=== PATIENT | male | born 1965 | race Caucasian/White ===

== ENCOUNTER → 2017-08-17 17:12 | Outpatient (CLI) | payer BC, SELFPAY ==
[2017-08-17 18:53] LABS: Amphetamine Urine VISTA NEGATIVE (<1000 ng/mL); Barbiturate Urine VISTA NEGATIVE (< 200 ng/mL); Benzodiazepine Urine VISTA NEGATIVE (< 200 ng/mL); Cocaine Urine VISTA NEGATIVE (< 300 ng/mL); Ecstacy Urine VISTA NEGATIVE (< 500 ng/mL); Methadone Urine VISTA NEGATIVE (< 300 ng/mL); PCP Urine VISTA NEGATIVE (< 25 ng/mL); THC Urine VISTA NEGATIVE (< 50 ng/mL); Vista UDS pH Range 5
== END ==
PROVIDERS: Visit Provider Anesthesiology Pain Medicine
DX: F11.20 Opioid dependence, uncomplicated (principal)
CPT/HCPCS: 80307

== ENCOUNTER → 2018-02-01 09:03 | Outpatient (CLI) | payer BC, SELFPAY ==
[2018-02-01 09:54] LABS: Amphetamine Urine VISTA NEGATIVE (<1000 ng/mL); Barbiturate Urine VISTA NEGATIVE (< 200 ng/mL); Benzodiazepine Urine VISTA NEGATIVE (< 200 ng/mL); Cocaine Urine VISTA NEGATIVE (< 300 ng/mL); Ecstacy Urine VISTA NEGATIVE (< 500 ng/mL); Methadone Urine VISTA NEGATIVE (< 300 ng/mL); PCP Urine VISTA NEGATIVE (< 25 ng/mL); THC Urine VISTA NEGATIVE (< 50 ng/mL); Vista UDS pH Range 5
== END ==
PROVIDERS: Family Provider Family Medicine; PCP Family Medicine; Visit Provider Anesthesiology Pain Medicine
DX: F11.20 Opioid dependence, uncomplicated (principal)
CPT/HCPCS: 80307

== ENCOUNTER → 2018-04-25 16:52 | Outpatient (CLI) | payer BC, SELFPAY ==
[2018-04-25 17:53] LABS: Amphetamine Urine VISTA NEGATIVE (<1000 ng/mL); Barbiturate Urine VISTA NEGATIVE (< 200 ng/mL); Benzodiazepine Urine VISTA NEGATIVE (< 200 ng/mL); Cocaine Urine VISTA NEGATIVE (< 300 ng/mL); Ecstacy Urine VISTA NEGATIVE (< 500 ng/mL); Methadone Urine VISTA NEGATIVE (< 300 ng/mL); PCP Urine VISTA NEGATIVE (< 25 ng/mL); THC Urine VISTA NEGATIVE (< 50 ng/mL); Vista UDS pH Range 7
--- OUTSIDE RECORDS SUMMARY | 2018-06-11 23:42 | XMS RPT_ITS | Summary of Care ---
:1965 Author Organization [facility] Address [address] [place] [address] Care Team Providers Name Role Phone Ritesh Choudhary MD Primary Care Provider Enoc Watts MD Unavailable Reason for Visit Reason Comments Depression Torn Hamstring right leg Encounter Details Date Type Department Care Team Description 01/17/2018 Office Visit [facility] Primary Ritesh Choudhary Mixed hyperlipidemia (Primary Dx); Care Physicians MD [place] Gastroesophageal reflux disease, esophagitis presence not specified; [address] Obesity, Class I, BMI 30-34.9 [place] [id number] Allergies Active Allergy Reactions Severity Noted Date Comments Grass Pollen 01/21/2016 Mold 01/21/2016 as of this encounter Medications Prescription Sig. Disp. Refills Start Date End Date Status oxyCODONE-acetaminop Take 1 tablet Active hen (PERCOCET) by mouth 7.5-325 mg per every 8 tablet (eight) hours as needed . polyethylene glycol Take 17 g by 510 g 0 01/27/2016 Active (MIRALAX) 17 mouth daily. gram/dose powder atorvastatin Take 1 (one) 90 tablet 3 06/03/2017 Active (LIPITOR) 10 MG tablet (10 mg tabletIndications: total) by Hyperlipidemia, mouth daily. unspecified hyperlipidemia type ergocalciferol Take 1 (one) 4 capsule 11 06/03/2017 Active (ERGOCALCIFEROL) capsule 50,000 unit (50,000 Units capsuleIndications: total) by Vitamin D deficiency mouth once a week. pantoprazole Take 1 (one) 30 tablet 11 06/14/2017 06/14/2018 Active (PROTONIX) 40 MG tablet (40 mg tablet total) by mouth daily. buPROPion Take 1 (one) 30 tablet 11 07/14/2017 01/17/2018 Discontinued (WELLBUTRIN XL) 300 tablet (300 MG 24 hr tablet mg total) by mouth daily. as of this encounter Active Problems Problem Noted Date Obesity, Class I, BMI 30-34.9 07/17/2017 Overview: BMI: 33.89: Height 5 foot 6 inches weight 210 pounds. 01/17/2018: BMI: 34.8. Height: 66 inches. Weight: 215 pounds 9.6 ounces. Last Assessment & Plan: Calorie counting is the basis for all weight loss. Typically weigh or measure everything that you place in your mouth. Pay attention to those things that you think are free. Include the calories asso ciated with anything you drink as well. Most that you can buy is required by law to have information on it which breaks down the caloric values for serving size. Look at the serving size and then the weight or measure of that serving size is how you calculate the calories. Try to get over half of your daily calories in the first half of the day Need to find the time for exercise. Activity is great but exercise is activity with a heart rate into the target Zone. Consider calorie counting. But weight loss is minimal without exercise since th e body with turn down the BMI or thermostat over time. Exercise allows you to see the benefit of calorie control. Maximum Heart rate or MHR is defined by 220 - age. Then target heart rate or THR is 65-85% of MHR. Need to allow warmup slowly over 5- 10 minute to prevent going too fast to reach THR. Then exercise interval at THR and allow cool down until at least detention back to the pre exercise hear rate. Therefor if resting heart rate was 70 and your target heart rate was 120. You need to keep moving and wo rk the muscles until you heart rate is below 95 beats per minute. This reduces cramping and the risk of cardiac irritability post exercise. Most weight loss can be obtained best by cycling your calories. By counting the calories and then setting your intake at the minimum needs to maintain your lean body mass you conventional body not to t urn down its basal metabolic rate. 80% or more of your total caloric needs are burned due to your basic metabolic rate. So tell your body that you are are dieting and allowing it to turn down your bas al metabolic rate sabotages your ability to lose weight. The way to do this and still lose weight his first start a diet at your minimum needs calculated by year estimated lean body mass. Then the fir st 4 days of every week set your caloric intake to 300-400 keesha per day less. The last 3 days of the week your back to the minimum. This will stop your body from turning down the basal metabolic rate. More than 4 days below the basic minium will have your body trending down how you burn calories. 3500 keesha equals 1 pound and 150 keesha over 30 days below your needs will result in 1-1/2 pounds per month of weight loss or almost 20 pounds per year. URI (upper respiratory infection) 07/14/2017 Last Assessment & Plan: Negative Influenza A , if the cloudy drainage persists or worsens call and we will start an antibiotic. GERD (gastroesophageal reflux disease) 06/14/2017 Last Assessment & Plan: Controlled with the Pantoprazole. Depression, acute 06/14/2017 Last Assessment & Plan: Definite improvement in affect overall even though you are processing a viral infection. Suggest that after 2 weeks you are at full effect of the 150mg once a day and that would increase to the 300 XL once a day. The SR or 12 hours dose cannot be taken all at once. Hyperlipidemia 05/13/2016 Last Assessment & Plan: You are exactly where you need to be. HDL > 45 and the On HDL is almost at the goal of < 130 at 134. Lumbar disc disease 05/16/2015 Overview: L4/L5 Last Assessment & Plan: Currently symptoms controlled continue with diet and exercise as well as stress reduction. Social History Tobacco Use Types Packs/Day Years Used Date Never Smoker Smokeless Tobacco: Never Used Alcohol Use Drinks/Week oz/Week Comments No Sex Assigned at Date Recorded Not on file as of this encounter Last Filed Vital Signs Vital Sign Reading Time Taken Blood Pressure 121/76 01/17/2018 4:00 PM EDT Pulse 83 01/17/2018 4:00 PM EDT Temperature 36.7 ??C (98 ??F) 01/17/2018 4:00 PM EDT Respiratory Rate 16 01/17/2018 4:00 PM EDT Oxygen Saturation 98% 01/17/2018 4:00 PM EDT Inhaled Oxygen Concentration - - Weight 97.8 kg (215 lb 9.6 oz) 01/17/2018 4:00 PM EDT Height 167.6 cm (5' 6) 01/17/2018 4:00 PM EDT Body Mass Index 34.8 01/17/2018 4:00 PM EDT in this encounter Instructions Patient Instructions - Ritesh Choudhary MD - 03/19/2018 6:39 AM EST Formatting of this note may be different from the original. Problem List Items Addressed This Visit Digestive GERD (gastroesophageal reflux disease) Controlled with the Pantoprazole. Other Hyperlipidemia - Primary You are exactly where you need to be. HDL > 45 and the On HDL is almost at the goal of < 130 at 134. Obesity, Class I, BMI 30-34.9 Calorie counting is the basis for all weight loss. Typically weigh or measure everything that youplace in your mouth. Pay attention to those things that you think are free. Include the calories associated with anything you drink as well. Most that you can buy is required by law to have information on it which breaks down the caloric values for serving size. Look at the serving size and then the weight or measure of that serving size is how you calculate the calories. Try to get over half ofyour daily calories in the first half of the day Need to find the time for exercise. Activity is great but exercise is activity with a heart rate into the target Zone. Consider calorie counting. But weight loss is minimal without exercise since the body with turn down the BMI or thermostat over time. Exercise allows you to see the benefit of calorie control. Maximum Heart rate or MHR is defined by 220 - age. Then target heart rate or THR is 65-85% of MHR. Need to allow warmup slowly over 5- 10 minute to prevent going too fast to reach THR. Then exercise interval at THR and allow cool down until at least detention back to the pre exercise hear rate. Therefor if resting heart rate was 70 and your target heart rate was 120. You need to keep moving and work the muscles until you heart rate is below 95 beats per minute. This reduces cramping and the risk of cardiac irritability post exercise. Most weight loss can be obtained best by cycling your calories. By counting the calories and then setting your intake at the minimum needs to maintain your lean body mass you conventional body not to turn down its basal metabolic rate. 80% or more of your total caloric needs are burned due to your basic metabolic rate. So tell your body that you are are dieting and allowing it to turn down your basal metabolic rate sabotages your ability to lose weight. The way to do this and still lose weight his first start a diet at your minimum needs calculated by year estimated lean body mass. Then the first 4 days of every week set your caloric intake to 300-400 keesha per day less. The last 3 days of theweek your back to the minimum. This will stop your body from turning down the basal metabolic rate. More than 4 days below the basic minium will have your body trending down how you burn calories. 3500 keesha equals 1 pound and 150 keesha over 30 days below your needs will result in 1-1/2 pounds per month of weight loss or almost 20 pounds per year. in this encounter Progress Notes Ritesh Choudhary MD - 03/19/2018 6:34 AM ESTFormatting of this note may be different from the original. Subjective Patient ID: Cody Escalera is a 53 y.o. male. HPI Patient presents today for interval visit. Here to follow-up on depression. Patient reports that he has quit taking his Wellbutrin. He stopped the medication shortly after was prescribed. States it made her feel tired all the time. He states that his symptoms that he had before in general have been improving. Right hamstring injury. Patient was seen in the emergency room at [facility] on 01/16/2018. He had a follow-up with Dr. Watts this morning and confirmed an injury to the right hamstring. They are electing to go conservative management. Gastroesophageal reflux disease: Patient with a history of gastroesophageal reflux symptoms. He is following a diet appropriate for diagnosis. He is currently taking pantoprazole 40 mg once a day in a.m. His symptoms have been very well controlled Hyperlipidemia: Patient had been on a regular exercise program until recent injury with his hamstring. He is currently taking atorvastatin 10 mg once a day and sticking to a diet low in simple carbohydrates, controlled calories, and decrease in animal fat. The following portions of the patient's history were reviewed and updated as appropriate: allergies,current medications, past family history, past medical history, past social history, past surgical history and problem list. Review of Systems Constitutional: Positive for activity change. Negative for chills, fatigue and fever. Not able to exercise due to his injury. HENT: Negative for congestion, ear discharge, ear pain, postnasal drip, sinus pressure, sneezing, sore throat, trouble swallowing and voice change. Eyes: Negative for pain, itching and visual disturbance. Respiratory: Negative for apnea, cough, shortness of breath and wheezing. Cardiovascular: Negative for chest pain, palpitations and leg swelling. Gastrointestinal: Negative for abdominal pain, anal bleeding, blood in stool, constipation, diarrheaand rectal pain. Positive for hemorrhoids. Endocrine: Negative for cold intolerance, heat intolerance and polyuria. Genitourinary: Negative for difficulty urinating, dysuria, frequency and urgency. Musculoskeletal: Positive for back pain, gait problem, myalgias and neck pain. Negative for joint swelling and neck stiffness. See history of present illness. Skin: Negative for rash and wound. Allergic/Immunologic: Negative for immunocompromised state. Neurological: Negative for dizziness, seizures, numbness and headaches. Hematological: Negative for adenopathy. Does not bruise/bleed easily. Psychiatric/Behavioral: Positive for sleep disturbance. Negative for decreased concentration, dysphoric mood and suicidal ideas. The patient is not nervous/anxious. Sleep onset is quick less than 15 mints but awakens to urinate at least 2-3 times per night. Able to get back to sleep reasonably quickly. Goes to bed around 11 pm , and up at 6 am. Objective Vitals: 01/17/18 1600 BP: 121/76 BP Location: Left arm Patient Position: Sitting BP Cuff Size: Adult Pulse: 83 Resp: 16 Temp: 98 ??F (36.7 ??C) TempSrc: Oral SpO2: 98% Weight: 97.8 kg (215 lb 9.6 oz) Height: 5' 6 Estimated body mass index is 34.8 kg/m?? as calculated from the following: Height as of this encounter: 5' 6. Weight as of this encounter: 97.8 kg (215 lb 9.6 oz). Physical Exam Constitutional: He is oriented to person, place, and time. He appears well- developed and well-nourished. HENT: Head: Normocephalic. Right Ear: External ear normal. Left Ear: External ear normal. Mouth/Throat: Oropharynx is clear and moist. Eyes: Pupils are equal, round, and reactive to light. Conjunctivae and EOM are normal. Right eye exhibits no discharge. Left eye exhibits no discharge. No scleral icterus. Neck: Normal range of motion. No JVD present. No tracheal deviation present. No thyromegaly present. Cardiovascular: Normal rate and regular rhythm. No murmur heard. Pulmonary/Chest: No stridor. No respiratory distress. He has no wheezes. Abdominal: Soft. He exhibits no distension. There is no tenderness. Musculoskeletal: He exhibits no edema or tenderness. Swelling with defect in the right hamstring. Have wrapped it today with an James wrap. Lymphadenopathy: He has no cervical adenopathy. Neurological: He is alert and oriented to person, place, and time. No cranial nerve deficit. Skin: Skin is warm. No rash noted. Psychiatric: He has a normal mood and affect. His behavior is normal. Judgment and thought content normal. Assessment/Plan: Problem List Items Addressed This Visit Digestive GERD (gastroesophageal reflux disease) Controlled with the Pantoprazole. Other Hyperlipidemia - Primary You are exactly where you need to be. HDL > 45 and the On HDL is almost at the goal of < 130 at 134. Obesity, Class I, BMI 30-34.9 Calorie counting is the basis for all weight loss. Typically weigh or measure everything that youplace in your mouth. Pay attention to those things that you think are free. Include the calories associated with anything you drink as well. Most that you can buy is required by law to have information on it which breaks down the caloric values for serving size. Look at the serving size and then the weight or measure of that serving size is how you calculate the calories. Try to get over half ofyour daily calories in the first half of the day Need to find the time for exercise. Activity is great but exercise is activity with a heart rate into the target Zone. Consider calorie counting. But weight loss is minimal without exercise since the body with turn down the BMI or thermostat over time. Exercise allows you to see the benefit of calorie control. Maximum Heart rate or MHR is defined by 220 - age. Then target heart rate or THR is 65-85% of MHR. Need to allow warmup slowly over 5- 10 minute to prevent going too fast to reach THR. Then exercise interval at THR and allow cool down until at least detention back to the pre exercise hear rate. Therefor if resting heart rate was 70 and your target heart rate was 120. You need to keep moving and work the muscles until you heart rate is below 95 beats per minute. This reduces cramping and the risk of cardiac irritability post exercise. Most weight loss can be obtained best by cycling your calories. By counting the calories and then setting your intake at the minimum needs to maintain your lean body mass you conventional body not to turn down its basal metabolic rate. 80% or more of your total caloric needs are burned due to your basic metabolic rate. So tell your body that you are are dieting and allowing it to turn down your basal metabolic rate sabotages your ability to lose weight. The way to do this and still lose weight his first start a diet at your minimum needs calculated by year estimated lean body mass. Then the first 4 days of every week set your caloric intake to 300-400 keesha per day less. The last 3 days of theweek your back to the minimum. This will stop your body from turning down the basal metabolic rate. More than 4 days below the basic minium will have your body trending down how you burn calories. 3500 keesha equals 1 pound and 150 keesha over 30 days below your needs will result in 1-1/2 pounds per month of weight loss or almost 20 pounds per year. For any new medications prescribed today, patient was educated about indications for the medication,how to take the medication and potential side effects of the medications. Rationale: Overweight (Findings) BMI Discussed elevated Body Mass Index (BMI): Advised regular exercise. Discussed elevated Body Mass Index (BMI): Advised healthy and appropriate diet. Mary Dorantes LPN - 01/17/2018 4:51 PM EDTRooming Documentation How often do you need to have someone help you when you read instructions, pamphlets or other written material from your doctor or pharmacy? Health Literacy Patient Response: Never Are you experiencing any side effects or adverse reactions to your medications? Patient response: No Do you have any problems taking your medications? Patient Response: No Patient states they do understand their medications Are you taking any [id number] medications or supplements? Patient Response: None Since last being seen in this office, have you seen another healthcare provider? Patient Response: Yes. If yes, where did you see this provider? Pain Doctor Mary Dorantes LPN - 01/17/2018 3:57 PM EDTPt here to f/u on his depression. Pt reports he has quit taking the wellbutrin. Pt stopped the medica tion shortly after it was prescribed. Pt reports it made him feel tired all the time. Pt also in [facility] ED 01/16/18. Pt has a tear in his right hamstring. Pt did f/u with Dr. Watts this AM.in this encounter Miscellaneous Notes Assessment & Plan Note - Ritesh Choudhary MD - 03/19/2018 6:38 AM EST Associated Problem(s): Obesity, Class I, BMI 30-34.9Calorie counting is the basis for all weight loss. Typically weigh or measure everything that you place in your mouth. Pay attention to those things that you think are free. Include the calories associated with anything you drink as well. Most that you can buy is required by law to have information on it which breaks down the caloric values for serving size. Look at the serving size and then theweight or measure of that serving size is how you calculate the calories. Try to get over half of your daily calories in the first half of the day Need to find the time for exercise. Activity is great but exercise is activity with a heart rate into the target Zone. Consider calorie counting. But weight loss is minimal without exercise since the body with turn down the BMI or thermostat over time. Exercise allows you to see the benefit of calorie control. Maximum Heart rate or MHR is defined by 220 - age. Then target heart rate or THR is 65-85% of MHR. Need to allow warmup slowly over 5- 10 minute to prevent going too fast to reach THR. Then exercise interval at THR and allow cool down until at least detention back to the pre exercise hear rate. Therefor if resting heart rate was 70 and your target heart rate was 120. You need to keep moving and work the muscles until you heart rate is below 95 beats per minute. This reduces cramping and the risk of cardiac irritability post exercise. Most weight loss can be obtained best by cycling your calories. By counting the calories and then setting your intake at the minimum needs to maintain your lean body mass you conventional body not to turn down its basal metabolic rate. 80% or more of your total caloric needs are burned due to your basic metabolic rate. So tell your body that you are are dieting and allowing it to turn down your basal metabolic rate sabotages your ability to lose weight. The way to do this and still lose weight his first start a diet at your minimum needs calculated by year estimated lean body mass. Then the first 4 days of every week set your caloric intake to 300-400 keesha per day less. The last 3 days of theweek your back to the minimum. This will stop your body from turning down the basal metabolic rate. More than 4 days below the basic minium will have your body trending down how you burn calories. 3500 keesha equals 1 pound and 150 keesha over 30 days below your needs will result in 1-1/2 pounds per month of weight loss or almost 20 pounds per year. Assessment & Plan Note - Ritesh Choudhary MD - 01/17/2018 4:21 PM EDT Associated Problem(s): GERD (gastroesophageal reflux disease)Controlled with the Pantoprazole.Assessment & Plan Note - Ritesh Choudhary MD - 01/17/2018 4:18 PM EDTAssociated Problem(s): HyperlipidemiaYou are exactly where you need to be. HDL > 45 and the On HDL is almost at the goal of < 130at 134.in this encounter Plan of Treatment Health Maintenance Due Date Last Done Comments SEQUENTIAL INFLUENZA VACCINE 05/22/2018 06/14/2017 (Declined) Postponed from 01/14/2018 (#1) (Not Indicated) TETANUS EVERY 10 YR 05/16/2019 05/16/2009 COLONOSCOPY 05/16/2025 05/16/2015 as of this encounter Visit Diagnoses Diagnosis Mixed hyperlipidemia - Primary Gastroesophageal reflux disease, esophagitis presence not specified Obesity, Class I, BMI 30-34.9
--- OUTSIDE RECORDS SUMMARY | 2018-06-11 23:42 | XMS RPT_ITS ---
:1965 Author Organization OHIP Care Team Providers Name Role Phone Farnaz Doyle Attending Unavailable Farnaz Doyle Referring Unavailable Primay Care Physicia, No Primary Care Unavailable Farnaz Doyle Attending Unavailable Farnaz Doyle Referring Unavailable Philip Delvalle Primary Care Unavailable Farnaz Doyle Attending Unavailable Farnaz Doyle Referring Unavailable Philip Delvalle Primary Care Unavailable Funmi, Geoffrey Rosenthal Admitting Unavailable Funmi, Geoffrey Rosenthal Attending Unavailable Funmi, Geoffrey Rosenthal Primary Care Unavailable Funmi, Geoffrey Rosenthal Primary Care Unavailable Saad Sears Admitting Unavailable Saad Sears Attending Unavailable FUNMI, GEOFFREY COLEMAN Attending Unavailable FUNMI, GEOFFREY COLEMAN Primary Care Unavailable FUNMI, GEOFFREY COLEMAN Attending Unavailable FUNMI, GEOFFREY COLEMAN Primary Care Unavailable EDWIGE MANNING Attending Unavailable FUNMI, GEOFFREY COLEMAN Primary Care Unavailable ALBERT TREVINO Attending Unavailable FUNMI, GEOFFREY COLEMAN Primary Care Unavailable FUNMI, GEOFFREY COLEMAN Attending Unavailable FUNMI, GEOFFREY COLEMAN Primary Care Unavailable FUNMI, GEOFFREY COLEMAN Attending Unavailable FUNMI, GEOFFREY COLEMAN Primary Care Unavailable KATERINA SINCLAIR Attending Unavailable FUNMI, GEOFFREY COLEMAN Primary Care Unavailable ALBERT TREVINO Attending Unavailable FUNMI, GEOFFREY COLEMAN Primary Care Unavailable ALBERT TREVINO Attending Unavailable FUNMI, GEOFFREY COLEMAN Primary Care Unavailable FUNMI, GEOFFREY COLEMAN Attending Unavailable FUNMI, GEOFFREY COLEMAN Primary Care Unavailable PROBLEMS PROBLEMS DATE TYPE CONDITION / CODE ATTENDING STATUS SOURCE 04/25/2018 Unknown F11.20 - Opioid BasalFarnaz hubbard Active [place] dependence, Community uncomplicated / Hospital F11.20(ICD-10) Repository 2018 Admitting Calculus of ureter / NA [employer] Diagnosis N20.1(ICD-10) [place] Rep[place] 2018 Admitting Unspecified NA [employer] Diagnosis hydronephrosis / [place]) N13.30(ICD-10) Repository 02/10/2018 Admitting Strain of muscle, BELINDA, [employer] diagnosis fascia and tendon of ALBERT Worthy the posterior muscle Repository group at thigh level, right thigh, subsequent encounter / S76.311D(ICD-10) 01/17/2018 Admitting Unknown / BELINDA, [employer] diagnosis UNK(Unknown) ALBERT Worthy Repository 07/14/2017 Admitting Acute upper [employer] diagnosis respiratory JARED Three infection, Repository unspecified / J06.9(ICD-10) 07/14/2017 Admitting Other viral agents FUNMI, [employer] diagnosis as the cause of JARED Three diseases classified Repository elsewhere / B97.89(ICD-10) 07/14/2017 Admitting Other general FUNMI, [employer] diagnosis symptoms and signs / JARED Three R68.89(ICD-10) Repository 06/14/2017 Admitting Major depressive GEOFFREY CHOUDHARY Active [facility] diagnosis disorder, single JARED Three episode, unspecified Repository / F32.9(ICD-10) 06/14/2017 Admitting Gastro-esophageal GEOFFREY CHOUDHARY [facility] diagnosis reflux disease JARED Worthy without esophagitis Repository / K21.9(ICD-10) PROCEDURES PROCEDURES No Procedure Records FoundRESULTS RESULTS URINE DRUG SCREEN Collected: 04/25/2018 Status: F Source: [place]LICA (VISTA) 4:58 PM [facility] REPOSITORY Order Comment: List of Drugs Taken or Suspected? UNK TYPE CODE TESTS RESULT OUT OF RANGE REFERENCE UNITS LAB L505.0075 TO BE Normal CONFIRMED Result Comment: CONFIRMATORY TESTING FOR ALL POSITIVE URINE DRUG SCREEN RESULTS WILL ONLY BE SENT OUT UPON PHYSICIAN ORDER. VISTA Urine Drug Screen methods provide only preliminary analytical test results. A more specific alternate chemical method must be used in order to obtain a confirmed analytical result. Gas chromatography/mass spectrometery (GC/MS) is the preferred confirmatory method. Clinical consideration and professional judgement should be applied to any drug of abuse test result, particularly when preliminary positive results are used. URINE TCA TESTING MUST BE ORDERED SEPARATELY. USE TEST MNEMONIC: [facility] LAB L505.5005 VISTA UDS PH 7 Normal LAB L505.5015 <1000 ng/mL AMPHETAMINES Normal NEGATIVE LAB L505.5025 < 200 ng/mL BARBITIURATES Normal NEGATIVE LAB L505.5035 < 200 ng/mL BENZODIAZIPINE Normal NEGATIVE LAB L505.5045 < 300 ng/mL COCAINE Normal NEGATIVE LAB L505.5055 < 500 ng/mL ECSTACY Normal NEGATIVE LAB L505.5065 < 300 ng/mL METHADONE Normal NEGATIVE LAB L505.5075 < 300 ng/mL OPIATES Normal NEGATIVE LAB L505.5085 < 25 ng/mL PCP Normal NEGATIVE LAB L505.5095 < 50 ng/mL THC Normal NEGATIVE Performed By: #### L505.5000 #### [facility] [address] [place], [address] MISCELLANEOUS LAB Collected: 04/25/2018 Status: F Source: ANGÉLICA PROCEDURE 4:58 PM [facility] REPOSITORY Order Comment: Test(s) Ordered: [id number] URINE TOX RUN LOWEST TEST TYPE CODE TESTS RESULT OUT OF RANGE REFERENCE UNITS LAB L801.1541 Normal [facility] LAB TEST Result Comment: [id number] 6+OXYCODONE-BUND (ng/mL) DRUG RESULT SCREEN CUTOFF ____ Amphetamines,Urine Negative ng/mL 1000 Amphetamine test includes Amphetamine and Methamphetamine. Barbiturates Negative ng/mL 200 Benzodiazepines Negative ng/mL 200 Cannabinoid Negative ng/mL 20 Cocaine (Metab) Negative ng/mL 300 Opiates Negative ng/mL 300 Opiates test includes Codeine, Morphine, Hydromorphone, Hydrocodone. Oxycodone/Oxymorphone,Urine Positive ng/mL 300 Test includes Oxydodone and Oxymorphone. Oxycodone Positive Oxycodone GC/MS 981 ng/mL 300 Oxymorphone Positive Oxymorphone GC/MS 596 ng/mL 300 TESTING PERFORMED AT [facility]. ORIGINAL REPORT ON FILE IN LAB CONTAINS ADDITIONAL TEST SITE INFORMATION. Performed By: #### L801.1541 #### [facility] [address] [place], [place] [address]all naresh. [place], [place], [id number] URINE MACROSCOPIC Collected: 2018 Status: F Source: [employer] 7:15 PM SYSTEM ([place]) REPOSITORY TYPE CODE TESTS RESULT OUT OF RANGE REFERENCE UNITS LAB UCOL YELLOW URINE COLOR YELLOW LAB [facility] CLEAR URINE CLARITY CLEAR LAB USPG 1.010-1.025 URINE SPEC GRAVITY 1.015 LAB UPH 5.0-7.0 URINE PH 6.5 LAB AUTP NEGATIVE mg/dl URINE TOTAL PROTEIN NEGATIVE LAB UGL NEGATIVE mg/dl URINE GLUCOSE NEGATIVE LAB UKET NEGATIVE mg/dl URINE KETONE NEGATIVE LAB UBIL NEGATIVE URINE BILIRUBIN NEGATIVE LAB UHGB NEGATIVE URINE Abnormal HEMOGLOBIN MODERATE LAB UNIT NEGATIVE URINE NITRATES NEGATIVE LAB UROB 0.2-1.0 mg/dl URINE UROBILINOGEN 0.2 LAB ULEUK NEGATIVE URINE LEUKOTEST NEGATIVE Performed By: #### ALINA, VIRI #### Testing performed at [address] [address] URINE MICROSCOPIC Collected: 2018 Status: F Source: [employer] 7:15 PM [place] ([place] REPOSITORY TYPE CODE TESTS RESULT OUT OF RANGE REFERENCE UNITS LAB UWBC NEGATIVE /HPF URINE 1 TO 5 WBC'S LAB URBC NEGATIVE /HPF URINE TOO Abnormal RBC'S NUMEROUS TO COUNT LAB EPI /HPF 1 TO 5 EPITHELIAL CELLS LAB MUCUS NEGATIVE MUCUS NEGATIVE LAB BACT NEGATIVE TRACE Abnormal BACTERIA LAB FERN NONE NONE CRYSTAL LAB CASTS NONE /LPF CASTS NONE LAB UCOM URINE REFLEX COMMENT CULTURE PER ESTABLISHED CRITERIA. Performed By: #### ALINA, VIRI #### Testing performed at [address] [address] Observed: 2018 Status: F Source: [employer] URINE CULTURE 7:15 PM [place] REPOS[place] SPECIMEN DESCRIPTION URINE CLEAN CATCH UA DIPSTICK LEUKOCYTE NEGATIVE * Result Note: NITRITE NEGATIVE * CULTURE NO GROWTH 2 DAYS * Result Note: Testing performed at [place] [address] * REPORT STATUS 02/28/2018 * Result Note: FINAL * Performed By: #### AURNC #### Testing performed at [address] [address] Testing performed at [address] [address] [address] ABDOMEN/PELVIS WITHOUT Observed: 2018 Status: F Source: [employer] CONTRAST 6:10 PM [place] ([place]) REPOSITORY EXAM: CT ABDOMEN/PELVIS WITHOUT CONTRAST CLINICAL STATEMENT: Left lower quadrant and back pain today. COMPARISON: CT abdomen and pelvis May 10, 2017. TECHNIQUE: CT examination of the abdomen and pelvis without IV contrast. Coronal and sagittal reformations were performed. Dose reduction techniques were achieved by using automated exposure control and/or adjustment of mA and/or kV according to patient size and/or use of iterative reconstruction technique. FINDINGS: KUB FINDINGS: There is a 5 mm stone in the proximal left ureter with a density of 700 Hounsfield units resulting in mild left-sided hydronephrosis. There are no additional ureteral or bladder stones. No right-sided hydronephrosis. Right kidney contains 2 stones with the largest measuring 4 mm. The left kidney contains a single punctate stone in the interpolar region. There is a similar cyst in the inferior pole cortex of the right kidney measuring about 1.2 cm. Urinary bladder is nondistended. CT ABDOMEN/PELVIS: Lung bases show mild dependent atelectasis. Stable small focus of linear atelectasis or scar in the lingula. Evaluation of solid organs is limited without contrast. The liver, spleen, pancreas and adrenal glands are grossly normal. The gallbladder appears normal with no calcified stones. Small bowel loops show no signs of obstruction or appreciable loop thickening without contrast. There is no bulky mesenteric or retroperitoneal adenopathy. No intra-abdominal or pelvic ascites. Prostate gland appears grossly normal. As before, there is severe degenerative disc disease L4-L5 with a stable grade 1 spondylolisthesis L4 on L5 secondary to chronic bilateral spondylolysis. IMPRESSION: 1. Proximal left ureteral stone measuring 5 mm resulting in mild left-sided hydronephrosis. 2. Several bilateral renal stones measuring up to 4 mm. 3. Stable grade 1 spondylolisthesis L4 on L5 secondary to chronic bilateral spondylolysis associated with severe degenerative disc disease. CBC Collected: 2018 Status: F Source: [employer] 5:48 PM [place] ([place]) REPOSITORY TYPE CODE TESTS RESULT OUT OF REFERENCE UNITS RANGE LAB WBC 3.6-11.0 /cmm WBC COUNT 6.7 LAB RBC 4.0-6.1 /cmm RBC COUNT 5.00 LAB HGB 14.0-18.0 G/DL Low HEMOGLOBIN 13.9 LAB HCT 42.0-52.0 % Low HEMATOCRIT 41.3 LAB MCV 80.0-100.0 FL MCV 82.5 LAB MCH 26.0-35.0 PG MCH 27.8 LAB MCHC 27.0-37.0 G/DL MCHC 33.7 LAB RDW 11.5-14.5 % RDW High 14.7 LAB PLTC 130.0-400.0 /cmm PLATELET COUNT 187 LAB MPV 7.4-11.0 FL MPV 7.4 LAB DTYPE % DTYPE AUTO DIFF LAB NEUT 37.0-75.0 % NEUTROPHIL 56.5 LAB LYMP 20.0-55.0 % LYMPHOCYTE 28.1 LAB AOMONO 0.0-10.0 % MONOCYTE High 12.3 LAB EOS 0.0-11.0 % EOSINOPHIL 2.3 LAB BASO 0.0-2.0 % BASOPHIL 0.8 LAB ANC 1.0-7.0 x10 ABSOLUTE NEUTROPHIL COUNT 3.8 LAB ALYM X10 ABSOLUTE LYMPHOCYTE 1.90 LAB AMONO X10 ABSOLUTE MONOCYTE 0.8 LAB AEO X10 ABSOLUTE EOS 0.20 LAB ABAS X10 ABSOLUTE BAS 0.1 Performed By: #### ACBC, CMPF #### Testing performed at [address] [address] [facility] FASTING Collected: 2018 Status: F Source: [facility] 5:48 PM SYSTEM ([place]) REPOSITORY TYPE CODE TESTS RESULT OUT OF REFERENCE UNITS RANGE LAB GLF 70-100 MG/DL High GLUCOSE 101 FASTING Result Comment: NORMAL <100 mg/dL PREDIABETES 101-126 mg/dL DIABETES 126 mg/dL or higher LAB BUN 7-20 MG/DL BLOOD UREA 19 NITROGEN LAB CRET 0.66-1.25 MG/DL CREATININE SERUM 1.0 LAB NA 136-145 MMOL/L SODIUM 139 LAB K 3.5-5.1 MMOL/L POTASSIUM 3.5 LAB CL 98-107 MMOL/L CHLORIDE 107 LAB CA 8.4-10.2 MG/DL CALCIUM 9.0 LAB TP 6.3-8.2 GM/DL TOTAL PROTEIN 7.5 LAB ALB 3.5-5.0 G/dl ALBUMIN 4.3 LAB TBIL 0.2-1.2 MG/DL BILIRUBIN TOTAL 0.5 LAB AST 15-41 IU/L AST 21 LAB ALKP 38-126 IU/L ALK 47 PHOSPHATASE LAB CO2 22-30 MMOL/L CO2 24 LAB AG 1.3-2.2 RATIO A:G RATIO 1.3 LAB ALT 17-63 IU/L ALT 24 LAB GFR ml/min/1.73s q.m EST. GFR,Non >60 LAB GFRB ml/min/1.73s q.m EST. GFR, >60 [place] LAB GFRCOM GFR Information Average GFR for 50-59 years old = 93. Result Comment: Chronic Kidney disease, GFR = <60. Kidney failure, GFR = <15. The GFR estimate is not adjusted for extreme body surface area or acute process, nor has it been validated for women or ethnic groups other than and . Performed By: #### ACBC, CMPF #### Testing performed at [facility] [address] [place] [address] URINE DRUG SCREEN Collected: 02/01/2018 Status: F Source: ANGÉLICA (YANA) 9:09 AM [facility] REPOSITORY Order Comment: Comments: [id number] URINE DRUG SCREEN RUN LOWEST TEST List of Drugs Taken or Suspected? UNK TYPE CODE TESTS RESULT OUT OF RANGE REFERENCE UNITS LAB L505.0075 TO BE Normal CONFIRMED Result Comment: CONFIRMATORY TESTING FOR ALL POSITIVE URINE DRUG SCREEN RESULTS WILL ONLY BE SENT OUT UPON PHYSICIAN ORDER. VISTA Urine Drug Screen methods provide only preliminary analytical test results. A more specific alternate chemical method must be used in order to obtain a confirmed analytical result. Gas chromatography/mass spectrometery (GC/MS) is the preferred confirmatory method. Clinical consideration and professional judgement should be applied to any drug of abuse test result, particularly when preliminary positive results are used. URINE TCA TESTING MUST BE ORDERED SEPARATELY. USE TEST MNEMONIC: [facility] LAB L505.5005 VISTA UDS PH 5 Normal LAB L505.5015 <1000 ng/mL AMPHETAMINES Normal NEGATIVE LAB L505.5025 < 200 ng/mL BARBITIURATES Normal NEGATIVE LAB L505.5035 < 200 ng/mL BENZODIAZIPINE Normal NEGATIVE LAB L505.5045 < 300 ng/mL COCAINE Normal NEGATIVE LAB L505.5055 < 500 ng/mL ECSTACY Normal NEGATIVE LAB L505.5065 < 300 ng/mL METHADONE Normal NEGATIVE LAB L505.5075 < 300 ng/mL OPIATES Normal NEGATIVE LAB L505.5085 < 25 ng/mL PCP Normal NEGATIVE LAB L505.5095 < 50 ng/mL THC Normal NEGATIVE Performed By: #### L505.5000 #### [facility] [address] [place] [place], [address] MISCELLANEOUS LAB Collected: 02/01/2018 Status: F Source: ANG[facility]LICA PROCEDURE 9:09 AM [facility] REPOSITORY Order Comment: Comments: [id number] URINE DRUG SCREEN RUN LOWEST TEST Test(s) Ordered: [id number] URINE DRUG SCREEN RUN LOWEST TEST TYPE CODE TESTS RESULT OUT OF RANGE REFERENCE UNITS LAB L801.1541 Normal [facility] LAB TEST Result Comment: [id number] 6+OXYCODONE-BUND (ng/mL) DRUG RESULT SCREEN CUTOFF ____ Amphetamines,Urine Negative ng/mL 1000 Amphetamine test includes Amphetamine and Methamphetamine. Barbiturates Negative ng/mL 200 Benzodiazepines Negative ng/mL 200 Cannabinoid Negative ng/mL 20 Cocaine (Metab) Negative ng/mL 300 Opiates Negative ng/mL 300 Opiates test includes Codeine, Morphine, Hydromorphone, Hydrocodone. Oxycodone/Oxymorphone,Urine Negative ng/mL 300 Test includes Oxydodone and Oxymorphone. TESTING PERFORMED AT [facility]. ORIGINAL REPORT ON FILE IN LAB CONTAINS ADDITIONAL TEST SITE INFORMATION. Performed By: #### L801.1541 #### [facility] [place], [address] XR PELVIS 1 OR 2 Observed: 01/16/2018 Status: F Source: [facility] 7:06 PM [facility] REPOSITORY Exam Date/Time: 01/16/2018 19:16 EDT Reason for Exam: Pain, Traumatic Report STUDY: XR Pelvis 1 or 2 Views; XR Femur Min 2 Views Right; 01/16/2018 7:16 pm INDICATION: Pain, Traumatic; Leg pain. COMPARISON: None. ACCESSION NUMBER(S): [id number]; [id number] ORDERING CLINICIAN: Saad Sears FINDINGS: There is no fracture. There is no dislocation. No significant degenerative changes seen. No soft tissue abnormality seen along the right thigh.. IMPRESSION: No fracture or dislocation. FINAL REPORT Dictated: 01/16/2018 7:38 pm Austin Ricks MD Signed (Electronic Signature): 01/16/2018 7:38 pm Signed by: Austin Ricks MD Technologist: [facility] XR FEMUR MIN 2 Observed: 01/16/2018 Status: F Source: [facility] VIEWS RIGHT 7:06 PM [facility] REPOSITORY Exam Date/Time: 01/16/2018 19:16 EDT Reason for Exam: Leg pain Report STUDY: XR Pelvis 1 or 2 Views; XR Femur Min 2 Views Right; 01/16/2018 7:16 pm INDICATION: Pain, Traumatic; Leg pain. COMPARISON: None. ACCESSION NUMBER(S): [id number]; [id number] ORDERING CLINICIAN: Saad Sears FINDINGS: There is no fracture. There is no dislocation. No significant degenerative changes seen. No soft tissue abnormality seen along the right thigh.. IMPRESSION: No fracture or dislocation. FINAL REPORT Dictated: 01/16/2018 7:38 pm Austin Ricks MD Signed (Electronic Signature): 01/16/2018 7:38 pm Signed by: Austin Ricks MD Technologist: [facility] CBC W/ AUTO DIFF Collected: 01/13/2018 Status: F Source: [facility] 6:14 AM [facility] REPOSITORY TYPE CODE TESTS RESULT OUT OF RANGE REFERENCE UNITS LAB 97322258(L 3.6-11.0 E3/mcL OINC) Normal WBC 6.6 LAB 31551147(L 3.90-6.10 E6/mcL OINC) Normal RBC 4.61 LAB 62238689(L 13.5-18.0 G/DL OINC) Low Hgb 13.0 LAB 79142939(L 42.0-52.0 % OINC) Low Hct 39.2 LAB 61535689(L 11.5-14.5 % OINC) Normal RDW 13.5 LAB 49937775(L 27.0-31.0 pg OINC) Normal MCH 28.1 LAB 69044414(L 33.0-37.0 G/DL OINC) Normal MCHC 33.1 LAB 89122191(L 78.0-100.0 fL OINC) Normal MCV 85.0 LAB 78522700(L 7.4-11.0 fL OINC) Normal MPV 7.8 LAB 89731785(L 130-400 E3/mcL OINC) Normal Platelet 230 Performed By: #### [id number] #### [facility] [place] [address] AUTO DIFF Collected: 01/13/2018 Status: F Source: [facility] 6:14 AM [facility] REPOSITORY Order Comment: Order Added by Discern Expert. TYPE CODE TESTS RESULT OUT OF RANGE REFERENCE UNITS LAB 56171426(L 37.0-75.0 % OINC) Normal Neutro Auto 55.7 LAB 64507415(L 20.0-55.0 % OINC) Normal Lymph Auto 32.5 LAB 76566462(L 0.0-10.0 % OINC) High [place]ill Auto 10.5 LAB 15012926(L 0.0-11.0 % OINC) Normal Eos Auto 0.9 LAB 78823128(L 0.0-2.0 % OINC) Normal Basophil Auto 0.4 LAB 40453963(L 1.4-6.5 E3/mcL OINC) Normal Neutro 3.7 Absolute LAB 08640967(L 1.2-3.4 E3/mcL OINC) Normal Lymph Absolute 2.1 LAB 91245860(L 0.0-0.7 E3/mcL OINC) Normal Estill Absolute 0.7 LAB 09622863(L 0.0-0.7 E3/mcL OINC) Normal Eos Absolute 0.1 LAB 85168670(L 0.0-0.2 E3/mcL OINC) Normal Basophil 0.0 Absolute Performed By: #### [id number] #### [place] [employer] [address] [place] [address] TSH Collected: 01/13/2018 Status: F Source: [facility] 6:14 AM [facility] REPOSITORY TYPE CODE TESTS RESULT OUT OF RANGE REFERENCE UNITS LAB 60672799(LO 0.30-5.60 mIU/m INC) Normal TSH 2.79 Performed By: #### [id number] #### [facility] [employer] [facility] [place] [address] CMP Collected: 01/13/2018 Status: F Source: [facility] 6:14 AM [facility] REPOSITORY TYPE CODE TESTS RESULT OUT OF RANGE REFERENCE UNITS LAB 84474290(L 70-99 mg/dL OINC) Glucose Normal Lvl 99 LAB 22130731(L 8.4-10.2 mg/dL OINC) Calcium Normal Lvl 8.9 LAB 21014416(L 136-145 mEq/L OINC) Sodium Normal Lvl 140 LAB 73045858(L 3.5-5.1 mEq/L OINC) Normal Potassium Lvl 4.0 LAB 71425175(L 98-107 mEq/L OINC) High Chloride 108 LAB 36484150(L 24.0-30.0 mEq/L OINC) CO2 Normal 26.3 LAB 38527017(L 7-18 mg/dL OINC) High BUN 19 LAB 9456736(LO 0.6-1.3 mg/dL INC) Normal Creatinine 1.1 LAB 90122540(L 42-121 Int._Unit/ OINC) L Alk Phos Normal 42 LAB 52782284(L 0.2-1.0 mg/dL OINC) Bili Normal Total 1.0 LAB 33725977(L 3.2-5.0 G/DL OINC) Albumin Normal Lvl 4.0 LAB 08116822(L 6.4-8.3 G/DL OINC) Total Normal Protein 6.9 LAB 91940794(L 10-40 Int._Unit/ OINC) L ALT Normal 18 LAB 12738681(L 10-42 Int._Unit/ OINC) L AST Normal 17 LAB 40960239(L 5.4-30.0 ratio OINC) Normal BUN/Creat Ratio 17.3 LAB 20410230(L 2.0-4.0 G/DL OINC) Globulin Normal 2.9 LAB 34407732(L 1.1-1.9 ratio OINC) A/G Normal Ratio 1.4 Performed By: #### [id number] #### [facility] [employer] [address] [place] [address] EGFR Collected: 01/13/2018 Status: F Source: [facility] 6:14 AM [facility] REPOSITORY Order Comment: Order added by Discern Expert. TYPE CODE TESTS RESULT OUT OF RANGE REFERENCE UNITS LAB 20971857(LO mL/min/1.73 INC) m2 Normal eGFR >60 LAB 58955536(LO mL/min/1.73 INC) m2 Normal eGFR AA >60 Performed By: #### [id number] #### [facility] [address] [place] [address] LIPID PROFILE Collected: 01/13/2018 Status: F Source: [facility] 6:14 AM [facility] REPOSITORY TYPE CODE TESTS RESULT OUT OF RANGE REFERENCE UNITS LAB 93524247(LO 50-200 mg/dL INC) Normal Chol 184 Result Comment: TOTAL CHOLEESTEROL: <200 NORMAL 200 - 239 BORDERLINE HIGH >240 HIGH LAB 46170720(LOINC) >=41 mg/dL Normal HDL 50 LAB 05090995(LOINC) 0-130 mg/dL Normal LDL 120 Result Comment: <100 OPTIMAL 100-129 NEAR / ABOVE OPTIMAL 130-159 BORDERLINE HIGH 160-189 HIGH >190 VERY HIGH CALC LDL NOT VALID WHEN TRIGLYCERIDE IS >400 MG/DL LAB 64063888(LOINC) 35-150 mg/dL Normal Trig 71 Result Comment: <150 NORMAL 150-199 BORDERLINE HIGH 200-499 HIGH >500 VERY HIGH LAB 77015911(LOINC) Normal VLDL 14 Performed By: #### [id number] #### [facility] [address] [place] [id number] URINE DRUG SCREEN Collected: 08/17/2017 Status: F Source: [place] (VISTA) 5:21 PM [facility] REPOSITORY Order Comment: List of Drugs Taken or Suspected? . TYPE CODE TESTS RESULT OUT OF RANGE REFERENCE UNITS LAB L505.0075 TO BE Normal CONFIRMED Result Comment: CONFIRMATORY TESTING FOR ALL POSITIVE URINE DRUG SCREEN RESULTS WILL ONLY BE SENT OUT UPON PHYSICIAN ORDER. VISTA Urine Drug Screen methods provide only preliminary analytical test results. A more specific alternate chemical method must be used in order to obtain a confirmed analytical result. Gas chromatography/mass spectrometery (GC/MS) is the preferred confirmatory method. Clinical consideration and professional judgement should be applied to any drug of abuse test result, particularly when preliminary positive results are used. URINE TCA TESTING MUST BE ORDERED SEPARATELY. USE TEST MNEMONIC: [facility] LAB L505.5005 VISTA UDS PH 5 Normal LAB L505.5015 <1000 ng/mL AMPHETAMINES Normal NEGATIVE LAB L505.5025 < 200 ng/mL BARBITIURATES Normal NEGATIVE LAB L505.5035 < 200 ng/mL BENZODIAZIPINE Normal NEGATIVE LAB L505.5045 < 300 ng/mL COCAINE Normal NEGATIVE LAB L505.5055 < 500 ng/mL ECSTACY Normal NEGATIVE LAB L505.5065 < 300 ng/mL METHADONE Normal NEGATIVE LAB L505.5075 < 300 ng/mL OPIATES Normal NEGATIVE LAB L505.5085 < 25 ng/mL PCP Normal NEGATIVE LAB L505.5095 < 50 ng/mL THC Normal NEGATIVE Performed By: #### L505.5000 #### [facility] [address] [place], [address] MISCELLANEOUS LAB Collected: 08/17/2017 Status: F Source: ANG[place]LICA PROCEDURE 5:21 PM [facility] REPOSITORY Order Comment: Test(s) Ordered: [id number] TYPE CODE TESTS RESULT OUT OF RANGE REFERENCE UNITS LAB L801.1541 Normal [facility] LAB TEST Result Comment: TEST RESULT UNITS REF INTERVAL [id number] 6+Oxycodone-Bund Amphetamines, Urine Negative ng/mL Alncph=7766 Amphetamine test includes Amphetamine and Methamphetamine. Barbiturate Negative ng/mL Qysaqb=443 Benzodiazepines Negative ng/mL Izcvjb=775 Cannabinoids Negative ng/mL Cutoff=20 Cocaine (Metabolite) Negative ng/mL Rnkjei=011 Opiates Negative ng/mL Bfpono=796 Opiate test includes Codeine, Morphine, Hydromorphone, Hydrocodone. Oxycodone/Oxymorph Positive Krchol=463 Test includes Oxycodone and Oxymorphone Oxycodone Positive Oxycodone (GC/MS) 911 ng/mL Agravp=015 Oxymorphone Positive Oxymorphone (GC/MS) 957 ng/mL Owyocq=740 TESTING PERFORMED AT [facility]. ORIGINAL REPORT ON FILE IN LAB CONTAINS ADDITIONAL TEST SITE INFORMATION. Performed By: #### L801.1541 #### [facility] [address] [place], [address] ALLERGIES ALLERGIES DATE TYPE / CODE NAME / CODE REACTION SEVERITY SOURCE 01/21/2016 DRUG GRASS POLLEN [facility] INGREDI/419 Repository [id number](SNOM ED CT) 01/21/2016 DRUG MOLD [facility] INGREDI/419 Repository 994740(SNOM ED CT) Drug/[id number] No Known [facility] 003(SNOMED Allergies [facility] CT) System Repository ENCOUNTERS ENCOUNTERS ADMIT/DISCHARGE ACCOUNT NUMBER ADMITTING ENCOUNTER LOCATION SOURCE CLASS 04/25/2018 [id number] Ambulatory [facility] Hospital ding:LAB Repository 02/28/2018 [id number] Ambulatory Building:[facility] Repository 02/25/2018/02/26/20 [id number] [address] [place] [address] DRoom: System ([place]) [id number]: Repository E001 02/10/2018/02/11/20 [id number] Ambulatory Building:[place] [address] [address] Three MBO Repository 02/08/2018 [id number] Ambulatory Building:[facility] Three ER Repository 02/01/2018 [id number] Ambulatory [facility] ding:LAB Repository 01/20/2018 [id number] Ambulatory Building:[facility] ORTHOSTUMBO2 Three Repository 01/17/2018 [id number] [facility] 01/17/2018/01/18/20 [id number] Ambulatory Building:[place] [address] [facility] Three MBO Repository 01/17/2018 [id number] [facility] 01/16/2018/01/17/20 [id number] Rings, Emergency [facility] ding:[facility] System EDRoom: Repository 01/16/2018 [id number] Ambulatory [address] [place] [address] Repository 01/13/2018/01/14/20 [id number] Geoffrey Choudhary Ambulatory [facility] ding:.[facility] Repository 01/13/2018 [id number] Ambulatory [address] [place] [address] Repository 01/13/2018 [id number] Ambulatory Building:[facility] Three Repository 08/17/2017 [id number] Ambulatory [facility] ding:LAB Repository 07/14/2017/07/15/19 [id number] Ambulatory Building:[address] Three Repository 06/14/2017/06/14/19 [id number] Ambulatory Building:[address] Three Repository PAYERS PAYERS ENCOUNTER GUARANTOR PAYER SUBSCRIBER SOURCE 04/25/2018 MATILDA Primary MATILDA [facility] [id number] Insurance:ANTHEMPolic TRINEDOB: Community [place] y Number: [id number], [place] [id number] Repository [address]Dqa: [phone]) Date:5368-06-71[phone] () 465102AECHSZL, [place] [address]NA: 04/25/2018 Secondary NOT GIVENRUST Insurance:SELF PAY [facility] Number: Effective Repository Date:2018-04-25 02/28/2018 MATILDA [facility] TRINEDOB: Insurance:ANTHEMPolic TRINEDOB: Three Repository [id number] y Number: [id number] [facility] [id number] 0 [place], [place] Date:8972-85-49[place]JSTORY [place], [place] [address]Mty: [phone]) [id number], [place] [phone] () [address]YG: 02/10/2018 MATILDA [facility] TRINEDOB: Insurance:ANTHEMPolic TRINEDOB: Three Repository [id number] y Number: [id number] [place] [id number] 0 [place], [place] Date:7758-52-37AVSTORY [place], [place] [address]Bhf: [phone]) [id number] VIL[place] [phone] () [address]SY: 02/08/2018 MATILDA [facility] TRINEDOB: Insurance:ANTHEMPolic TRINEDOB: Three Repository y Number: [id number] [place] [id number] 0 [place], [place] Date:1950-05-19LM [place], [place] [address]Uxc: [phone], [place] [phone] (HP) [address]QH: 02/01/2018 [facility] [id number] Insurance:ANTHEMPolic TRINEDOB: Community [place] y Number: [id number], [place] [id number] Repository [address]Ewf: ([phone]) Date:6342-22-34KM [phone] (HP) [id number], [place] [address]SR: 02/01/2018 Secondary NOT GIVENUNK [place] Insurance:SELF PAY [facility] Number: Effective Repository Date:2018-02-01 01/20/2018 [facility] TRINEDOB: Insurance:ANTHEMPolic TRINEDOB: Three Repository y Number: [id number] [place] [id number] 0 [place], [place] Date:7813-66-95OUSTORY [place], [place] [address]Sva: [phone] [id number], [place] [phone] (HP) [address]XV: 01/17/2018 [facility] TRINEDOB: Insurance:ANTHEMPolic TRINEDOB: Three Repository y Number: [id number] [place] [id number] 0 [place], [place] Date:8007-17-88HHSTORY [place], [place] [address]Jiu: [phone]) [id number], [place] [phone] (HP) [address]AI: 01/17/2018 [facility] TRINEDOB: Insurance:ANTHEMPolic TRINEDOB: Three Repository y Number: [id number] [facility] [id number] 0 [place], [place] Date:6495-24-41DJSTORY CITY, [place] [address]Nnq: [phone], [place] [phone] (HP) [address]BI: 01/17/2018 [facility] TRINEDOB: Insurance:ANTHEMPolic TRINEDOB: Three Repository y Number: [id number] [facility] [id number] 0 [place], [place] Date:7275-12-56YOSTORY [place], [place] [address]Rup: [phone], [place] [phone] (HP) [address]MU: 01/16/2018 MATILDA [facility] TRINEDOB: Insurance:ANTHEMPolic TRINEDOB: [facility] y Number: Effective [id number] System [place] Date:2018-01-16 [place] 0671-62-74[address] [place] [address]Roq: Name:[facility] [address]Dil: [id number], [place] (HP) [address]KN: [phone] (HP) [phone] () 01/16/2018 [facility] TRINEDOB: Insurance:AnthemPolic TRINEDOB: [facility] y Number: [id number] Repository [place] [id number] 8 [place], [place] Date:Plan Name:[place], [place] [id number]: [phone]: (HP) (HP) 01/13/2018 MATILDA [facility] TRINEDOB: Insurance:ANTHEMPolic TRINEDOB: [facility] y Number: Effective [id number] System [place] Date:2018-01-13 [place] Repository [place], [place] 9898-15-91[place]jxfEldora, [place] [address]Eph: Name:[address]Tel: [address] [place] [address] (HP) [address]TL: [phone] (HP) [phone] () 01/13/2018 [facility] TRINEDOB: Insurance:AnthemPolic TRINEDOB: Hospitals y Number: [id number] Repository [facility] [id number] 8 [place], [place] Date:Plan Name:[place], [place] [id number]: [phone]: (HP) (HP) 01/13/2018 [facility] TRINEDOB: Insurance:ANTHEMPolic TRINEDOB: Three Repository y Number: [id number] [place] [id number] 0 [place], [place] Date:6222-54-82YPSTORY [place], [place] [address]Qjv: [phone] [id number], [place] [phone] (HP) [address]LW: 08/17/2017 MATILDA [facility] MATILDA Angélica [id number] Insurance:ANTHEMPolic TRINEDOB: Community [place] y Number: [id number] [place] [id number] Repository [address]Suy: ([phone]) Date:8115-14-78UZ [phone] (HP) [id number], [place] [address]VK: 08/17/2017 Secondary NOT GIVENUNK Angélica Insurance:SELF PAY [facility] Number: Effective Repository Date:2017-08-17 07/14/2017 [facility] TRINEDOB: Insurance:ANTHEMPolic TRINEDOB: Three Repository [id number] y Number: [id number] [facility] [id number] 0 [place], [place] Date:1917-32-75SZSTORY [place], [place] [address]Ldq: [phone], [place] [phone] () [phone]: 06/14/2017 [facility] TRINEDOB: Insurance:ANTHEMPolic TRINEDOB: Three Repository [id number] y Number: [id number] [place] [id number] 0 [place], [place] Date:0665-13-26JWSTORY [place], [place] [address]Dzs: [phone]) [phone], [place] [phone] () [address]RI:
--- OUTSIDE RECORDS SUMMARY | 2018-06-11 23:42 | XMS RPT_ITS | Summary of Care ---
:1965 Author Organization [facility] Address [address] [place] [address] Care Team Providers Name Role Phone Ritesh Choudhary MD Primary Care Provider Enoc Watts MD Unavailable Reason for Visit Reason Comments Follow-up Encounter Details Date Type Department Care Team Description 02/10/2018 Office Visit [facility] Orthopedic Enoc Watts Partial hamstring & Sports Medicine MD Ned tear, right, Physicians [address] subsequent encounter [address] [place] [address] (Primary Dx) [place] [address] [phone] Allergies Active Allergy Reactions Severity Noted Date Comments Grass Pollen 01/21/2016 Mold 01/21/2016 as of this encounter Medications Prescription Sig. Disp. Refills Start Date End Date Status oxyCODONE-acetaminoph Take 1 tablet by Active en (PERCOCET) 7.5-325 mouth every 8 mg per tablet (eight) hours as needed . polyethylene glycol Take 17 g by mouth 510 g 0 01/27/2016 Active (MIRALAX) 17 daily. gram/dose powder atorvastatin Take 1 (one) 90 tablet 3 06/03/2017 Active (LIPITOR) 10 MG tablet (10 mg tabletIndications: total) by mouth Hyperlipidemia, daily. unspecified hyperlipidemia type ergocalciferol Take 1 (one) 4 capsule 11 06/03/2017 Active (ERGOCALCIFEROL) capsule (50,000 50,000 unit Units total) by capsuleIndications: mouth once a week. Vitamin D deficiency pantoprazole Take 1 (one) 30 tablet 11 06/14/2017 06/14/2018 Active (PROTONIX) 40 MG tablet (40 mg tablet total) by mouth daily. HYDROcodone-acetamino TAKE 1 TABLET BY 0 01/17/2018 Active phen (NORCO) 5-325 mg MOUTH EVERY 6 per tablet HOURS NEEDED FOR PAIN FOR 3 DAYS ibuprofen TAKE 1 TABLET BY 0 01/17/2018 Active (ADVIL,MOTRIN) 600 MG MOUTH EVERY 6 tablet HOURS FOR 3 DAYS docusate sodium TAKE ONE CAPSULE 0 01/17/2018 Active (COLACE) 100 MG BY MOUTH TWICE A capsule DAY FOR 3 DAYS ondansetron TAKE 1 TABLET BY 0 01/17/2018 Active (ZOFRAN-ODT) 4 MG MOUTH SUBLINGUALLY disintegrating tablet EVERY 6 HOURS FOR 3 DAYS as of this encounter Active Problems Problem Noted Date Obesity, Class I, BMI 30-34.9 07/17/2017 Overview: BMI: 33.89: Height 5 foot 6 inches weight 210 pounds. Last Assessment & Plan: Calorie counting is [...] and allow cool down until at least retirement back to the pre exercise hear rate. [...] Not on file as of this encounter Progress Notes Enoc Watts MD - 02/10/2018 5:02 PM EDT Dictation on: 02/10/2018 5:02 PM by: ENOC WATTS [[id number]] in this encounter Plan of Treatment Health Maintenance Due Date Last Done Comments SEQUENTIAL INFLUENZA VACCINE 05/22/2018 06/14/2017 (Declined) Postponed from 01/14/2018 (#1) (Not Indicated) TETANUS EVERY 10 YR 05/16/2019 05/16/2009 COLONOSCOPY 05/16/2025 05/16/2015 as of this encounter Visit Diagnoses Diagnosis Partial hamstring tear, right, subsequent encounter - Primary
== END ==
PROVIDERS: Family Provider Family Medicine; PCP Family Medicine; Referring Provider Anesthesiology Pain Medicine; Visit Provider Anesthesiology Pain Medicine
DX: F11.20 Opioid dependence, uncomplicated (principal)
CPT/HCPCS: 80307

== ENCOUNTER → 2018-09-01 | Outpatient (CLI) | payer BC, SELFPAY ==
--- NOTE | 2018-09-01 07:32 | MRI_ITS ---
STUDY: MRI LUMBAR SPINE WITHOUT CONTRAST REASON FOR EXAM: Male, 53 years old. Lower back pain TECHNIQUE: Standardized fat and water weighted pulse sequences were obtained in the sagittal and axial planes. COMPARISON: None FINDINGS: T12-L1: Normal endplates. Normal disc height, hydration and morphology. Normal bilateral facet joints. Normal central canal and bilateral lateral recesses. Normal bilateral intervertebral neural foramina. Normal lumbar lordosis. There is no substantial scoliosis. Normal conus medullaris that terminates at the L1 level. L1-2: Normal endplates. Normal disc height, hydration and morphology. Normal bilateral facet joints. Normal central canal and bilateral lateral recesses. Normal bilateral intervertebral neural foramina. L2-3: Normal endplates. Normal disc height, hydration and morphology. Normal bilateral facet joints. Normal central canal and bilateral lateral recesses. Normal bilateral intervertebral neural foramina. L3-4: Normal endplates. Normal disc height, hydration and morphology. Normal bilateral facet joints. Normal central canal and bilateral lateral recesses. Normal bilateral intervertebral neural foramina. L4-5: Endplate spondylosis. Decreased disc height. Bilateral pars defect of L4 with 10 mm spondylosis at L4-5. Degenerative changes of the bilateral facet joints. Mild narrowing of the central canal and severe narrowing of the bilateral intervertebral neural foramina. L5-S1: Endplate spondylosis. Decreased disc height and small circumferential disc bulge. Degenerative changes of the bilateral facet joints. Mild narrowing of the central canal and moderate narrowing of the bilateral intervertebral neural foramina. Normal visualized sacral ala. Normal visualized paraspinous soft tissue structures. MRI/Spine Lumbar (Routine) IMPRESSION: L4-5 and L5-S1 degenerative changes, as described above. Chronic bilateral pars defect of L4 with 10 mm spondylolisthesis at L4-5. Electronically Signed: Awais Lam, at 8:13 EDT Tel , Service support ,
== END | disposition home or self-care (01) ==
LOC: MRI 07:16
PROVIDERS: Family Provider Internal Medicine; PCP Internal Medicine; Referring Provider Anesthesiology Pain Medicine; Visit Provider Anesthesiology Pain Medicine
DX: M54.9 Dorsalgia, unspecified (principal); M79.606 Pain in leg, unspecified
CPT/HCPCS: 72148

== ENCOUNTER → 2018-09-26 | Outpatient (CLI) | payer BC, SELFPAY ==
--- NOTE | 2018-09-26 17:39 | RAD_ITS ---
STUDY: X-RAY - LUMBAR SPINE REASON FOR EXAM: Male, 53 years old. Chronic low back pain. TECHNIQUE: Lateral flexion and extension view(s) of the lumbar spine were obtained. COMPARISON: Comparison is made with prior study dated March 08, 2014. FINDINGS: Normal lumbar lordosis. There is no substantial scoliosis. Once again, there is moderate grade 2 anterior listhesis of L4 on L5 with spondylolysis of the pars interarticularis of the L4 vertebrae. There is accentuation of 14 mm of listhesis on the flexion views. Spondylosis at the L4-L5 and L5-S1 levels. Marked degree of disc space narrowing at the L4-L5 level. The soft tissue structures are unremarkable. RAD/L/S Spine Bending Flex/Ext IMPRESSION: Degenerative changes of the spine, as detailed above. Great 2 anterolisthesis of L4 on L5 with accentuation during the flexion views. Electronically Signed: Bossman Cid, at 9:26 EDT , Service support ,
== END | disposition home or self-care (01) ==
LOC: RAD 17:36
PROVIDERS: Family Provider Internal Medicine; PCP Internal Medicine; Referring Provider Anesthesiology Pain Medicine; Visit Provider Anesthesiology Pain Medicine
DX: M54.9 Dorsalgia, unspecified (principal)
CPT/HCPCS: 72120

== ENCOUNTER → 2018-11-21 | Outpatient (CLI) | payer BC, SELFPAY ==
--- NOTE | 2018-11-21 14:11 | RAD_ITS ---
STUDY: X-RAY - LUMBAR SPINE REASON FOR EXAM: Male, 53 years old. Low back pain TECHNIQUE: 1 AP view(s) of the lumbar spine were obtained. COMPARISON: None FINDINGS: Normal lumbar lordosis. There is no substantial scoliosis. There is a normal alignment of the vertebrae. Normal vertebral bodies and endplates. Normal disc space heights. The soft tissue structures are unremarkable. RAD/Spine 1 View Any Level IMPRESSION: Normal limited AP view of the lumbar spine Electronically Signed: Osmin Hayes MD at 14:24 EDT , Service support ,
== END | disposition home or self-care (01) ==
LOC: HPRAD 14:10
PROVIDERS: Family Provider Internal Medicine; PCP Internal Medicine; Referring Provider Orthopaedic Surgery; Visit Provider Orthopaedic Surgery
DX: M54.16 Radiculopathy, lumbar region (principal)
CPT/HCPCS: 72020

== ENCOUNTER → 2019-02-01 16:06 | Outpatient (CLI) | payer BC, SELFPAY ==
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
== END ==
PROVIDERS: Family Provider Internal Medicine; PCP Internal Medicine; Referring Provider Psychiatry & Neurology Neurology; Visit Provider Psychiatry & Neurology Neurology
DX: F07.81 Postconcussional syndrome (principal)
CPT/HCPCS: 70551

== ENCOUNTER → 2019-05-18 17:11 | Outpatient (CLI) | payer BC, SELFPAY ==
[2019-05-18 17:38] LABS: Amphetamine Urine VISTA NEGATIVE (<1000 ng/mL); Barbiturate Urine VISTA NEGATIVE (< 200 ng/mL); Benzodiazepine Urine VISTA NEGATIVE (< 200 ng/mL); Cocaine Urine VISTA NEGATIVE (< 300 ng/mL); Ecstacy Urine VISTA NEGATIVE (< 500 ng/mL); Methadone Urine VISTA NEGATIVE (< 300 ng/mL); PCP Urine VISTA NEGATIVE (< 25 ng/mL); THC Urine VISTA NEGATIVE (< 50 ng/mL); Vista UDS pH Range 5
== END ==
PROVIDERS: Family Provider Internal Medicine; PCP Internal Medicine; Referring Provider Anesthesiology Pain Medicine; Visit Provider Anesthesiology Pain Medicine
DX: F11.20 Opioid dependence, uncomplicated (principal)
CPT/HCPCS: 80307

== ENCOUNTER → 2020-11-24 | Outpatient (CLI) | payer BC, SELFPAY ==
[2020-11-24 17:28] LABS: Amphetamine Urine VISTA NEGATIVE (<1000 ng/mL); Barbiturate Urine VISTA NEGATIVE (< 200 ng/mL); Benzodiazepine Urine VISTA NEGATIVE (< 200 ng/mL); Cocaine Urine VISTA NEGATIVE (< 300 ng/mL); Ecstacy Urine VISTA NEGATIVE (< 500 ng/mL); Methadone Urine VISTA NEGATIVE (< 300 ng/mL); PCP Urine VISTA NEGATIVE (< 25 ng/mL); THC Urine VISTA NEGATIVE (< 50 ng/mL); Vista UDS pH Range 5
== END | disposition home or self-care (01) ==
PROVIDERS: Referring Provider Anesthesiology Pain Medicine; Visit Provider Anesthesiology Pain Medicine
DX: F11.20 Opioid dependence, uncomplicated (principal)
CPT/HCPCS: 80307

== ENCOUNTER → 2021-12-14 | Outpatient (CLI) | payer BC, SELFPAY ==
--- NOTE | 2021-12-14 17:04 | RAD_ITS ---
STUDY: X-RAY - CERVICAL SPINE REASON FOR EXAM: Male, 56 years old. HEADACHES TECHNIQUE: XR Spine Cervical 4 or 5 Views COMPARISON: None FINDINGS: Normal anterior atlantoaxial articulation. The odontoid process is obscured by the overlying hard palate on the open mouth view. Therefore, it is not fully evaluated by plain film. There is straightening of the normal cervical lordosis. There is multi-level endplate spondylosis. There is multi-level degenerative disc disease with multilevel disc space narrowing. There is multi-level osseous foraminal stenosis. The soft tissue structures are unremarkable. RAD/Cerv Spine 2 or 3 Views IMPRESSION: There are degenerative changes as noted above. The odontoid process is obscured by the overlying hard palate on the open mouth view. Therefore, it is not fully evaluated by plain film. Electronically Signed: Kalin Casas MD at 17:15 EDT ,
== END | disposition home or self-care (01) ==
LOC: RAD 17:03
PROVIDERS: PCP Internal Medicine; Referring Provider Anesthesiology Pain Medicine; Visit Provider Anesthesiology Pain Medicine
DX: M54.12 Radiculopathy, cervical region (principal)
CPT/HCPCS: 72040

== ENCOUNTER → 2022-10-25 | Outpatient (CLI) | payer BC, SELFPAY ==
[2022-10-25 19:08] LABS: Amphetamine Urine VISTA NEGATIVE (<1000 ng/mL); Barbiturate Urine VISTA NEGATIVE (< 200 ng/mL); Benzodiazepine Urine VISTA NEGATIVE (< 200 ng/mL); Cocaine Urine VISTA NEGATIVE (< 300 ng/mL); Ecstacy Urine VISTA NEGATIVE (< 500 ng/mL); Methadone Urine VISTA NEGATIVE (< 300 ng/mL); PCP Urine VISTA NEGATIVE (< 25 ng/mL); THC Urine VISTA NEGATIVE (< 50 ng/mL); Vista UDS pH Range 4
== END | disposition home or self-care (01) ==
LOC: LABSPEC 17:07 → LAB 10-26 07:00
PROVIDERS: PCP Internal Medicine; Visit Provider Anesthesiology Pain Medicine
DX: F11.20 Opioid dependence, uncomplicated (principal)
CPT/HCPCS: 80307

== ENCOUNTER → 2024-03-07 | Outpatient (CLI) | payer BC, SELFPAY ==
[2024-03-07 17:41] LABS: Amphetamine Urine VISTA NEGATIVE (<1000 ng/mL); Barbiturate Urine VISTA NEGATIVE (< 200 ng/mL); Benzodiazepine Urine VISTA NEGATIVE (< 200 ng/mL); Cocaine Urine VISTA NEGATIVE (< 300 ng/mL); Ecstacy Urine VISTA NEGATIVE (< 500 ng/mL); Methadone Urine VISTA NEGATIVE (< 300 ng/mL); PCP Urine VISTA NEGATIVE (< 25 ng/mL); THC Urine VISTA NEGATIVE (< 50 ng/mL); Vista UDS pH Range 6
--- OUTSIDE RECORDS SUMMARY | 2024-03-07 19:50 | XMS RPT_ITS | CCD ---
Author Organization [facility] ion [facility] Care Team Providers Care Fmd Teacher Name Role Phone Ritesh Choudhary Unavailable [phone] Unavailable Unavailable Unavailable Enoc Watts Unavailable Page Rodriguez Primary Care Provider Ritesh Choudhary Primary Care Provider Enoc Watts Unavailable Ritesh Choudhary Primary Care Provider Page Rodriguez Unavailable [phone] Unavailable Unavailable Ping, Mr. Kalin Bruce Attending Unavail able Mr. Kalin Feng Referring Unavail able Dr. Page Rodriguez Primary Care Unava ilable Page Rodriguez DO Primary Care Provider Page Rodriguez DO Unavailable [phone] PAGE RODRIGUEZ Primary Care Unavailable PAGE RODRIGUEZ Attending Unavailable KALIN FENG Referring Unavailable PAGE RODRIGUEZ Primary Care Unavailable Enoc Watts MD Unavailable Page Rodriguez DO Primary Care Provider PAGE RODRIGUEZ Primary Care Unavailable RANDAL DUCKWORTH SABETHAN Attending Unavailable PAGE RODRIGUEZ Primary Care Unavailable DONITA, RANDAL SABRY Referring Unavailable DONITA, RANDAL SABRY Admitting Unavailable Allergies Allergy Classification Reported Allergen(s) Allergy Type Date of Onset Reaction(s) Facility (9 sources) Grass pollen; Translations: [GRASS POLLEN] Propensity to adverse reactions to drug 01-21-20 [facility] Work Phone: (9 sources) mold extract; Translations: [MOLD] Propensity to adverse reactions to drug 01-21-20 [facility] Work Phone: (3 sources) Sulfamethoxazole / Trimethoprim; Translations: [SULFAMETHOXAZOLE-TR IMETHOPRIM] Drug Allergy 01-17-20 [facility] 3 Repository Medications Current Medications Medication Drug Class(es) Dates Sig (Normalized) Sig (Original) acetaminophen 325 mg / HYDROcodone bitartrate 5 mg oral tablet (3 sources) Opioid Agonist Start: 01-17-2018 take 1 tablet by mouth every six hours as needed for pain HYDROcodone-acetam inophen (NORCO) 5-325 mg per tablet TAKE 1 TABLET BY MOUTH EVERY 6 HOURS NEEDED FOR PAIN FOR 3 DAYS 0 01/17/2018 Active atorvastatin 10 mg oral tablet (15 sources) HMG-CoA Reductase Inhibitor Start: 06-05-2018 take 1 tablet by mouth once daily atorvastatin (Lipitor) 10 mg tablet Indications: Hyperlipidemia, unspecified TAKE 1 TABLET BY MOUTH EVERY DAY DIRECTED 90 tablet 3 08/04/2022 Active Start: 06-03-2017 take 1 tablet by rogers th once daily atorvastatin (LIPITOR) 10 MG tablet Indications: Hyperlipidemia, unspecified hyperlipidemia type Take 1 (one) tablet (10 mg total) by mouth daily. 90 tablet 3 06/03/2017 Active Start: 10-10-2015 take 1 tablet by rogers th once daily atorvastatin (LIPITOR) 10 MG tablet TAKE 1 TABLET BY MOUTH DAILY 10/10/2015 Active docusate sodium 100 mg oral capsule (3 sources) Start: 01-17-2018 take 1 capsule by mouth twice daily docusate sodium (COLACE) 100 MG capsule TAKE ONE CAPSULE BY MOUTH TWICE A DAY FOR 3 DAYS 0 01/17/2018 Active ergocalciferol 1.25 mg oral capsule (8 sources) Provitamin D2 Compound Start: 05-19-2018 take 1 capsule by mouth every week ergocalciferol (ERGOCALCIFEROL) 50,000 unit capsule Indications: Vitamin D deficiency TAKE 1 (ONE) CAPSULE (50,000 UNITS TOTAL) BY MOUTH ONCE A WEEK. 4 capsule 11 05/19/2018 Active Start: 06-03-2017 take 1 capsule by mo uth every week ergocalciferol (ERGOCALCIFEROL) 50,000 unit capsule Indications: Vitamin D deficiency Take 1 (one) capsule (50,000 Units total) by mouth once a week. 4 capsule 06/03/2017 Active Start: 05-31-2016 take 1 capsule by [facility] every week ergocalciferol (ERGOCALCIFEROL) 50,000 unit capsule Take 1 capsule by mouth once a week. 11 05/31/2016 Active ibuprofen 600 mg oral tablet (3 sources) Nonsteroidal Anti-inflammatory Drug Start: 01-17-2018 take 1 tablet by mouth every six hours ibuprofen (ADVIL,MOTRIN) 600 MG tablet TAKE 1 TABLET BY MOUTH EVERY 6 HOURS FOR 3 DAYS 0 01/17/2018 Active 1 ml ketorolac tromethamine 30 mg/ml cartridge (6 sources) Nonsteroidal Anti-inflammatory Drug, Cyclooxygenase Inhibitor Start: 01-15-2019 ketorolac (TORADOL) injection 30 mg Start: 01-09-2019 ketorolac (TOR ADOL) injection 30 mg Start: 2018 End: 01-09-2019 take 1 tablet by mouth every six hours as needed ketorolac 10 MG Tab Take 1 tablet by mouth every 6 hours as needed. Do not take for more than 5 days. 20 tablet 0 01/09/2019 Active meloxicam 15 mg oral tablet (1 source) Nonsteroidal Anti-inflammatory Drug Start: 01-24-2024 End: 01-23-2025 take 1 tablet by mouth once daily meloxicam (MOBIC) 15 MG tablet Take 1 (one) tablet (15 mg total) by mouth daily . 30 tablet 3 01/24/2024 01/23/2025 Active mupirocin 0.02 mg/mg topical ointment (1 source) RNA Synthetase Inhibitor Antibacterial Start: 09-16-2022 End: 09-23-2022 mupirocin (Bactroban) 2 % ointment Indications: folliculitis , minor bacterial skin infections Apply topically 2 times a day for 7 days. 15 g 1 09/16/2022 09/23/2022 Active pantoprazole 40 mg delayed release oral tablet (14 sources) Proton Pump Inhibitor Start: 06-17-2018 take 1 tablet by mouth once daily pantoprazole (ProtoNix) 40 mg EC tablet Indications: Gastro-esophageal reflux disease without esophagitis TAKE 1 TABLET BY MOUTH EVERY DAY 90 tablet 3 08/04/2022 Active Start: 06-14-2017 End: 06-14-2018 take 1 tablet by mouth once daily pantoprazole (PROTONIX) 40 MG tablet Take 1 (one) tablet (40 mg total) by mouth daily. 30 tablet 11 06/14/2017 06/14/2018 Active polyethylene glycol 3350 13659 mg powder for oral solution (8 sources) Osmotic Laxative Start: 01-27-2016 polyethylene glycol (MIRALAX) 17 gram/dose powder Take 17 g by mouth daily. 510 g 01/27/2016 Active 1000 ml sodium chloride 9 mg/ml injection (4 sources) Start: 01-15-2019 sodium chlorid e 0.9% IV solution Start: 01-15-2019 End: 01-15-2019 sodium chloride 0.9% IV solu tion 1,000 mL Start: 01-09-2019 End: 01-09-2019 sodium chloride 0.9% IV solu tion 1,000 mL Start: 11-19-2018 End: 11-19-2018 sodium chloride 0.9% IV solu tion 1,000 mL tamsulosin hydrochloride 0.4 mg oral capsule (4 sources) alpha-Adrenergic Cody Start: 2018 End: 01-09-2019 take 1 capsule by mouth once daily Tamsulosin HCl 0.4 MG Cap capsule Take 1 capsule by mouth daily. Until stone passed 10 capsule 0 01/09/2019 Active Completed/Discontinued Medications Medication Drug Class(es) Dates Sig (Normalized) Sig (Original) acetaminophen 325 mg / oxyCODONE hydrochloride 7.5 mg oral tablet (17 sources) Opioid Agonist Start: 12-30-2020 take 1 tablet by mouth every four to six hours as needed for pain Percocet 7.5-325 MG Oral Tablet TAKE 1 TABLET EVERY 4 TO 6 HOURS NEEDED FOR PAIN. Quantity: 0 Refills: 0 Ordered: 30-Dec-2020 Kalin Feng PA-C Start : 30-Dec-2020 Active Start: 2018 take 1 tablet by rogers th every six hours as needed for pain oxyCODONE-acetaminophen 5-325 MG Tab per tablet Indications: Calculus of proximal left ureter Take 1 tablet by mouth every 6 hours as needed for Moderate Pain for up to 7 days. 12 tablet 0 2018 Active take 1 tablet by rogers th every eight hours as needed oxyCODONE-acetaminophen (PERCOCET) 7.5-3 25 mg per tablet Take 1 (one) tablet by mouth every 8 (eight) hours as needed . Active take 1 tablet by rogers th once oxyCODONE-acetaminophen (PERCOCET) 7.5-3 25 mg per tablet Take 1 tablet by mouth. Active azithromycin 250 mg oral tablet (7 sources) Macrolide Antimicrobial Start: 04-21-2022 take 7 tablets by mouth once Azithromycin 250 MG Oral Tablet TAKE DIRECTED PER PACKAGE INSTRUCTIONS. Quantity: 6 Refills: 0 Ordered: 21-Apr-2022 Kalin Feng PA-C Start : 21-Apr-2022 Active Start: 12-30-2020 End: 04-21-2022 Azithromycin 250 MG Oral Tab let TAKE DIRECTED PER PACKAGE INSTRUCTIONS. Quantity: 6 Refills: 0 Ordered: 30-Dec-2020 Kalin Feng PA-C Start : 30-Dec-2020 End : 21-Apr-2022 Complete bacitracin 0.5 unt/mg topica l ointment (1 source) Start: 11-19-2018 End: 11-19-2018 bacitracin ointment 1 Application Start: 11-19-2018 End: 11-19-2018 bacitracin ointment 1 Applic ation brompheniramine maleate 0.4 mg/ml / dextromethorphan hydrobromide 2 mg/ml / pseudoephedrine hydrochloride 6 mg/ml oral solution (6 sources) alpha-Adrenergic Agonist, Uncompetitive G-oimfel-V-aspartate Receptor Antagonist, Sigma-1 Agonist Start: 12-30-2020 End: 04-21-2022 take 5-10 mL by mouth every four to six hours as needed for cough Pvpuhvryv-Czimjopx-RL 30-2-10 MG/5ML Oral Syrup take 5-10 mL po q4-6 hrs prn cough Quantity: 200 Refills: 0 Ordered: 30-Dec-2020 Kalin Feng PA-C Start : 30-Dec-2020 End : 21-Apr-2022 Complete Bupivacaine (2 sources) Amide Local Anesthetic Start: 01-24-2024 End: 01-24-2024 BUPivacaine HCl (MARCAINE) 0.5 % (5 mg/mL) injection 1 mL Start: 01-24-2024 End: 01-24-2024 1 mL, Injection, Once, On 01/24/24 at 1615, For 1 dose 24 hr buPROPion hydrochloride 300 mg extended release oral tablet (4 sources) Aminoketone Start: 07-14-2017 End: 07-14-2018 take 1 tablet by mouth once daily buPROPion (WELLBUTRIN XL) 300 MG 24 hr tablet Take 1 (one) tablet (300 mg total) by mouth daily. 30 tablet 11 07/14/2017 01/17/2018 Discontinued Start: 06-30-2017 End: 07-14-2017 take 1 tablet by mouth every twelve hours at bedtime buPROPion (WELLBUTRIN SR) 150 MG 12 hr tablet Indications: Depression, unspecified depression type Take 1 (one) tablet (150 mg total) by mouth at bedtime. 30 tablet 0 06/30/2017 07/14/2017 Discontinued citalopram 20 mg oral tablet (2 sources) Serotonin Reuptake Inhibitor Start: 06-14-2017 End: 07-14-2017 take 1 tablet by mouth once daily citalopram (CELEXA) 20 MG tablet Take 1 (one) tablet (20 mg total) by mouth daily. 30 tablet 11 06/14/2017 07/14/2017 Discontinued cyclobenzaprine hydrochloride 10 mg oral tablet (2 sources) Muscle Relaxant Start: 05-31-2016 End: 06-14-2017 take 1 tablet by mouth once daily cyclobenzaprine (FLEXERIL) 10 MG tablet Take 10 mg by mouth daily. 2 05/31/2016 06/14/2017 Discontinued 1 ml diphenhydrAMINE hydrochloride 50 mg/ml cartridge (1 source) Histamine-1 Receptor Antagonist Start: 11-19-2018 End: 11-19-2018 diphenhydrAMINE (BENADRYL) injection 25 mg Start: 11-19-2018 End: 11-19-2018 diphenhydrAMINE (BENADRYL) i njection 25 mg 1 ml HYDROmorphone hydrochloride 1 mg/ml cartridge (3 sources) Opioid Agonist Start: 01-15-2019 End: 01-15-2019 HYDROmorphone (DILAUDID) injection 0.5 mg Start: 01-15-2019 End: 01-15-2019 HYDROmorphone (DILAUDID) inj ection 0.5 mg Start: 01-09-2019 End: 01-09-2019 HYDROmorphone (DILAUDID) inj ection 1 mg 2 ml metoclopramide 5 mg/ml prefilled syringe (1 source) Dopamine-2 Receptor Antagonist Start: 11-19-2018 End: 11-19-2018 metoclopramide (REGLAN) injection 10 mg Start: 11-19-2018 End: 11-19-2018 metoclopramide (REGLAN) inje ction 10 mg 1 ml morphine sulfate 4 mg/ml cartridge (3 sources) Opioid Agonist Start: 01-15-2019 End: 01-15-2019 Morphine Sulfate (PF) injection 4 mg Start: 01-09-2019 End: 01-09-2019 Morphine Sulfate (PF) inject ion 4 mg Start: 01-09-2019 End: 01-09-2019 Morphine Sulfate (PF) inject ion 4 mg 2 ml ondansetron 2 mg/ml injection (14 sources) Serotonin-3 Receptor Antagonist Start: 01-15-2019 End: 01-15-2019 ondansetron 4mg/2ml (ZOFRAN) injection 4 mg Start: 01-09-2019 End: 01-09-2019 ondansetron 4mg/2ml (ZOFRAN) injection 4 mg Start: 11-19-2018 End: 11-19-2018 ondansetron 4mg/2ml (ZOFRAN) injection 4 mg Start: 11-19-2018 End: 11-19-2018 ondansetron 4mg/2ml (ZOFRAN) injection 4 mg Start: 11-19-2018 take 1 tablet by rogers th every eight hours as needed ondansetron 4 MG Tab tablet Take 1 tablet by mouth every 8 hours as needed for Nausea / Vomiting or Nausea for up to 8 doses. 8 tablet 0 11/19/2018 Active Start: 2018 ondansetron (Z OFRAN-ODT) disintegrating tablet 1 Each Start: 01-17-2018 take 1 tablet by rogers th every six hours ondansetron (ZOFRAN-ODT) 4 MG disintegrating tablet TAKE 1 TABLET BY MOUTH SUBLINGUALLY EVERY 6 HOURS FOR 3 DAYS 0 01/17/2018 Active predniSONE 10 mg oral tablet (7 sources) Start: 04-21-2022 take 1 tablet by mouth twice daily predniSONE 10 MG Oral Tablet Take 1 tablet twice daily Quantity: 10 Refills: 0 Ordered: 21-Apr-2022 Kalin Feng PA-C Start : 21-Apr-2022 Active Start: 12-30-2020 End: 04-21-2022 predniSONE 10 MG Oral Tablet TAKE 3 TABLETS DAILY FOR 2 DAYS, 2 TABLETS DAILY FOR 2 DAYS AND 1 TABLET DAILY FOR 2 DAYS, THEN STOP. Quantity: 12 Refills: 0 Ordered: 30-Dec-2020 Kalin Feng PA-C Start : 30-Dec-2020 End : 21-Apr-2022 Complete 1 ml triamcinolone acetonide 40 mg/ml injection (2 sources) Corticosteroid Start: 01-24-2024 End: 01-24-2024 triamcinolone acetonide (KENALOG-40) injection 40 mg Start: 01-24-2024 End: 01-24-2024 40 mg, Injection, Once, On T ue 01/24/24 at 1615, For 1 dose Problems Active Problems Problem Classification Problem Date Documented Da te Episodic/Chronic Calculus of urinary tract (1 source) Kidney stone; Translations: [Kidney stone] Episodic Disorders of lipid metabolism (17 sources) Hyperlipidemia; Translations: [Mixed hyperlipidemia] Onset: 6 05-13-2016 Chronic Esophageal disorders (16 sources) Gastroesophageal reflux disease; Translations: [Esophageal reflux] Onset: 8 06-14-2017 Chronic Malaise and fatigue (2 sources) Chronic fatigue, unspecified; Translations: [Chronic fatigue, unspecified] Onset: 4 Chronic Malaise and fatigue (6 sources) Fatigue; Translations: [Other malaise and fatigue] Episodic Miscellaneous mental health disorders (6 sources) Male erectile disorder; Translations: [Erectile disorder, generalized, mild] Chronic Mood disorders (2 sources) Acute depression; Translations: [Depression, acute] Onset: 8 06-14-2017 Chronic Other acquired deformities (1 source) Equinus contracture of the ankle; Translations: [Contracture, unspecified ankle] 01-24-2024 Chronic Other acquired deformities (2 sources) Contracture, unspecified ankle; Translations: [Contracture, unspecified ankle] Onset: 4 Chronic Other connective tissue disease (6 sources) H/O: osteoarthritis; Translations: [Personal history of other musculoskeletal disorders] Episodic Other connective tissue disease (1 source) Plantar fasciitis of left foot; Translations: [Plantar fascial fibromatosis] 01-24-2024 Episodic Other connective tissue disease (1 source) Pain in left foot; Translations: [Pain in left foot] 01-24-2024 Episodic Other connective tissue disease (2 sources) Plantar fascial fibromatosis; Translations: [Plantar fascial fibromatosis] Onset: 4 Episodic Other connective tissue disease (2 sources) Pain in left foot; Translations: [Pain in left foot] Onset: 4 Episodic Other gastrointestinal disorders (6 sources) History of gastroesophageal reflux disease; Translations: [Personal history of other diseases of digestive system] Episodic Other infections; including parasitic (4 sources) Late effects of other and unspecified infectious and parasitic diseases; 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 Other injuries and conditions due to external causes (1 source) Hamstring injury Episodic Other lower respiratory disease (2 sources) Cough; 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] Episodic Other male genital disorders (2 sources) Male erectile dysfunction, unspecified; Translations: [Male erectile dysfunction, unspecified] Onset: 4 Chronic Other nutritional; endocrine; and metabolic disorders (6 sources) Obesity, unspecified; Translations: [Obese class I] Onset: 8 07-17-2017 Chronic Other nutritional; endocrine; and metabolic disorders (6 sources) H/O: obesity; Translations: [Personal history of other endocrine, metabolic, and immunity disorders] Episodic Other nutritional; endocrine; and metabolic disorders (6 sources) History of hypercholesterolemia; Translations: [Personal history of other endocrine, metabolic, and immunity disorders] Episodic Other nutritional; endocrine; and metabolic disorders (6 sources) History of nutritional deficiency; Translations: [Personal history of nutritional deficiency] Episodic Other screening for suspected conditions (not mental disorders or infectious disease) (8 sources) Patient encounter status; Translations: [Screening for lipoid disorders] Onset: 4 Episodic Other skin disorders (6 sources) Skin tag; Translations: [Unspecified hypertrophic and atrophic conditions of skin] Episodic Other skin disorders (6 sources) Skin lesion; Translations: [Unspecified disorder of skin and subcutaneous tissue] Episodic Other skin disorders (2 sources) Folliculitis; Translations: [Follicular disorder, unspecified] Onset: 3 09-16-2022 Episodic Spondylosis; intervertebral disc disorders; other back problems (4 sources) Intervertebral disc disorder; 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] Onset: 6 05-13-2016 Chronic Sprains and strains (1 source) Strain of hamstring muscle Episodic Unclassified (5 sources) Major depressive disorder, single episode, unspecified; Translations: [Depression, acute] Onset: 8 06-14-2017 Unclassified (2 sources) Obesity, Class I, BMI 30-34.9; Translations: [Obesity, Class I, BMI 30-34.9] Onset: 8 03-19-2018 Past or Other Problems Problem Classification Problem Date Documented Da te Episodic/Chronic Intracranial injury (1 source) Concussion with no loss of consciousness; Translations: [Concussion without loss of consciousness, initial encounter] Episodic Other upper respiratory infections (8 sources) Upper respiratory infection; Translations: [Acute upper respiratory infections of unspecified site] Onset: 07-14-2017 07-14-2017 Episodic Spondylosis; intervertebral disc disorders; other back problems (4 sources) Disorder of lumbar disc; Translations: [Lumbar disc disease] Onset: 05-16-2015 05-13-2016 Episodic Results Test Name Value Interpretation Reference Range Facility XR FOOT LEFT 3+ VIEWS (STAND BERNABE)on 01-24-2024 XR FOOT LEFT 3+ VIEWS (STANDARD) No acute fractures or dislocations noted. Joint spaces are within normal limits. Plantar calcaneal enthesophyte noted. Dictated by: RANDAL DUCKWORTH on TueJan 27, 2024 6:35:54 AM EDT Transcribed by: RANDAL DUCKWORTH on TueJan 27, 2024 6:35:54 AM EDT Finalized by: RANDAL DUCKWORTH on TueJan 27, 2024 6:35:54 AM EDT Normal [facility] Comment on above: Order Comment: Injur y/Trauma or Illness?:Illness/Other How long have you had these symptoms (acute/chronic)?:Chronic Reason for exam?:pain History of cancer?:no Surgeries, chemotherapy, or radiation?:no Type of Exam?:Initial Additional signs and symptoms?:no Basic metabolic 2000 panelon 03-18-2023 Anion gap [Moles/Vol] 10 mmol/L Normal 10-20 [facility] Comment on above: Performed By: #### 2 4321-2 #### CARL VALDES ([id number]) [facility] ([facility]) [address] [place] [address] [id number] Calcium [Mass/Vol] 9.1 mg/dL Normal 8.6-10.3 [facility] Comment on above: Performed By: #### 2 4321-2 #### CARL VALDES ([id number]) [facility] ([facility]) [address] [place] [address] 10290 Chloride [Moles/Vol] 107 mmol/L Normal 98-107 [facility] Comment on above: Performed By: #### 2 4321-2 #### CARL VALDES ([id number]) [facility] ([facility]) [address] [place] [address] 36810 CO2 [Moles/Vol] 28 mmol/L Normal 21-32 [facility] Comment on above: Performed By: #### 2 4321-2 #### CARL VALDES ([id number]) [facility] ([facility]) [address] [place] [address] 87831 Creatinine [Mass/Vol] 0.99 mg/dL Normal 0.50-1.30 [facility] Comment on above: Performed By: #### 2 4321-2 #### CARL VALDES (75977) [facility] ([facility]) [address] [place] [address] 77195 GFR/1.73 sq M.predicted MDRD (S/P/Bld) [Vol rate/Area] 89 mL/min/1.73m*2 Normal >60 [facility] Comment on above: Result Comment: Calc ulations of estimated GFR are performed using the 2020 CKD-EPI Study Refit equation without the race variable for the IDMS-Traceable creatinine methods. https://jasn.asnjournals.org/content//ASN.540902576 8 Performed By: #### 2 4321-2 #### CARL VALDES ([id number]) [facility] ([facility]) [address] [place] [address] 59561 Glucose [Mass/Vol] 103 mg/dL High 74-99 [facility] Comment on above: Performed By: #### 2 4321-2 #### CARL VLADES (18005) [facility] ([facility]) [address] [place] [address] 99232 Potassium [Moles/Vol] 4.3 mmol/L Normal 3.5-5.3 [facility] Comment on above: Performed By: #### 2 4321-2 #### CARL VALDES (97633) [facility] ([facility]) [address] [place] [address] 47452 Sodium [Moles/Vol] 141 mmol/L Normal 136-145 [facility] Comment on above: Performed By: #### 2 4321-2 #### CARL VALDES ([id number]) [facility] ([facility]) [address] [place] [address] 45421 Urea nitrogen [Mass/Vol] 15 mg/dL Normal 6-23 [facility] Comment on above: Performed By: #### 2 4321-2 #### CARL VALDES ([id number]) [facility] ([facility]) [address] [place] [address] 73850 CBC panel Auto (Bld)on 03-18 Erythrocyte distribution width (RBC) [Ratio] 12.1 % Normal 11.5-14.5 [facility] Comment on above: Performed By: #### 5 8410-2 #### CARL VALDES ([id number]) [facility] ([facility]) [address] [place] [address] 13447 Hematocrit (Bld) [Volume fraction] 46.3 % Normal 41.0-52.0 [facility] Comment on above: Performed By: #### 5 8410-2 #### CARL VALDES ([id number]) [facility] ([facility]) [address] [place] [address] 02932 Hemoglobin (Bld) [Mass/Vol] 15.6 g/dL Normal 13.5-17.5 [facility] Comment on above: Performed By: #### 5 8410-2 #### CARL VALDES ([id number]) [facility] ([facility]) [address] [place] [address] MCH (RBC) [Entitic mass] 29.6 pg Normal 26.0-34.0 [facility] Comment on above: Performed By: #### 5 8410-2 #### CARL VALDES (63834) [facility] ([facility]) [address] [place] [address] 90701 MCHC (RBC) [Mass/Vol] 33.7 g/dL Normal 32.0-36.0 [facility] Comment on above: Performed By: #### 5 8410-2 #### CARL VALDES ([id number]) [facility] ([facility]) [address] [place] [address] MCV (RBC) [Entitic vol] 88 fL Normal 80-100 [facility] Comment on above: Performed By: #### 5 8410-2 #### CARL VALDES ([id number]) [facility] ([facility]) [address] [place] [address] 55569 Nucleated RBC/100 WBC (Bld) [Ratio] 0.0 /100 WBCs Normal 0.0-0.0 [facility] Comment on above: Performed By: #### 5 8410-2 #### CARL VALDES ([id number]) [facility] ([facility]) [address] [place] [address] 37287 Platelets (Bld) [#/Vol] 194 x10*3/uL Normal 150-450 [facility] Comment on above: Performed By: #### 5 8410-2 #### CARL VALDES ([id number]) [facility] ([facility]) [address] [place] [address] 43479 RBC (Bld) [#/Vol] 5.27 x10*6/uL Normal 4.50-5.90 [facility] Comment on above: Performed By: #### 5 8410-2 #### CARL VALDES ([id number]) [facility] ([facility]) [address] [place] [address] WBC (Bld) [#/Vol] 9.2 x10*3/uL Normal 4.4-11.3 [facility] Comment on above: Performed By: #### 5 8410-2 #### CARL VALDES ([id number]) [facility] ([facility]) [facility] [place] [address] HbA1c (Bld) [Mass fraction]o n 03-18-2023 Average glucose Estimated from glycated hemoglobin (Bld) [Mass/Vol] 111 mg/dL Normal Not Established [facility] Comment on above: Order Comment: Diagn osis of Diabetes-Adults Non-Diabetic: < or = 5.6% Increased risk for developing diabetes: 5.7-6.4% Diagnostic of diabetes: > or = 6.5% Monitoring of Diabetes Age (y)....................... Therapeutic Goal (%) Adults: >18.........................<7.0 Pediatrics: 13-18...................<7.5 Pediatrics: 7-12....................<8.0 Pediatrics: 0-6..................... 7.5-8.5 [place] [employer]. Diabetes Care 33(S1), May 2009 Performed By: #### 4 548-4 #### CARL VALDES ([id number]) [facility] ([facility]) [facility] [place] [address] Hemoglobin A1c/Hemoglobin.to ronan 03-18-2023 HbA1c (Bld) [Mass fraction] 5.5 % Normal see below [facility] Comment on above: Order Comment: Diagn osis of Diabetes-Adults Non-Diabetic: < or = 5.6% Increased risk for developing diabetes: 5.7-6.4% Diagnostic of diabetes: > or = 6.5% Monitoring of Diabetes Age (y)....................... Therapeutic Goal (%) Adults: >18.........................<7.0 Pediatrics: 13-18...................<7.5 Pediatrics: 7-12....................<8.0 Pediatrics: 0-6..................... 7.5-8.5 [place] [employer]. Diabetes Care 33(S1), May 2009 Performed By: #### 4 548-4 #### CARL VALDES ([id number]) [facility] ([facility]) [address] [place] [address] Hepatic function 2000 panelo n 03-18-2023 Albumin BCP dye [Mass/Vol] 4.3 g/dL Normal 3.4-5.0 [facility] Comment on above: Performed By: #### 2 4325-3 #### CARL VALDES ([id number]) [facility] ([facility]) [address] [place] [address] ALP [Catalytic activity/Vol] 56 U/L Normal 33-120 [facility] Comment on above: Performed By: #### 2 4325-3 #### CARL VALDES ([id number]) [facility] ([facility]) [address] [place] [address] ALT With P-5'-P [Catalytic activity/Vol] 17 U/L Normal 10-52 [facility] Comment on above: Result Comment: June ents treated with Sulfasalazine may generate falsely decreased results for ALT. Performed By: #### 2 4325-3 #### CARL VALDES ([id number]) [facility] ([facility]) [address] [place] [address] AST With P-5'-P [Catalytic activity/Vol] 14 U/L Normal 9-39 [facility] Comment on above: Performed By: #### 2 4325-3 #### CARL VALDES ([id number]) [facility] ([facility]) [address] [place] [address] Bilirubin [Mass/Vol] 0.8 mg/dL Normal 0.0-1.2 [facility] Comment on above: Performed By: #### 2 4325-3 #### CARL VALDES ([id number]) [facility] ([facility]) [address] [place] [address] Bilirubin.direct [Mass/Vol] 0.1 mg/dL Normal 0.0-0.3 [facility] Comment on above: Performed By: #### 2 4325-3 #### CARL VALDES ([id number]) [facility] ([facility]) [address] [place] [address] Protein [Mass/Vol] 6.4 g/dL Normal 6.4-8.2 [facility] Comment on above: Performed By: #### 2 4325-3 #### CARL VALDES ([id number]) [facility] ([facility]) [address] [place] [address] Lipid 1996 panelon 3 Cholesterol [Mass/Vol] 194 mg/dL Normal 0-199 [facility] Comment on above: Result Comment: Age Desirable Borderline High High 0-19 Y 0 - 169 170 - 199 >/= 200 20-24 Y 0 - 189 190 - 224 >/= 225 >24 Y 0 - 199 200 - 239 >/= 240 All ranges are based on fasting samples. Specific therapeutic targets will vary based on patient-specific cardiac risk. Pediatric guidelines reference:Pediatrics 2011, 128(S5).Adult guidelines reference: NCEP ATPIII Guidelines,SHAVON 2001, 258:2486-97 Venipuncture immediately after or during the administration of Metamizole may lead to falsely low results. Testing should be performed immediately prior to Metamizole dosing. Performed By: #### 2 4331-1 #### CARL VALDES ([id number]) [facility] ([facility]) [address] [place] [address] Cholesterol in HDL [Mass/Vol] 48.0 mg/dL Normal [facility] Comment on above: Result Comment: Age Very Low Low Normal High 0-19 Y < 35 < 40 40-45 ---- 20-24 Y ---- < 40 >45 ---- >24 Y ---- < 40 40-60 >60 Performed By: #### 2 4331-1 #### CARL VALDES ([id number]) [facility] ([facility]) [facility] [place] [address] Cholesterol in LDL [Mass/Vol] 124 mg/dL High <=99 [facility] Comment on above: Result Comment: Near Borderline AGE Desirable Optimal High High Very High 0-19 Y 0 - 109 --- 110-129 >/= 130 ---- 20-24 Y 0 - 119 --- 120-159 >/= 160 ---- >24 Y 0 - 99 100-129 130-159 160-189 >/=190 Performed By: #### 2 4331-1 #### CARL VALDES ([id number]) [facility] ([facility]) [address] [place] [address] Cholesterol in VLDL [Mass/Vol] 22 mg/dL Normal 0-40 [facility] Comment on above: Performed By: #### 2 4331-1 #### CARL VALDES ([id number]) [facility] ([facility]) [address] [place] [address] CHOLESTEROL/HDL RATIO 4.0 Normal [facility] Comment on above: Result Comment: Ref Values Desirable < 3.4 High Risk > 5.0 Performed By: #### 2 4331-1 #### CARL VALDES ([id number]) [facility] ([facility]) [facility] [place] [address] NON HDL CHOLESTEROL 146 mg/dL Normal 0-149 [facility] Comment on above: Result Comment: Age Desirable Borderline High High Very High 0-19 Y 0 - 119 120 - 144 >/= 145 >/= 160 20-24 Y 0 - 149 150 - 189 >/= 190 ---- >24 Y 30 mg/dL above LDL Cholesterol goal Performed By: #### 2 4331-1 #### CARL VALDES ([id number]) [facility] ([facility]) [address] [place] [address] Triglyceride [Mass/Vol] 111 mg/dL Normal 0-149 [facility] Comment on above: Result Comment: Age Desirable Borderline High High Very High 0 D-90 D 19 - 174 ---- ---- ---- 91 D- 9 Y 0 - 74 75 - 99 >/= 100 ---- 10-19 Y 0 - 89 90 - 129 >/= 130 ---- 20-24 Y 0 - 114 115 - 149 >/= 150 ---- >24 Y 0 - 149 150 - 199 200- 499 >/= 500 Venipuncture immediately after or during the administration of Metamizole may lead to falsely low results. Testing should be performed immediately prior to Metamizole dosing. Performed By: #### 2 4331-1 #### CARL VALDES ([id number]) [facility] ([facility]) [address] [place] [address] Prostate specific Agon 03-18 Prostate specific Ag [Mass/Vol] 0.80 ng/mL Normal <=4.00 [facility] Comment on above: Order Comment: The DA requires that the method used for PSA assay be reported to the physician. Values obtained with different assay methods must not be used interchangeably. This test was performed at [facility] using the [employer] PSA assay is a two-site immunoenzymatic sandwich assay. The assay is approved for measurement of prostate-specific antigen (PSA)in serum and may be used in conjunction with a digital rectal examination in men 50 years and older as an aid in detection of prostate cancer. 8-Kqhgh-xmxqcjdrl inhibitors (e.g. Proscar, Finasteride, Avodart, Dutasteride and Miri) for the treatment of BPH have been shown to lower PSA levels by an average of 50% after 6 months of treatment. Performed By: #### 2 857-1 #### CARL VALDES ([id number]) [facility] ([facility]) [address] [place], [place] [id number] TSH WITH REFLEX TO FREE T4 I F ABNORMALon 03-18-2023 TSH Qn 2.29 m[IU]/L Normal 0.44-3.98 [facility] Comment on above: Order Comment: TSH t esting is performed using different testing methodology at [facility] than at other [facility]. Direct result comparisons should only be made within the same method. Performed By: #### T JESSICA #### HENRY LUCIO ([id number]) [facility] ([facility]) [address] [place] [address] Office Visit (Internal Medic ine)on 04-21-2022 Follow-up visit Diagnoses/Problems Assessed URI (upper respiratory infection) (465.9) (J06.9) Orders URI (upper respiratory infection) Start: Azithromycin 250 MG Oral Tablet (Zithromax); TAKE DIRECTED PER PACKAGE INSTRUCTIONS Rx By: Kalin Feng; Dispense: 0 Days ; #:6 Tablet; Refill: 0;For: URI (upper respiratory infection); TEX = N; Sent To: [id number] Start: predniSONE 10 MG Oral Tablet; Take 1 tablet twice daily Rx By: Kalin Feng; Dispense: 5 Days ; #:10 Tablet; Refill: 0;For: URI (upper respiratory infection); TEX = N; Sent To: [facility] Patient Discussion/Summary Upper respiratory infection: Z-Parth and medium prednisone. DayQuil and NyQuil for symptoms. Rest and supportive care otherwise. Follow-up as needed Chief Complaint Patient here today to be seen for cough, head AND chest congestion, LAW top of head, body aches and chills, loss of appetite and sinus drainage x 3 days. Patient tested negative for Covid with home kit yesterday. History of Present IllnessPresents for evaluation of URI. Symptoms including cough, congestion, body aches, malaise, and headache have been present for several days and refractory to OTC meds. No fever, chills, nausea, vomiting, abdominal pain, CP, or SOB. No exacerbating factors. Patient tested negative for COVID at home. Review of Systems Constitutional: as noted in HPI. ENT: as noted in HPI. Cardiovascular: as noted in HPI. Respiratory: as noted in HPI. 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,U09.9) Screening for lipid disorders (V77.91) (Z13.220) Skin lesion (709.9) (L98.9) Skin tag, acquired (701.9) (L91.8) Past Medical History Problems History of Erectile disorder, generalized, mild (302.72) (F52.21) History of degenerative disc disease (V13.59) (Z87.39) History of gastroesophageal reflux (GERD) (V12.79) (Z87.19) History of hypercholesterolemia (V12.29) (Z86.39) History of obesity (V12.29) (Z86.39) History of vitamin D deficiency (V12.1) (Z86.39) Surgical History Problems No history of surgery Family History Other Family history of diabetes mellitus (V18.0) (Z83.3) Family history of hypertension (V17.49) (Z82.49) Family history of malignant neoplasm (V16.9) (Z80.9) Family history of myocardial infarction (V17.3) (Z82.49) Social History Problems Daily caffeine consumption, 1 serving a day No illicit drug use Non-smoker (V49.89) (Z78.9) Social alcohol use (V49.89) (Z78.9) Allergies Medication No Known Drug Allergies Recorded By: Kiesha Cordero; 06/12/2020 9:01:28 AM Current Meds Medication NameInstruction Atorvastatin Calcium 10 MG Oral TabletTAKE 1 TABLET BY MOUTH EVERY DAY DIRECTED Pantoprazole Sodium 40 MG Oral Tablet Delayed ReleaseTAKE 1 TABLET BY MOUTH EVERY DAY Percocet 7.5-325 MG Oral TabletTAKE 1 TABLET EVERY 4 TO 6 HOURS NEEDED FOR PAIN. Vitals Vital Signs Recorded: [id number] 09:02AM Jkbeabmyizi11.6 F Heart Vkeh457 Zfzdnhco068 Cawdgffai49 Height5 ft 7 in Vnsoqy117 lb 1.6 oz BMI Ijcwgfvicm41.22 kg/m2 BSA Calculated2.07 Tobacco Useb) No PHQ-2 #1. Over the last 2 weeks have you felt down, depressed or hopeless? (If yes, answer PHQ-9 below)No Falls Screening (Age 18+)a) No falls within the last year O2 Yrfohyxbmx24, RA Physical Exam Constitutional General appearance: Alert and in no acute distress. Eyes Inspection of eyes: Sclera and conjunctiva were normal. Ears, Nose, Mouth, and Throat Ears: Auricles: Normal. Otoscopic examination: Tympanic membranes: Normal with no congestion and no discharge. Otic Canals: Normal without tenderness, congestion or discharge. Oropharynx: Normal with moist mucus membranes, no congestion. Tonsils: Normal no follicles. Pulmonary Respiratory assessment: No respiratory distress, normal respiratory rhythm and effort. Auscultation of Lungs: Clear bilateral breath sounds. Cardiovascular Auscultation of heart: Apical pulse normal, heart rate and rhythm normal, normal S1 and S2, no murmurs and no pericardial rub. Lymphatic Palpation of lymph nodes in neck: No cervical lymphadenopathy. Musculoskeletal Examination of gait: Normal. Skin Skin inspection: Normal skin color and pigmentation, normal skin turgor and no visible rash. Neurologic Cranial nerves: Nerves 2-12 were intact, no focal neuro defects. Psychiatric Orientation: Oriented to person, place, and time. 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 COMPARISON: 03/03/2013 ACCESSION NUMBER(S): [id number] ORDERING CLINICIAN: ANGELA ROSAS FINDINGS: C-spine, multiple views There is no fracture. There is no spondylolisthesis. Mild osteophytosis and sclerosis lower cervical spine without disc spaces. Mild neural foramina narrowing in the lower cervical spine as well. 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 COMPARISON: 03/03/2013 ACCESSION NUMBER(S): [id number] ORDERING CLINICIAN: ANGELA ROSAS FINDINGS: Lumbar spine, five views There is no fracture. There is moderate anterolisthesis of L4 on L5 with severe spondylosis at this level including disc space narrowing osteophytosis. There is bilateral spondylolysis at L4. There is mild spondylosis at L5-S1 IMPRESSION: Moderate anterolisthesis of L4 on L5 with bilateral spondylolysis at L4. Electronically signed by: AUSTIN RICKS MD [facility] No Panel Informationon 12-30 [facility] Work Phone: Tobacco Screening.on 021 Fall risk assessment a) No falls within the last year [facility] Work Phone: Tobacco use status CPHS b) No [facility] Work Phone: CBC AND DIFFERENTIALon 08-06 Basophils (Bld) [#/Vol] 0.00 10*3/uL Normal 0.00 - 0.10 [facility] Comment on above: Performed By: #### C BCDF #### [address] [address] Basophils/100 WBC (Bld) 0.4 % Normal 0.0 - 2.0 [facility] Comment on above: Performed By: #### C BCDF #### [address] [address] Eosinophils (Bld) [#/Vol] 0.10 10*3/uL Normal 0.00 - 0.70 [facility] Comment on above: Performed By: #### C BCDF #### [address] [address] Eosinophils/100 WBC (Bld) 2.2 % Normal 0.0 - 6.0 [facility] Comment on above: Performed By: #### C BCDF #### [address] [address] Erythrocyte distribution width (RBC) [Ratio] 13.2 % Normal 11.5 - 14.5 [facility] Comment on above: Performed By: #### C BCDF #### [address] [address] Hematocrit (Bld) [Volume fraction] 46.4 % Normal 41.0 - 52.0 [facility] Comment on above: Performed By: #### C BCDF #### [address] [address] Hemoglobin (Bld) [Mass/Vol] 15.3 g/dL Normal 13.5 - 17.5 [facility] Comment on above: Performed By: #### C BCDF #### [address] [address] Lymphocytes (Bld) [#/Vol] 1.80 10*3/uL Normal 1.20 - 4.80 [facility] Comment on above: Performed By: #### C BCDF #### [address] [address] Lymphocytes/100 WBC (Bld) 31.7 % Normal 13.0 - 44.0 [facility] Comment on above: Performed By: #### C BCDF #### [address] [address] MCHC (RBC) [Mass/Vol] 33.0 g/dL Normal 32.0 - 36.0 [facility] Comment on above: Performed By: #### C BCDF #### [address] [address] MCV (RBC) [Entitic vol] 89 fL Normal 80 - 100 [facility] Comment on above: Performed By: #### C BCDF #### [address] [place] [address] Monocytes (Bld) [#/Vol] 0.60 10*3/uL Normal 0.10 - 1.00 [facility] Comment on above: Performed By: #### C BCDF #### [address] [address] Monocytes/100 WBC (Bld) 10.5 % Normal 2.0 - 10.0 [facility] Comment on above: Performed By: #### C BCDF #### [address] [address] Neutrophils (Bld) [#/Vol] 3.10 10*3/uL Normal 1.20 - 7.70 [facility] Comment on above: Result Comment: Perc ent differential counts (%) should be interpreted in the context of the absolute cell counts (cells/L). Performed By: #### C BCDF #### [address] [address] Neutrophils/100 WBC (Bld) 55.2 % Normal 40.0 - 80.0 [facility] Comment on above: Performed By: #### C BCDF #### [address] [address] NUCLEATED RBC 0.2 /100 WBC Normal [facility] Comment on above: Performed By: #### C BCDF #### [address] [address] Platelets (Bld) [#/Vol] 185 10*3/uL Normal 150 - 450 [facility] Comment on above: Performed By: #### C BCDF #### [address] [address] RBC 5.20 x10E12/L Normal 4.50 - 5.90 [facility] Comment on above: Performed By: #### C BCDF #### [address] [address] WBC (Bld) [#/Vol] 5.6 10*3/uL Normal 4.4 - 11.3 [facility] Comment on above: Performed By: #### C BCDF #### [address] [address] COMPREHENSIVE PANELon 2020 Albumin [Mass/Vol] 4.2 g/dL Normal 3.4 - 5.0 [facility] Comment on above: Performed By: #### C MP #### [address] [address] ALP [Catalytic activity/Vol] 45 U/L Normal 33 - 120 [facility] Comment on above: Performed By: #### C MP #### [address] [address] ALT [Catalytic activity/Vol] 25 U/L Normal 10 - 52 [facility] Comment on above: Result Comment: June ents treated with Sulfasalazine may generate falsely decreased results for ALT. Performed By: #### C MP #### [address] [address] Anion gap [Moles/Vol] 10 mmol/L Normal 10 - 20 [facility] Comment on above: Performed By: #### C MP #### [address] [address] AST [Catalytic activity/Vol] 20 U/L Normal 9 - 39 [facility] Comment on above: Performed By: #### C MP #### [address] [address] Bilirubin [Mass/Vol] 0.7 mg/dL Normal 0.0 - 1.2 [facility] Comment on above: Performed By: #### C MP #### [address] [address] Calcium [Mass/Vol] 9.2 mg/dL Normal 8.6 - 10.3 [facility] Comment on above: Performed By: #### C MP #### [address] [address] Chloride [Moles/Vol] 107 mmol/L Normal 98 - 107 [facility] Comment on above: Performed By: #### C MP #### [address] [address] Creatinine [Mass/Vol] 1.08 mg/dL Normal 0.50 - 1.30 [facility] Comment on above: Performed By: #### C MP #### [address] [address] GFR- AM. >60 Normal >60 [facility] Comment on above: Result Comment: CALC ULATIONS OF ESTIMATED GFR ARE PERFORMED USING THE MDRD STUDY EQUATION FOR THE IDMS-TRACEABLE CREATININE METHODS. CLIN CHEM 2007;53:766-72 Performed By: #### C MP #### [address] [address] GFR-NON AM. >60 Normal >60 [facility] Comment on above: Performed By: #### C MP #### [address] [address] Glucose [Mass/Vol] 107 mg/dL High 74 - 99 [facility] Comment on above: Performed By: #### C MP #### [address] [address] HCO3 (Bld) [Moles/Vol] 29 mmol/L Normal 21 - 32 [facility] Comment on above: Performed By: #### C MP #### [address] [address] Potassium [Moles/Vol] 4.2 mmol/L Normal 3.5 - 5.3 [facility] Comment on above: Performed By: #### C MP #### [address] [address] Protein [Mass/Vol] 6.6 g/dL Normal 6.4 - 8.2 [facility] Comment on above: Performed By: #### C MP #### [address] [address] Sodium [Moles/Vol] 142 mmol/L Normal 136 - 145 [facility] Comment on above: Performed By: #### C MP #### [address] [address] Urea nitrogen [Mass/Vol] 14 mg/dL Normal 6 - 23 [facility] Comment on above: Performed By: #### C MP #### [address] [address] LIPID PANEL (CORONARY RISK 2 )on 08-06-2020 Cholesterol [Mass/Vol] 188 mg/dL Normal 0 - 199 [facility] Comment on above: Result Comment: . AGE DESIRABLE BORDERLINE HIGH HIGH 0-19 Y 0 - 169 170 - 199 >/= 200 20-24 Y 0 - 189 190 - 224 >/= 225 >24 Y 0 - 199 200 - 239 >/= 240 All ranges are based on fasting samples. Specific therapeutic targets will vary based on patient-specific cardiac risk. . Pediatric guidelines reference:Pediatrics 2011, 128(S5). Adult guidelines reference: NCEP ATPIII Guidelines, SHAVON 2001, 258:2486-97 . Venipuncture immediately after or during the administration of Metamizole may lead to falsely low results. Testing should be performed immediately prior to Metamizole dosing. Performed By: #### L IPID #### [address] [address] Cholesterol in HDL [Mass/Vol] 43.0 mg/dL Normal [facility] Comment on above: Result Comment: . AGE VERY LOW LOW NORMAL HIGH 0-19 Y < 35 < 40 40-45 ---- 20-24 Y ---- < 40 >45 ---- >24 Y ---- < 40 40-60 >60 . Performed By: #### L IPID #### [address] [address] Cholesterol in LDL [Mass/Vol] 119 mg/dL High 0 - 99 [facility] Comment on above: Result Comment: . NEAR BORD AGE DESIRABLE OPTIMAL HIGH HIGH VERY HIGH 0-19 Y 0 - 109 --- 110-129 >/= 130 ---- 20-24 Y 0 - 119 --- 120-159 >/= 160 ---- >24 Y 0 - 99 100-129 130-159 160-189 >/=190 . Performed By: #### L IPID #### [address] [address] Cholesterol in VLDL [Mass/Vol] 26 mg/dL Normal 0 - 40 [facility] Comment on above: Performed By: #### L IPID #### [address] [place] [address] Cholesterol.total/ Cholesterol in HDL [Mass ratio] 4.4 {ratio} Normal [facility] Comment on above: Result Comment: REF VALUES DESIRABLE < 3.4 HIGH RISK > 5.0 Performed By: #### L IPID #### [address] [address] Triglyceride [Mass/Vol] 130 mg/dL Normal 0 - 149 [facility] Comment on above: Result Comment: . AGE DESIRABLE BORDERLINE HIGH HIGH VERY HIGH 0 D-90 D 19 - 174 ---- ---- ---- 91 D- 9 Y 0 - 74 75 - 99 >/= 100 ---- 10-19 Y 0 - 89 90 - 129 >/= 130 ---- 20-24 Y 0 - 114 115 - 149 >/= 150 ---- >24 Y 0 - 149 150 - 199 200- 499 >/= 500 . Venipuncture immediately after or during the administration of Metamizole may lead to falsely low results. Testing should be performed immediately prior to Metamizole dosing. Performed By: #### L IPID #### [address] [address] TESTOSTERONEon 08-06-2020 Testosterone [Mass/Vol] 409 ng/dL Normal 240 - 1000 [facility] Comment on above: Result Comment: Nand rolone decanoate, 11 Beta- hydroxytestosterone, androstenedione, testosterone propionate and 96-oiju-vianmupuwczw strongly cross react with this test method. Biotin interference may cause falsely elevated results. Patients taking a Biotin dose of up to 5 mg/day should refrain from taking Biotin for 24 hours before sample collection. Providers may contact their local laboratory for further information. Performed By: #### T EST #### [facility] [address] [place] [address] TSH WITH REFLEX TO FREE T4 I F ABNORMALon 08-06-2020 TSH Qn 1.50 m[IU]/L Normal 0.44 - 3.98 [facility] Comment on above: Result Comment: TSH testing is performed using different testing methodology at [facility] than at other [facility]. Direct result comparisons should only be made within the same method. Performed By: #### T HYDS #### [facility] [address] [place] [address] CBCon 01-15-2019 ABSOLUTE BAS 0.0 10*3/uL Normal 0.0-0.2 [facility] Comment on above: Performed By: #### A CBC, CMPF #### Testing performed at [address] [address] ABSOLUTE EOS 0.00 10*3/uL Normal 0.0-0.7 [facility] Comment on above: Performed By: #### A CBC, CMPF #### Testing performed at [address] [address] ABSOLUTE NEUTROPHIL COUNT 6.2 10*3/uL Normal 1.4-6.5 [facility] Comment on above: Performed By: #### A CBC, CMPF #### Testing performed at [address] [address] Basophils/100 WBC (Bld) 0.5 % Normal 0.0-2.0 [facility] Comment on above: Performed By: #### A CBC, CMPF #### Testing performed at [address] [address] DTYPE AUTO DIFF Normal [facility] Comment on above: Performed By: #### A CBC, CMPF #### Testing performed at [address] [address] Eosinophils/100 WBC (Bld) 0.6 % Normal 0.0-11.0 [facility] Comment on above: Performed By: #### A CBC, CMPF #### Testing performed at [address] [address] Lymphocytes (Bld) [#/Vol] 1.00 10*3/uL Low 1.2-3.4 [facility] Comment on above: Performed By: #### A CBC, CMPF #### Testing performed at [address] [address] Lymphocytes/100 WBC (Bld) 12.7 % Low 20.0-55.0 [facility] Comment on above: Performed By: #### A CBC, CMPF #### Testing performed at [address] [place] [address] Monocytes (Bld) [#/Vol] 0.6 10*3/uL Normal 0.0-0.7 [facility] Comment on above: Performed By: #### A CBC, CMPF #### Testing performed at [address] [address] Monocytes/100 WBC (Bld) 7.5 % Normal 0.0-10.0 [facility] Comment on above: Performed By: #### A CBC, CMPF #### Testing performed at [address] [address] Neutrophils/100 WBC (Bld) 78.7 % High 37.0-75.0 [facility] Comment on above: Performed By: #### A CBC, CMPF #### Testing performed at [address] [address] Erythrocyte distribution width (RBC) [Ratio] 14.1 % Normal 11.5-14.5 [facility] Comment on above: Performed By: #### A CBC, CMPF #### Testing performed at [address] [address] Hematocrit (Bld) [Volume fraction] 43.0 % Normal 42.0-52.0 [facility] Comment on above: Performed By: #### A CBC, CMPF #### Testing performed at [address] [address] Hemoglobin (Bld) [Mass/Vol] 15.2 g/dL Normal 14.0-18.0 [facility] Comment on above: Performed By: #### A CBC, CMPF #### Testing performed at [address] [address] MCH (RBC) [Entitic mass] 30.8 pg Normal 26.0-35.0 [facility] Comment on above: Performed By: #### A CBC, CMPF #### Testing performed at [address] [address] MCHC (RBC) [Mass/Vol] 35.3 g/dL Normal 27.0-37.0 [facility] Comment on above: Performed By: #### A CBC, CMPF #### Testing performed at [address] [address] MCV (RBC) [Entitic vol] 87.4 fL Normal 80.0-100.0 [facility] Comment on above: Performed By: #### A CBC, CMPF #### Testing performed at [address] [address] Platelet mean volume (Bld) [Entitic vol] 7.3 fL Low 7.4-11.0 [facility] Comment on above: Performed By: #### A CBC, CMPF #### Testing performed at [address] [address] Platelets (Bld) [#/Vol] 183 10*3/uL Normal 130.0-400.0 [facility] Comment on above: Performed By: #### A CBC, CMPF #### Testing performed at [address] [address] RBC (Bld) [#/Vol] 4.93 10*6/uL Normal 4.0-6.1 [facility] Comment on above: Performed By: #### A CBC, CMPF #### Testing performed at [address] [address] WBC (Bld) [#/Vol] 7.9 10*3/uL Normal 3.6-11.0 [facility] Comment on above: Performed By: #### A CBC, CMPF #### Testing performed at [address] [address] CBC, EDIF, PLATELETon 2018 ABSOLUTE BASOPHIL COUNT 0.0 10*3/uL 0 - 0.2 10*3/uL [facility] [place] Basophils/100 WBC (Bld) 0.5 % 0 - 2 % [facility] [place] Differential cell count method Nom (Bld) AUTO DIFF % [facility] [place] Eosinophils (Bld) [#/Vol] 0.00 10*3/uL 0 - 0.7 10*3/uL [facility] [place] Eosinophils/100 WBC (Bld) 0.6 % 0 - 11 % [employer] [place] Erythrocyte distribution width (RBC) [Ratio] 14.1 % 11.5 - 14.5 % [facility] Hematocrit (Bld) [Volume fraction] 43.0 % 42 - 52 % [facility] Hemoglobin (Bld) [Mass/Vol] 15.2 g/dL [facility] Lymphocytes (Bld) [#/Vol] 1.00 10*3/uL Low 1.2 - 3.4 10*3/uL [facility] Lymphocytes/100 WBC (Bld) 12.7 % Low 20 - 55 % [facility] MCH (RBC) [Entitic mass] 30.8 pg 26 - 35 PG [facility] MCHC (RBC) [Mass/Vol] 35.3 g/dL [facility] MCV (RBC) [Entitic vol] 87.4 fL [facility] Monocytes (Bld) [#/Vol] 0.6 10*3/uL 0 - 0.7 10*3/uL [facility] Monocytes/100 WBC (Bld) 7.5 % 0 - 10 % [facility] Neutrophils (Bld) [#/Vol] 6.2 10*3/uL 1.4 - 6.5 10*3/uL [facility] Neutrophils/100 WBC (Bld) 78.7 % High 37 - 75 % [facility] Platelet mean volume (Bld) [Entitic vol] 7.3 fL Low [facility] Platelets (Bld) [#/Vol] 183 10*3/uL 130 - 400 10*3/uL [facility] RBC (Bld) [#/Vol] 4.93 10*6/uL 4 - 6.1 10*6/uL [facility] WBC (Bld) [#/Vol] 7.9 10*3/uL 3.6 - 11 10*3/uL [facility] CHEM 7 FASTINGon 01-15-2019 Creatinine [Mass/Vol] 1.68 mg/dL High 0.66-1.25 [facility] Comment on above: Performed By: #### A CBC, CMPF #### Testing performed at [address] [address] EST. GFR, 56 ml/min/1.73sq.m [facility] Comment on above: Performed By: #### A CBC, CMPF #### Testing performed at [address] [address] EST. GFR,Non 46 ml/min/1.73sq.m [facility] Comment on above: Performed By: #### A CBC, CMPF #### Testing performed at [address] [address] GFR/1.73 sq M predicted among non-blacks MDRD (S/P/Bld) [Vol rate/Area] Average GFR for 50-59 years old = 93. Normal [facility] Comment on above: Result Comment: Senior Security Analyst blu Kidney disease, GFR = <60. Kidney failure, GFR = <15. The GFR estimate is not adjusted for extreme body surface area or acute process, nor has it been validated for women or ethnic groups other than and . Performed By: #### A CBC, CMPF #### Testing performed at [address] [address] Urea nitrogen [Mass/Vol] 18 mg/dL Normal 7-20 [facility] Comment on above: Performed By: #### A CBC, CMPF #### Testing performed at [address] [address] Chloride [Moles/Vol] 104 mmol/L Normal 98-107 [facility] Comment on above: Performed By: #### A CBC, CMPF #### Testing performed at [address] [address] CO2 [Moles/Vol] 23 mmol/L Normal 22-30 [facility] Comment on above: Performed By: #### A CBC, CMPF #### Testing performed at [address] [address] Glucose [Mass/Vol] 140 mg/dL High 70-100 [facility] Comment on above: Result Comment: NORMAL <100 mg/dL PREDIABETES 101-126 mg/dL DIABETES 126 mg/dL or higher Performed By: #### A CBC, CMPF #### Testing performed at [address] [address] Potassium [Moles/Vol] 4.1 mmol/L Normal 3.5-5.1 [facility] Comment on above: Performed By: #### A CBC, CMPF #### Testing performed at [address] [address] Sodium [Moles/Vol] 138 mmol/L Normal 136-145 [facility] Comment on above: Performed By: #### A CBC, CMPF #### Testing performed at [facility] [address] [place] [address] CHEM 7 (LYTES,BUN,CREA,GLUC) on 01-15-2019 Chloride [Moles/Vol] 104 mmol/L [facility] CO2 [Moles/Vol] 23 mmol/L [facility] Creatinine [Mass/Vol] 1.68 mg/dL High [facility] GFR/1.73 sq M predicted among blacks MDRD (S/P/Bld) [Vol rate/Area] 56 mL/min/{1.73_m2} ml/min/1.73sq. m [facility] GFR/1.73 sq M predicted among non-blacks MDRD (S/P/Bld) [Vol rate/Area] 46 mL/min/{1.73_m2} ml/min/1.73sq. m [facility] GFR/1.73 sq M predicted among non-blacks MDRD (S/P/Bld) [Vol rate/Area] Average GFR for 50-59 years old = 93. [facility] Comment on above: Chronic Kidney disea se, GFR = <60. Kidney failure, GFR = <15. The GFR estimate is not adjusted for extreme body surface area or acute process, nor has it been validated for women or ethnic groups other than and . Glucose post fast [Mass/Vol] 140 mg/dL High [facility] Comment on above: NORMAL <100 mg/dL PREDIABETES 101-126 mg/dL DIABETES 126 mg/dL or higher Potassium [Moles/Vol] 4.1 mmol/L [facility] Sodium [Moles/Vol] 138 mmol/L [facility] Urea nitrogen [Mass/Vol] 18 mg/dL [facility] CT ABDOMEN/PELVIS WITHOUT CO NTRASTon 01-15-2019 CT ABDOMEN/PELVIS WITHOUT CONTRAST EXAMINATION: CT ABDOMEN/PELVIS WITHOUT CONTRAST HISTORY: Persistent abdominal pain. Known obstructing stone. COMPARISON: Renal stone CT 01/09/2019 and 2018. TECHNIQUE: Unenhanced helical imaging of the abdomen and pelvis is performed. Multiplanar reconstructions are submitted. Dose reduction techniques were achieved by using: automated exposure control and/or adjustment of mA and /or kV according to patient size and/or use of iterative reconstruction technique. FINDINGS: ABDOMEN: The imaged lung bases are clear. The spleen, adrenals, pancreas, gallbladder and biliary ducts are within normal limits. Liver morphology and attenuation are within normal limits also. Right hydronephrosis and proximal hydroureter is present secondary to an obstructing right mid ureteric stone which measures 0.5 x 0.6 cm (image 85, series 2). This stone has a density of 759 Hounsfield units. This stone migrated distally approximately 2 cm since the patient's prior study. Left nonobstructing midpole 0.4 x 0.7 cm renal stone is stable. A right inferior pole renal calculus is seen in slightly different position than on patient's prior study measuring 0.4 cm. PELVIS: The distal ureters, urinary bladder, prostate, seminal vesicles, rectosigmoid colon, distal small bowel loops and appendix are normal. Trace pelvic free fluid is seen posteriorly. There is no fluid collection. There are no distal urinary tract calculi. No adenopathy is present. No acute osseous abnormality is seen. IMPRESSION: 1. Slight distal migration of previously seen right mid ureteric obstructing stone measuring 0.5 x 0.6 cm with a density of 759 Hounsfield units. Stone remains at least 13 cm above the right UVJ. 2. Bilateral nonobstructing renal calculi as discussed above. Right-sided inferior pole renal stone is in a slightly different position than on the patient's prior exam. No other ureteric stones are present. 3. No other acute abdominal or pelvic abnormality. 4. No adenopathy and normal appendix. Normal [facility] Otheron 01-15-2019 Interpretation and review of laboratory results Abnormal [facility] URINALYSIS, MACROon 01-16-20 19 Bilirubin Ql (U) Negative NEGATIVE [facility] Clarity (U) CLEAR CLEAR [facility] Color (U) YELLOW YELLOW [facility] [place] Glucose Test strip (U) [Mass/Vol] Negative NEGATIVE mg/dl [facility] [place] Hemoglobin Ql (U) MODERATE Abnormal NEGATIVE [facility]ALT Interpretation and review of laboratory results Abnormal [facility] Ketones (U) [Mass/Vol] Negative NEGATIVE mg/dl [facility] Leukocyte esterase Test strip Ql (U) Negative NEGATIVE [facility] Nitrite Ql (U) Negative NEGATIVE [facility] TH pH (U) 6.0 [pH] [facility] Protein Ql (U) Negative NEGATIVE mg/dl [facility] Specific gravity (U) [Rel density] 1.020 [facility] Urobilinogen (U) [Mass/Vol] 0.2 [facility] URINE CULTUREon 01-15-2019 Bacteria identified Cx Nom (U) SPECIMEN DESCRIPTION URINE CLEAN CATCH UA DIPSTICK LEUKOCYTE NEGATIVE * Result Note: NITRITE NEGATIVE * CULTURE NO GROWTH 2 DAYS * Result Note: Testing performed at [place] [address] * REPORT STATUS 01/17/2019 * Result Note: FINAL * Normal [facility] Comment on above: Performed By: #### U MAC, UMIC #### Testing performed at [address] [address] URINE MACROSCOPICon 01-16-20 19 Bilirubin Ql (U) Negative Normal NEGATIVE [facility] Comment on above: Performed By: #### A CBC, CMPF #### Testing performed at [address] [address] Clarity (U) CLEAR Normal CLEAR [facility] Comment on above: Performed By: #### A CBC, CMPF #### Testing performed at [address] [place] [address] Color (U) YELLOW Normal YELLOW [facility] Comment on above: Performed By: #### A CBC, CMPF #### Testing performed at [address] [address] Glucose Ql (U) Negative Normal NEGATIVE [facility] Comment on above: Performed By: #### A CBC, CMPF #### Testing performed at [address] [address] pH (U) 6.0 [pH] Normal 5.0-7.0 [facility] Comment on above: Performed By: #### A CBC, CMPF #### Testing performed at [address] [address] Protein (U) [Mass/Vol] Negative Normal NEGATIVE [facility] Comment on above: Performed By: #### A CBC, CMPF #### Testing performed at [address] [address] URINE HEMOGLOBIN MODERATE Abnormal NEGATIVE [facility] Comment on above: Performed By: #### A CBC, CMPF #### Testing performed at [address] [place] [address] URINE KETONE Negative Normal NEGATIVE [facility] Comment on above: Performed By: #### A CBC, CMPF #### Testing performed at [address] [place] [address] URINE LEUKOTEST Negative Normal NEGATIVE [facility] Comment on above: Performed By: #### A CBC, CMPF #### Testing performed at [address] [address] URINE NITRATES Negative Normal NEGATIVE [facility] Comment on above: Performed By: #### A CBC, CMPF #### Testing performed at [address] [address] URINE SPEC GRAVITY 1.020 Normal 1.010-1.025 [facility] Comment on above: Performed By: #### A CBC, CMPF #### Testing performed at [address] [address] Urobilinogen Qn (U) 0.2 {Katty'U}/dL Normal 0.2-1.0 [facility] Comment on above: Performed By: #### A CBC, CMPF #### Testing performed at [address] [address] URINE MICROSCOPICon 01-16-20 19 Bacteria LM.HPF (Urine sed) [#/Area] Negative Normal NEGATIVE [facility] Comment on above: Performed By: #### A CBC, CMPF #### Testing performed at [address] [address] Casts LM.LPF (Urine sed) [#/Area] NONE Normal [facility] Comment on above: Performed By: #### A CBC, CMPF #### Testing performed at [address] [address] CRYSTAL NONE Normal [facility] Comment on above: Performed By: #### A CBC, CMPF #### Testing performed at [address] [address] Epithelial cells LM.HPF (Urine sed) [#/Area] NONE Normal [facility] Comment on above: Performed By: #### A CBC, CMPF #### Testing performed at [address] [address] Mucus Ql (Urine sed) Negative Normal NEGATIVE [facility] Comment on above: Performed By: #### A CBC, CMPF #### Testing performed at [address] [address] RBC (U) [#/Vol] 1 TO 5 Normal NEGATIVE [facility] Comment on above: Performed By: #### A CBC, CMPF #### Testing performed at [address] [address] URINE COMMENT REFLEX CULTURE PER ESTABLISHED CRITERIA. Normal [facility] Comment on above: Performed By: #### A CBC, CMPF #### Testing performed at [address] [address] WBC (U) [#/Vol] Negative Normal NEGATIVE [facility] Comment on above: Performed By: #### A CBC, CMPF #### Testing performed at [address] [address] Bacteria LM.HPF (Urine sed) [#/Area] Negative NEGATIVE [facility] Casts LM.LPF (Urine sed) [#/Area] NONE NONE /LPF [facility] Crystals LM Nom (Urine sed) NONE NONE [facility] Epithelial cells LM Ql (Urine sed) NONE /HPF [facility] Mucus Ql (Urine sed) Negative NEGATIVE [facility] RBC LM.HPF (Urine sed) [#/Area] 1 TO 5 NEGATIVE /HPF [facility] Urine sediment comments LM Oliverio (Urine sed) REFLEX CULTURE PER ESTABLISHED CRITERIA. [facility] WBC LM.HPF (Urine sed) [#/Area] Negative NEGATIVE /HPF [facility] UA Completeon 01-14-2019 Color (U) Yellow Normal Yellow [facility] Comment on above: Performed By: #### 8 [id number] #### [place] Urinalysis Automated Subsection [facility] [place] [address] Glucose (U) [Mass/Vol] Negative Normal Negative [facility] Comment on above: Performed By: #### 8 [id number] #### [place] Urinalysis Automated Subsection [facility] [place] [address] Ketones Ql (U) Negative Normal Negative [facility] Comment on above: Performed By: #### [id number] #### [place] Urinalysis Automated Subsection [address] [place] [address] RBC (U) [#/Vol] /uL Abnormal 0-3 [facility] Comment on above: Performed By: #### 8 [id number] #### [place] Urinalysis Automated Subsection [address] [place] [address] UA Blood 3+ Normal Negative [facility] Comment on above: Performed By: #### 8 [id number] #### [place] Urinalysis Automated Subsection [address] [place] [address] UA Clarity Clear Normal Clear [facility] Comment on above: Performed By: #### [id number] #### [place] Urinalysis Automated Subsection [facility] [place] [address] UA Leuk Est Negative Normal Negative [facility] Comment on above: Performed By: #### 8 [id number] #### [place] Urinalysis Automated Subsection [facility] [place] [address] UA Mucous Trace Abnormal Trace [facility] Comment on above: Performed By: #### 8 [id number] #### [place] Urinalysis Automated Subsection [facility] [place] [address] UA Nitrite Negative Normal Negative [facility] Comment on above: Performed By: #### 8 [id number] #### [place] Urinalysis Automated Subsection [facility] [place] [address] UA pH 5.0 Normal 4.6-8.0 [facility] Comment on above: Performed By: #### 8 [id number] #### [place] Urinalysis Automated Subsection [facility] [place] [address] UA Protein Negative Normal Negative [facility] Comment on above: Performed By: #### 8 [id number] #### [place] Urinalysis Automated Subsection [facility] [place] [address] UA Spec Grav 1.021 Normal 1.003-1.030 [facility] Comment on above: Performed By: #### 8 [id number] #### [place] Urinalysis Automated Subsection [facility] [place] [address] UA Urobilinogen 2.0 mg/dL Abnormal [facility] Comment on above: Result Comment: Due to a manufacturing issue, low positive urobilinogen results may be fasely positive. Correlate with urine bilirubin and additional clinical/laboratory findings to assess the risk of hemolytic anemia or liver disease. If clinically indicated, repeat testing with an alternate method is available by contacting the laboratory within 24 hours. Performed By: #### 8 [id number] #### [place] Urinalysis Automated Subsection [address] [place] [address] UA WBC 0-5 Normal 0-5 [facility] Comment on above: Performed By: #### 8 [id number] #### [place] Urinalysis Automated Subsection [facility] [place] [address] Urobilinogen Qn (U) Negative Normal Negative [facility] Comment on above: Performed By: #### 8 [id number] #### [place] Urinalysis Automated Subsection [facility] [place] [address] XR Abdomen 1 Viewon 01-15-20 XR Abdomen 1 View Exam Date/Time: 01/13/2019 22:42 EDT Reason for Exam: Kidney stone Report STUDY: XR Abdomen 1 View; 01/13/2019 10:42 pm INDICATION: Kidney stone. COMPARISON: None. ACCESSION NUMBER(S): [id number] ORDERING CLINICIAN: Fritz Fermin FINDINGS: No dilated bowel. Moderate colonic stool burden. 4 mm calcification overlying the right L4 transverse process. Limited evaluation for calculi in the kidneys due to overlying bowel contents. Limited evaluation of pneumoperitoneum on supine imaging, however no gross evidence of free air is noted. Osseous structures demonstrate no acute bony changes. IMPRESSION: 1. 4 mm calculus overlying the right L4 transverse process could be a ureteral calculus or phlebolith. 2. Nonobstructive bowel gas pattern. Moderate colonic stool burden. FINAL REPORT Dictated: 01/14/2019 4:27 am Deonna Murphy MD Signed (Electronic Signature): 01/14/2019 4:27 am Signed by: Deonna Murphy MD Technologist: [facility] Normal [facility] CBCon 01-09-2019 ABSOLUTE BAS 0.0 10*3/uL Normal 0.0-0.2 [facility] Comment on above: Performed By: #### A CBC, CMPF #### Testing performed at [address] [place] [address] ABSOLUTE EOS 0.10 10*3/uL Normal 0.0-0.7 [facility] Comment on above: Performed By: #### A CBC, CMPF #### Testing performed at [address] [place] [address] ABSOLUTE NEUTROPHIL COUNT 5.2 10*3/uL Normal 1.4-6.5 [facility] Comment on above: Performed By: #### A CBC, CMPF #### Testing performed at [address] [place] [address] Basophils/100 WBC (Bld) 0.3 % Normal 0.0-2.0 [facility] Comment on above: Performed By: #### A CBC, CMPF #### Testing performed at [address] [place] [address] DTYPE AUTO DIFF Normal [facility] Comment on above: Performed By: #### A CBC, CMPF #### Testing performed at [address] [address] Eosinophils/100 WBC (Bld) 0.9 % Normal 0.0-11.0 [facility] Comment on above: Performed By: #### A CBC, CMPF #### Testing performed at [address] [address] Lymphocytes (Bld) [#/Vol] 2.70 10*3/uL Normal 1.2-3.4 [facility] Comment on above: Performed By: #### A CBC, CMPF #### Testing performed at [address] [address] Lymphocytes/100 WBC (Bld) 29.9 % Normal 20.0-55.0 [facility] Comment on above: Performed By: #### A CBC, CMPF #### Testing performed at [address] [address] Monocytes (Bld) [#/Vol] 0.9 10*3/uL High 0.0-0.7 [facility] Comment on above: Performed By: #### A CBC, CMPF #### Testing performed at [address] [place] [address] Monocytes/100 WBC (Bld) 10.2 % High 0.0-10.0 [facility] Comment on above: Performed By: #### A CBC, CMPF #### Testing performed at [address] [place] [address] Neutrophils/100 WBC (Bld) 58.7 % Normal 37.0-75.0 [facility] Comment on above: Performed By: #### A CBC, CMPF #### Testing performed at [address] [place] [address] Erythrocyte distribution width (RBC) [Ratio] 14.3 % Normal 11.5-14.5 [facility] Comment on above: Performed By: #### A CBC, CMPF #### Testing performed at [address] [place] [address] Hematocrit (Bld) [Volume fraction] 45.5 % Normal 42.0-52.0 [facility] Comment on above: Performed By: #### A CBC, CMPF #### Testing performed at [address] [place] [address] Hemoglobin (Bld) [Mass/Vol] 15.9 g/dL Normal 14.0-18.0 [facility] Comment on above: Performed By: #### A CBC, CMPF #### Testing performed at [address] [place] [address] MCH (RBC) [Entitic mass] 30.1 pg Normal 26.0-35.0 [facility] Comment on above: Performed By: #### A CBC, CMPF #### Testing performed at [address] [place] [address] MCHC (RBC) [Mass/Vol] 35.0 g/dL Normal 27.0-37.0 [facility] Comment on above: Performed By: #### A CBC, CMPF #### Testing performed at [address] [place] [address] MCV (RBC) [Entitic vol] 86.0 fL Normal 80.0-100.0 [facility] Comment on above: Performed By: #### A CBC, CMPF #### Testing performed at [address] [address] Platelet mean volume (Bld) [Entitic vol] 7.6 fL Normal 7.4-11.0 [facility] Comment on above: Performed By: #### A CBC, CMPF #### Testing performed at [address] [address] Platelets (Bld) [#/Vol] 219 10*3/uL Normal 130.0-400.0 [facility] Comment on above: Performed By: #### A CBC, CMPF #### Testing performed at [address] [address] RBC (Bld) [#/Vol] 5.30 10*6/uL Normal 4.0-6.1 [facility] Comment on above: Performed By: #### A CBC, CMPF #### Testing performed at [address] [address] WBC (Bld) [#/Vol] 8.9 10*3/uL Normal 3.6-11.0 [facility] Comment on above: Performed By: #### A CBC, CMPF #### Testing performed at [address] [address] CBC, EDIF, PLATELETon 2018 ABSOLUTE BASOPHIL COUNT 0.0 10*3/uL 0 - 0.2 10*3/uL [facility] Basophils/100 WBC (Bld) 0.3 % 0 - 2 % [facility] Differential cell count method Nom (Bld) AUTO DIFF % [facility] Eosinophils (Bld) [#/Vol] 0.10 10*3/uL 0 - 0.7 10*3/uL [facility] Eosinophils/100 WBC (Bld) 0.9 % 0 - 11 % [facility] Erythrocyte distribution width (RBC) [Ratio] 14.3 % 11.5 - 14.5 % [facility] Hematocrit (Bld) [Volume fraction] 45.5 % 42 - 52 % [facility] Hemoglobin (Bld) [Mass/Vol] 15.9 g/dL [facility] [place] Lymphocytes (Bld) [#/Vol] 2.70 10*3/uL 1.2 - 3.4 10*3/uL [facility] Lymphocytes/100 WBC (Bld) 29.9 % 20 - 55 % [facility] MCH (RBC) [Entitic mass] 30.1 pg 26 - 35 PG [facility] MCHC (RBC) [Mass/Vol] 35.0 g/dL [facility] [place] MCV (RBC) [Entitic vol] 86.0 fL [facility] Monocytes (Bld) [#/Vol] 0.9 10*3/uL High 0 - 0.7 10*3/uL [facility] Monocytes/100 WBC (Bld) 10.2 % High 0 - 10 % [facility] Neutrophils (Bld) [#/Vol] 5.2 10*3/uL 1.4 - 6.5 10*3/uL [facility] Neutrophils/100 WBC (Bld) 58.7 % 37 - 75 % [facility] Platelet mean volume (Bld) [Entitic vol] 7.6 fL [facility] Platelets (Bld) [#/Vol] 219 10*3/uL 130 - 400 10*3/uL [facility] RBC (Bld) [#/Vol] 5.30 10*6/uL 4 - 6.1 10*6/uL [facility] WBC (Bld) [#/Vol] 8.9 10*3/uL 3.6 - 11 10*3/uL [facility] CHEM 7 FASTINGon 01-09-2019 Creatinine [Mass/Vol] 1.08 mg/dL Normal 0.66-1.25 [facility] Comment on above: Performed By: #### A CBC, CMPF #### [place] [address] EST. GFR, >60 Normal [facility] Comment on above: Performed By: #### A CBC, CMPF #### [place] [address] EST. GFR,Non >60 Normal [facility] Comment on above: Performed By: #### A CBC, CMPF #### [place] [address] GFR/1.73 sq M predicted among non-blacks MDRD (S/P/Bld) [Vol rate/Area] Average GFR for 50-59 years old = 93. Normal [facility] Comment on above: Result Comment: Senior Security Analyst blu Kidney disease, GFR = <60. Kidney failure, GFR = <15. The GFR estimate is not adjusted for extreme body surface area or acute process, nor has it been validated for women or ethnic groups other than and . Performed By: #### A CBC CMPF #### Testing performed at [address] [address] Urea nitrogen [Mass/Vol] 28 mg/dL High 7-20 [facility] Comment on above: Performed By: #### A CBC, CMPF #### Testing performed at [address] [address] Chloride [Moles/Vol] 110 mmol/L High 98-107 [facility] Comment on above: Performed By: #### A CBC CMPF #### Testing performed at [address] [address] CO2 [Moles/Vol] 19 mmol/L Low 22-30 [facility] Comment on above: Performed By: #### A CBC CMPF #### Testing performed at [address] [address] Glucose [Mass/Vol] 125 mg/dL High 70-100 [facility] Comment on above: Result Comment: NORMAL <100 mg/dL PREDIABETES 101-126 mg/dL DIABETES 126 mg/dL or higher Performed By: #### A CBC, CMPF #### Testing performed at [address] [address] Potassium [Moles/Vol] 3.5 mmol/L Normal 3.5-5.1 [facility] Comment on above: Performed By: #### A CBC, CMPF #### Testing performed at [address] [address] Sodium [Moles/Vol] 142 mmol/L Normal 136-145 [facility] Comment on above: Performed By: #### A CBC, CMPF #### Testing performed at [address] [address] CHEM 7 (LYTES,BUN,CREA,GLUC) on 01-09-2019 Chloride [Moles/Vol] 110 mmol/L High [facility] CO2 [Moles/Vol] 19 mmol/L Low [facility] Creatinine [Mass/Vol] 1.08 mg/dL [facility] GFR/1.73 sq M predicted among blacks MDRD (S/P/Bld) [Vol rate/Area] mL/min/{1.73_m2} ml/min/1.73sq. m [facility] GFR/1.73 sq M predicted among non-blacks MDRD (S/P/Bld) [Vol rate/Area] mL/min/{1.73_m2} ml/min/1.73sq. m [facility] GFR/1.73 sq M predicted among non-blacks MDRD (S/P/Bld) [Vol rate/Area] Average GFR for 50-59 years old = 93. [facility] Comment on above: Chronic Kidney disea se, GFR = <60. Kidney failure, GFR = <15. The GFR estimate is not adjusted for extreme body surface area or acute process, nor has it been validated for women or ethnic groups other than and . Glucose post fast [Mass/Vol] 125 mg/dL High [facility] Comment on above: NORMAL <100 mg/dL PREDIABETES 101-126 mg/dL DIABETES 126 mg/dL or higher Potassium [Moles/Vol] 3.5 mmol/L [facility] Sodium [Moles/Vol] 142 mmol/L [facility] [place] Urea nitrogen [Mass/Vol] 28 mg/dL High [facility] CT ABDOMEN/PELVIS WITHOUT CO NTRASTon 01-09-2019 CT ABDOMEN/PELVIS WITHOUT CONTRAST EXAMINATION: CT ABDOMEN/PELVIS WITHOUT CONTRAST HISTORY: Right flank pain. COMPARISON: 2018 TECHNIQUE: CT examination of the abdomen and pelvis without IV contrast. Coronal and sagittal reformations were performed. Dose reduction techniques were achieved by using automated exposure control and/or adjustment of mA and/or kV according to patient size and/or use of iterative reconstruction technique. FINDINGS: ABDOMEN: Minimal atelectatic and/or fibrotic changes in the lower lung parry. Views of the liver and spleen fail to demonstrate evidence of focal mass in either organ. Gallbladder, pancreas and adrenal glands appear grossly unremarkable. Mild diverticulosis of the colon without acute diverticulitis. Visualized vascular structures are intact. No evidence of adenopathy in the retroperitoneum. Mild right hydronephrosis and proximal right hydroureter to the level of an approximately 3.5 x 3.5 mm calculus causing early and/or mild to moderate obstructive uropathy on the right. There is mild edematous appearance of the right renal cortex with minimal perirenal fatty stranding on the right. There is a 3 mm nonobstructive calculus in the near midportion of the right kidney. There is a 5 mm nonobstructive calculus in the near midportion of the left kidney. 1.2 cm area of decreased density in the anterior right kidney inferiorly likely representing cyst. PELVIS: Tiny fat filled umbilical hernia without bowel content. No obvious bladder mass or calculus. Prostate gland is within normal limits for size. Perirectal fat planes are grossly intact. Mild diverticulosis of the descending colon. No evidence of acute diverticulitis. Visualized vascular structures are grossly intact. No evidence of adenopathy. The appendix is visualized and appears unremarkable. A few calcifications are seen compatible with phleboliths. Bilateral spondylolysis L4 with high grade 1 spondylolisthesis at L4-L5 approximately 7 mm. Mild posterior offset of L5 vertebral body upon S1 likely related to ligament laxity/degenerative change. Moderate degenerative changes about the L4-L5 level. IMPRESSION: CT abdomen and CT pelvis studies demonstrate an approximately 3.5 x 3.5 mm calculus in the proximal right ureter causing early and/or mild to moderate obstructive uropathy on the right. Calculus at the L4 level, noted on series 2 axial image 60. Single nonobstructive calculus in each kidney. Likely right renal cyst as noted. Mild colon diverticulosis without acute diverticulitis. Tiny fat filled umbilical hernia. Normal [facility] Otheron 01-09-2019 Interpretation and review of laboratory results Abnormal [facility] Interpret[facility] and review of laboratory results Abnormal [facility] URINALYSIS, MACROon 01-10-20 19 Bilirubin Ql (U) Negative NEGATIVE [facility] Clarity (U) CLEAR CLEAR [facility] Color (U) YELLOW YELLOW [facility] Glucose Test strip (U) [Mass/Vol] Negative NEGATIVE mg/dl [employer] [place] Hemoglobin Ql (U) SMALL Abnormal NEGATIVE [facility] Ketones (U) [Mass/Vol] Negative NEGATIVE mg/dl [facility] Leukocyte esterase Test strip Ql (U) Negative NEGATIVE [facility] Nitrite Ql (U) Negative NEGATIVE [facility] TH pH (U) 6.0 [pH] [facility] Protein Ql (U) Negative NEGATIVE mg/dl [facility] Specific gravity (U) [Rel density] >1.030 High [facility] Urobilinogen (U) [Mass/Vol] 0.2 [facility] URINE MACROSCOPICon 01-10-20 19 Bilirubin Ql (U) Negative Normal NEGATIVE [facility] Comment on above: Performed By: #### A CBC, CMPF #### Testing performed at [address] [address] Clarity (U) CLEAR Normal CLEAR [facility] Comment on above: Performed By: #### A CBC, CMPF #### Testing performed at [address] [address] Color (U) YELLOW Normal YELLOW [facility] Comment on above: Performed By: #### A CBC, CMPF #### Testing performed at [address] [address] Glucose Ql (U) Negative Normal NEGATIVE [facility] Comment on above: Performed By: #### A CBC, CMPF #### Testing performed at [address] [address] pH (U) 6.0 [pH] Normal 5.0-7.0 [facility] Comment on above: Performed By: #### A CBC, CMPF #### Testing performed at [address] [address] Protein (U) [Mass/Vol] Negative Normal NEGATIVE [facility] Comment on above: Performed By: #### A CBC, CMPF #### Testing performed at [address] [place] [address] URINE HEMOGLOBIN SMALL Abnormal NEGATIVE [facility] Comment on above: Performed By: #### A CBC, CMPF #### Testing performed at [address] [place] [address] URINE KETONE Negative Normal NEGATIVE [facility] Comment on above: Performed By: #### A CBC, CMPF #### Testing performed at [address] [place] [address] URINE LEUKOTEST Negative Normal NEGATIVE [facility] Comment on above: Performed By: #### A CBC, CMPF #### Testing performed at [address] [address] URINE NITRATES Negative Normal NEGATIVE [facility] Comment on above: Performed By: #### A CBC, CMPF #### Testing performed at [address] [address] URINE SPEC GRAVITY >1.030 High 1.010-1.025 [facility] Comment on above: Performed By: #### A CBC, CMPF #### Testing performed at [address] [address] Urobilinogen Qn (U) 0.2 {Katty'U}/dL Normal 0.2-1.0 [facility] Comment on above: Performed By: #### A CBC, CMPF #### Testing performed at [address] [address] URINE MICROSCOPICon 01-10-20 19 Bacteria LM.HPF (Urine sed) [#/Area] TRACE Abnormal NEGATIVE [facility] Comment on above: Performed By: #### A CBC, CMPF #### Testing performed at [address] [address] Casts LM.LPF (Urine sed) [#/Area] NONE Normal NONE [facility] Comment on above: Performed By: #### A CBC, CMPF #### Testing performed at [address] [address] CRYSTAL NONE Normal [facility] Comment on above: Performed By: #### A CBC, CMPF #### Testing performed at [address] [address] Epithelial cells LM.HPF (Urine sed) [#/Area] NONE Normal [facility] Comment on above: Performed By: #### A CBC, CMPF #### Testing performed at [address] [address] Mucus Ql (Urine sed) Negative Normal NEGATIVE [facility] Comment on above: Performed By: #### A CBC, CMPF #### Testing performed at [address] [address] RBC (U) [#/Vol] 1 TO 5 Normal NEGATIVE [facility] Comment on above: Performed By: #### A CBC, CMPF #### Testing performed at [address] [address] URINE COMMENT CULTURE CRITERIA NOT MET, NO CULTURE PERFORMED. Normal [facility] Comment on above: Performed By: #### A CBC, CMPF #### Testing performed at [address] [address] WBC (U) [#/Vol] 1 TO 5 Normal NEGATIVE [facility] Comment on above: Performed By: #### A CBC, CMPF #### Testing performed at [address] [address] Bacteria LM.HPF (Urine sed) [#/Area] TRACE Abnormal NEGATIVE [facility] Casts LM.LPF (Urine sed) [#/Area] NONE NONE /LPF [facility] Crystals LM Nom (Urine sed) NONE NONE [facility] Epithelial cells LM Ql (Urine sed) NONE /HPF [facility] Mucus Ql (Urine sed) Negative NEGATIVE [facility] RBC LM.HPF (Urine sed) [#/Area] 1 TO 5 NEGATIVE /HPF [facility] Urine sediment comments LM Oliverio (Urine sed) CULTURE CRITERIA NOT MET, NO CULTURE PERFORMED. [facility] WBC LM.HPF (Urine sed) [#/Area] 1 TO 5 NEGATIVE /HPF [facility] CT HEAD WITHOUT CONTRASTon 0 11-20-2018 CT HEAD WITHOUT CONTRAST EXAM: CT HEAD WITHOUT CONTRAST CLINICAL STATEMENT: Trauma. COMPARISON: CT brain from March 12, 2011. TECHNIQUE: CT examination of the head without IV contrast. Dose reduction techniques were achieved by using automated exposure control and/or adjustment of mA and/or kV according to patient size and/or use of iterative reconstruction technique. FINDINGS: No acute intracranial hemorrhage, mass effect, or midline shift. No loss of reyes/white matter differentiation to suggest acute territorial infarction. The ventricles are nondilated. Cortical sulci are unremarkable. No intra-axial or extra-axial fluid collections are present. The calvarium is intact. The visualized paranasal sinuses and mastoid air cells are clear. The visualized orbital structures are unremarkable. Right parietal scalp soft tissue swelling is noted. IMPRESSION: No acute intracranial hemorrhage or mass effect. Normal [facility] BASIC METABOLIC PANELon 07-0 Anion gap [Moles/Vol] 11 mmol/L [facility] Calcium [Mass/Vol] 9.0 mg/dL [facility] Chloride [Moles/Vol] 104 mmol/L [facility] CO2 [Moles/Vol] 21 mmol/L Low [facility] Creatinine [Mass/Vol] 0.90 mg/dL [facility] GFR/1.73 sq M predicted among blacks MDRD (S/P/Bld) [Vol rate/Area] mL/min/{1.73_m2} ml/min/1.73sq. m [facility] GFR/1.73 sq M predicted among non-blacks MDRD (S/P/Bld) [Vol rate/Area] mL/min/{1.73_m2} ml/min/1.73sq. m [facility] GFR/1.73 sq M predicted among non-blacks MDRD (S/P/Bld) [Vol rate/Area] Average GFR for 50-59 years old = 93. [facility] Comment on above: Chronic Kidney disea se, GFR = <60. Kidney failure, GFR = <15. The GFR estimate is not adjusted for extreme body surface area or acute process, nor has it been validated for women or ethnic groups other than and . Glucose post fast [Mass/Vol] 141 mg/dL High [facility] Comment on above: NORMAL <100 mg/dL PREDIABETES 101-126 mg/dL DIABETES 126 mg/dL or higher Potassium [Moles/Vol] 3.8 mmol/L [facility] Sodium [Moles/Vol] 136 mmol/L [facility] Urea nitrogen [Mass/Vol] 15 mg/dL [facility] BMP FASTINGon 11-19-2018 Creatinine [Mass/Vol] 0.90 mg/dL Normal 0.66-1.25 [facility] Comment on above: Performed By: #### P T, PTT, ACBC, BMPF #### Testing performed at [place] [id number] EST. GFR, >60 Normal [facility] Comment on above: Performed By: #### P T, PTT, ACBC, BMPF #### Testing performed at [place] [id number] EST. GFR,Non >60 Normal [facility] Comment on above: Performed By: #### P T, PTT, ACBC, BMPF #### Testing performed at [address] [address] GFR/1.73 sq M predicted among non-blacks MDRD (S/P/Bld) [Vol rate/Area] Average GFR for 50-59 years old = 93. Normal [facility] Comment on above: Result Comment: Senior Security Analyst blu Kidney disease, GFR = <60. Kidney failure, GFR = <15. The GFR estimate is not adjusted for extreme body surface area or acute process, nor has it been validated for women or ethnic groups other than and . Performed By: #### P T, PTT, ACBC, BMPF #### Testing performed at [address] [address] Urea nitrogen [Mass/Vol] 15 mg/dL Normal 7-20 [facility] Comment on above: Performed By: #### P T, PTT, ACBC, BMPF #### Testing performed at [address] [address] Anion gap [Moles/Vol] 11 mmol/L Normal 8-16 [facility] Comment on above: Performed By: #### P T, PTT, ACBC, BMPF #### Testing performed at [address] [address] Calcium [Mass/Vol] 9.0 mg/dL Normal 8.4-10.2 [facility] Comment on above: Performed By: #### P T, PTT, ACBC, BMPF #### Testing performed at [address] [address] Chloride [Moles/Vol] 104 mmol/L Normal 98-107 [facility] Comment on above: Performed By: #### P T, PTT, ACBC, BMPF #### Testing performed at [address] [address] CO2 [Moles/Vol] 21 mmol/L Low 22-30 [facility] Comment on above: Performed By: #### P T, PTT, ACBC, BMPF #### Testing performed at [address] [address] Glucose [Mass/Vol] 141 mg/dL High 70-100 [facility] Comment on above: Result Comment: NORMAL <100 mg/dL PREDIABETES 101-126 mg/dL DIABETES 126 mg/dL or higher Performed By: #### P T, PTT, ACBC, BMPF #### Testing performed at [address] [address] Potassium [Moles/Vol] 3.8 mmol/L Normal 3.5-5.1 [facility] Comment on above: Performed By: #### P T, PTT, ACBC, BMPF #### Testing performed at [address] [address] Sodium [Moles/Vol] 136 mmol/L Normal 136-145 [facility] Comment on above: Performed By: #### P T, PTT, ACBC, BMPF #### Testing performed at [address] [address] CBCon 11-19-2018 ABSOLUTE BAS 0.0 X10 Normal [facility] Comment on above: Performed By: #### P T, PTT, ACBC, BMPF #### Testing performed at [address] [address] ABSOLUTE EOS 0.00 X10 Normal [facility] Comment on above: Performed By: #### P T, PTT, ACBC, BMPF #### Testing performed at [address] [address] ABSOLUTE NEUTROPHIL COUNT 6.1 x10 Normal 1.0-7.0 [facility] Comment on above: Performed By: #### P T, PTT, ACBC, BMPF #### Testing performed at [address] [address] Basophils/100 WBC (Bld) 0.2 % Normal 0.0-2.0 [facility] Comment on above: Performed By: #### P T, PTT, ACBC, BMPF #### Testing performed at [address] [address] DTYPE AUTO DIFF Normal [facility] Comment on above: Performed By: #### P T, PTT, ACBC, BMPF #### Testing performed at [place] [id number] Eosinophils/100 WBC (Bld) 0.1 % Normal 0.0-11.0 [facility] Comment on above: Performed By: #### P T, PTT, ACBC, BMPF #### Testing performed at [address] [address] Lymphocytes (Bld) [#/Vol] 0.90 X10 Normal [facility] Comment on above: Performed By: #### P T, PTT, ACBC, BMPF #### Testing performed at [address] [address] Lymphocytes/100 WBC (Bld) 12.1 % Low 20.0-55.0 [facility] Comment on above: Performed By: #### P T, PTT, ACBC, BMPF #### Testing performed at [address] [address] Monocytes (Bld) [#/Vol] 0.4 X10 Normal [facility] Comment on above: Performed By: #### P T, PTT, ACBC, BMPF #### Testing performed at [address] [address] Monocytes/100 WBC (Bld) 5.8 % Normal 0.0-10.0 [facility] Comment on above: Performed By: #### P T, PTT, ACBC, BMPF #### Testing performed at [address] [address] Neutrophils/100 WBC (Bld) 81.8 % High 37.0-75.0 [facility] Comment on above: Performed By: #### P T, PTT, ACBC, BMPF #### Testing performed at [address] [address] Erythrocyte distribution width (RBC) [Ratio] 15.2 % High 11.5-14.5 [facility] Comment on above: Performed By: #### P T, PTT, ACBC, BMPF #### Testing performed at [address] [address] Hematocrit (Bld) [Volume fraction] 43.6 % Normal 42.0-52.0 [facility] Comment on above: Performed By: #### P T, PTT, ACBC, BMPF #### Testing performed at [address] [address] Hemoglobin (Bld) [Mass/Vol] 15.4 g/dL Normal 14.0-18.0 [facility] Comment on above: Performed By: #### P T, PTT, ACBC, BMPF #### Testing performed at [address] [address] MCH (RBC) [Entitic mass] 29.4 pg Normal 26.0-35.0 [facility] Comment on above: Performed By: #### P T, PTT, ACBC, BMPF #### Testing performed at [address] [address] MCHC (RBC) [Mass/Vol] 35.3 g/dL Normal 27.0-37.0 [facility] Comment on above: Performed By: #### P T, PTT, ACBC, BMPF #### Testing performed at [address] [address] MCV (RBC) [Entitic vol] 83.4 fL Normal 80.0-100.0 [facility] Comment on above: Performed By: #### P T, PTT, ACBC, BMPF #### Testing performed at [address] [address] Platelet mean volume (Bld) [Entitic vol] 7.5 fL Normal 7.4-11.0 [facility] Comment on above: Performed By: #### P T, PTT, ACBC, BMPF #### Testing performed at [address] [address] Platelets (Bld) [#/Vol] 169 /cmm Normal 130.0-400.0 [facility] Comment on above: Performed By: #### P T, PTT, ACBC, BMPF #### Testing performed at [address] [address] RBC (Bld) [#/Vol] 5.22 /cmm Normal 4.0-6.1 [facility] Comment on above: Performed By: #### P T, PTT, ACBC, BMPF #### Testing performed at [address] [address] WBC (Bld) [#/Vol] 7.5 /cmm Normal 3.6-11.0 [facility] Comment on above: Performed By: #### P T, PTT, ACBC, BMPF #### Testing performed at [facility] [address] [facility] [place] [address] CBC, EDIF, PLATELETon 2018 ABSOLUTE BASOPHIL COUNT 0.0 X10 [facility] Basophils/100 WBC (Bld) 0.2 % 0 - 2 % [facility] Differential cell count method Nom (Bld) AUTO DIFF % [facility] Eosinophils (Bld) [#/Vol] 0.00 10*3/uL X10 [facility] Eosinophils/100 WBC (Bld) 0.1 % 0 - 11 % [facility] Erythrocyte distribution width (RBC) [Ratio] 15.2 % High 11.5 - 14.5 % [facility] Hematocrit (Bld) [Volume fraction] 43.6 % 42 - 52 % [facility] Hemoglobin (Bld) [Mass/Vol] 15.4 g/dL [facility] Lymphocytes (Bld) [#/Vol] 0.90 10*3/uL X10 [facility] Lymphocytes/100 WBC (Bld) 12.1 % Low 20 - 55 % [facility] MCH (RBC) [Entitic mass] 29.4 pg 26 - 35 PG [facility] MCHC (RBC) [Mass/Vol] 35.3 g/dL [facility] MCV (RBC) [Entitic vol] 83.4 fL [facility] Monocytes (Bld) [#/Vol] 0.4 10*3/uL X10 [facility] Monocytes/100 WBC (Bld) 5.8 % 0 - 10 % [facility] Neutrophils (Bld) [#/Vol] 6.1 10*3/uL [facility] Neutrophils/100 WBC (Bld) 81.8 % High 37 - 75 % [facility] Platelet mean volume (Bld) [Entitic vol] 7.5 fL [facility] Platelets (Bld) [#/Vol] 169 10*3/uL [facility] RBC (Bld) [#/Vol] 5.22 10*6/uL [facility] WBC (Bld) [#/Vol] 7.5 10*3/uL [facility] Otheron 11-19-2018 Interpretation and review of laboratory results Abnormal [facility] PROTIMEon 11-19-2018 INR Coag (PPP) [Relative time] 0.98 {INR} Normal 0.88-1.12 [facility] Comment on above: Result Comment: 2.0- 3.0 THERAPEUTIC RANGE 2.5-3.5 PROSTHETIC VALVE RANGE Performed By: #### P T, PTT, ACBC, BMPF #### Testing performed at [address] [address] PT Coag (PPP) [Time] 12.9 s Normal 11.6-14.0 [facility] Comment on above: Performed By: #### P T, PTT, ACBC, BMPF #### Testing performed at [address] [address] PROTIME-INRon 11-19-2018 INR Coag (PPP) [Relative time] 0.98 {INR} [facility] Comment on above: 2.0-3.0 THERAPEUTIC RANGE 2.5-3.5 PROSTHETIC VALVE RANGE PT Coag (PPP) [Time] 12.9 s [facility] PTTon 11-19-2018 aPTT Coag (Bld) [Time] 22.5 s Low 23.2-34.5 [facility] Comment on above: Result Comment: THER APEUTIC RANGE (43.0-65.0) Performed By: #### P T, PTT, ACBC, BMPF #### Testing performed at [address] [address] aPTT Coag (Bld) [Time] 22.5 s Low [facility] Comment on above: THERAPEUTIC RANGE (4 3.0-65.0) CBCon 2018 ABSOLUTE BAS 0.1 X10 Normal [facility] Comment on above: Performed By: #### A CBC, CMPF #### Testing performed at [address] [address] ABSOLUTE EOS 0.20 X10 Normal [facility] Comment on above: Performed By: #### A CBC, CMPF #### Testing performed at [address] [address] ABSOLUTE NEUTROPHIL COUNT 3.8 x10 Normal 1.0-7.0 [facility] Comment on above: Performed By: #### A CBC, CMPF #### Testing performed at [address] [address] Basophils/100 WBC (Bld) 0.8 % Normal 0.0-2.0 [facility] Comment on above: Performed By: #### A CBC, CMPF #### Testing performed at [address] [place] [address] DTYPE AUTO DIFF Normal [facility] Comment on above: Performed By: #### A CBC, CMPF #### Testing performed at [address] [address] Eosinophils/100 WBC (Bld) 2.3 % Normal 0.0-11.0 [facility] Comment on above: Performed By: #### A CBC, CMPF #### Testing performed at [address] [address] Lymphocytes (Bld) [#/Vol] 1.90 X10 Normal [facility] Comment on above: Performed By: #### A CBC, CMPF #### Testing performed at [address] [place] [address] Lymphocytes/100 WBC (Bld) 28.1 % Normal 20.0-55.0 [facility] Comment on above: Performed By: #### A CBC, CMPF #### Testing performed at [address] [address] Monocytes (Bld) [#/Vol] 0.8 X10 Normal [facility] Comment on above: Performed By: #### A CBC, CMPF #### Testing performed at [address] [place] [address] Monocytes/100 WBC (Bld) 12.3 % High 0.0-10.0 [facility] Comment on above: Performed By: #### A CBC, CMPF #### Testing performed at [address] [place] [address] Neutrophils/100 WBC (Bld) 56.5 % Normal 37.0-75.0 [facility] Comment on above: Performed By: #### A CBC, CMPF #### Testing performed at [address] [place] [address] Erythrocyte distribution width (RBC) [Ratio] 14.7 % High 11.5-14.5 [facility] Comment on above: Performed By: #### A CBC, CMPF #### Testing performed at [address] [address] Hematocrit (Bld) [Volume fraction] 41.3 % Low 42.0-52.0 [facility] Comment on above: Performed By: #### A CBC, CMPF #### Testing performed at [address] [address] Hemoglobin (Bld) [Mass/Vol] 13.9 g/dL Low 14.0-18.0 [facility] Comment on above: Performed By: #### A CBC CMPF #### Testing performed at [address] [address] MCH (RBC) [Entitic mass] 27.8 pg Normal 26.0-35.0 [facility] Comment on above: Performed By: #### A CBC, CMPF #### Testing performed at [address] [address] MCHC (RBC) [Mass/Vol] 33.7 g/dL Normal 27.0-37.0 [facility] Comment on above: Performed By: #### A CBC, CMPF #### Testing performed at [address] [address] MCV (RBC) [Entitic vol] 82.5 fL Normal 80.0-100.0 [facility] Comment on above: Performed By: #### A CBC, CMPF #### Testing performed at [address] [address] Platelet mean volume (Bld) [Entitic vol] 7.4 fL Normal 7.4-11.0 [facility] Comment on above: Performed By: #### A CBC, CMPF #### Testing performed at [address] [address] Platelets (Bld) [#/Vol] 187 /cmm Normal 130.0-400.0 [facility] Comment on above: Performed By: #### A CBC, CMPF #### Testing performed at [address] [address] RBC (Bld) [#/Vol] 5.00 /cmm Normal 4.0-6.1 [facility] Comment on above: Performed By: #### A CBC, CMPF #### Testing performed at [address] [address] WBC (Bld) [#/Vol] 6.7 /cmm Normal 3.6-11.0 [facility] Comment on above: Performed By: #### A CBC, CMPF #### Testing performed at [address] [address] CMP FASTINGon 2018 A:G RATIO 1.3 RATIO Normal 1.3-2.2 [facility] Comment on above: Performed By: #### A CBC, CMPF #### Testing performed at [address] [address] Albumin [Mass/Vol] 4.3 G/dl Normal 3.5-5.0 [facility] Comment on above: Performed By: #### A CBC, CMPF #### Testing performed at [address] [place] [address] ALP [Catalytic activity/Vol] 47 U/L Normal 38-126 [facility] Comment on above: Performed By: #### A CBC, CMPF #### Testing performed at [address] [address] ALT [Catalytic activity/Vol] 24 U/L Normal 17-63 [facility] Comment on above: Performed By: #### A CBC, CMPF #### Testing performed at [address] [place] [address] AST [Catalytic activity/Vol] 21 U/L Normal 15-41 [facility] Comment on above: Performed By: #### A CBC, CMPF #### Testing performed at [address] [address] Bilirubin [Mass/Vol] 0.5 mg/dL Normal 0.2-1.2 [facility] Comment on above: Performed By: #### A CBC, CMPF #### Testing performed at [address] [address] Creatinine [Mass/Vol] 1.0 mg/dL Normal 0.66-1.25 [facility] Comment on above: Performed By: #### A CBC, CMPF #### Testing performed at [address] [address] EST. GFR, >60 Normal [facility] Comment on above: Performed By: #### A CBC, CMPF #### Testing performed at [address] [address] EST. GFR,Non >60 Normal [facility] Comment on above: Performed By: #### A CBC, CMPF #### Testing performed at [address] [address] GFR/1.73 sq M predicted among non-blacks MDRD (S/P/Bld) [Vol rate/Area] Average GFR for 50-59 years old = 93. Normal [facility] Comment on above: Result Comment: Senior Security Analyst blu Kidney disease, GFR = <60. Kidney failure, GFR = <15. The GFR estimate is not adjusted for extreme body surface area or acute process, nor has it been validated for women or ethnic groups other than and . Performed By: #### A CBC, CMPF #### Testing performed at [address] [address] Protein [Mass/Vol] 7.5 g/dL Normal 6.3-8.2 [facility] Comment on above: Performed By: #### A CBC, CMPF #### Testing performed at [address] [address] Urea nitrogen [Mass/Vol] 19 mg/dL Normal 7-20 [facility] Comment on above: Performed By: #### A CBC, CMPF #### Testing performed at [address] [address] Calcium [Mass/Vol] 9.0 mg/dL Normal 8.4-10.2 [facility] Comment on above: Performed By: #### A CBC, CMPF #### Testing performed at [address] [address] Chloride [Moles/Vol] 107 mmol/L Normal 98-107 [facility] Comment on above: Performed By: #### A CBC, CMPF #### Testing performed at [address] [address] CO2 [Moles/Vol] 24 mmol/L Normal 22-30 [facility] Comment on above: Performed By: #### A CBC, CMPF #### Testing performed at [address] [address] Glucose [Mass/Vol] 101 mg/dL High 70-100 [facility] Comment on above: Result Comment: NORMAL <100 mg/dL PREDIABETES 101-126 mg/dL DIABETES 126 mg/dL or higher Performed By: #### A CBC, CMPF #### Testing performed at [address] [address] Potassium [Moles/Vol] 3.5 mmol/L Normal 3.5-5.1 [facility] Comment on above: Performed By: #### A CBC, CMPF #### Testing performed at [address] [address] Sodium [Moles/Vol] 139 mmol/L Normal 136-145 [facility] Comment on above: Performed By: #### A CBC, CMPF #### Testing performed at [address] [address] [address] ABDOMEN/PELVIS WITHOUT CO NTRASTon 2018 CT ABDOMEN/PELVIS WITHOUT CONTRAST EXAM: CT ABDOMEN/PELVIS WITHOUT CONTRAST CLINICAL STATEMENT: [...] spondylolysis associated with severe degenerative disc disease. Normal [facility] URINE CULTUREon 2018 Bacteria identified Cx Nom (U) SPECIMEN DESCRIPTION URINE CLEAN CATCH UA DIPSTICK LEUKOCYTE NEGATIVE * Result Note: NITRITE NEGATIVE * CULTURE NO GROWTH 2 DAYS * Result Note: Testing performed at [place] [address] * REPORT STATUS 02/28/2018 * Result Note: FINAL * Normal [facility] Comment on above: Performed By: #### A URNC #### Testing performed at [address] [address] Testing performed at [address] [address] URINE MACROSCOPICon 02-26-20 18 Bilirubin Ql (U) Negative Normal NEGATIVE [facility] Comment on above: Performed By: #### U MAC, UMIC #### Testing performed at [address] [address] Clarity (U) CLEAR Normal CLEAR [facility] Comment on above: Performed By: #### U MAC, UMIC #### Testing performed at [address] [address] Color (U) YELLOW Normal YELLOW [facility] Comment on above: Performed By: #### U MAC, UMIC #### Testing performed at [address] [address] Glucose Ql (U) Negative Normal NEGATIVE [facility] Comment on above: Performed By: #### U MAC, UMIC #### Testing performed at [address] [address] pH (U) 6.5 [pH] Normal 5.0-7.0 [facility] Comment on above: Performed By: #### U MAC, UMIC #### Testing performed at [address] [address] Protein (U) [Mass/Vol] Negative Normal NEGATIVE [facility] Comment on above: Performed By: #### U MAC, UMIC #### Testing performed at [address] [place] [address] URINE HEMOGLOBIN MODERATE Abnormal NEGATIVE [facility] Comment on above: Performed By: #### U MAC, UMIC #### Testing performed at [address] [place] [address] URINE KETONE Negative Normal NEGATIVE [facility] Comment on above: Performed By: #### U MAC, UMIC #### Testing performed at [address] [address] URINE LEUKOTEST Negative Normal NEGATIVE [facility] Comment on above: Performed By: #### U MAC, UMIC #### Testing performed at [address] [address] URINE NITRATES Negative Normal NEGATIVE [facility] Comment on above: Performed By: #### U MAC, UMIC #### Testing performed at [address] [address] URINE SPEC GRAVITY 1.015 Normal 1.010-1.025 [facility] Comment on above: Performed By: #### U MAC, UMIC #### Testing performed at [address] [address] Urobilinogen Qn (U) 0.2 mg/dl Normal 0.2-1.0 [facility] Comment on above: Performed By: #### U MAC, UMIC #### Testing performed at [address] [address] URINE MICROSCOPICon 10-13-20 18 Bacteria LM.HPF (Urine sed) [#/Area] TRACE Abnormal NEGATIVE [facility] Comment on above: Performed By: #### U MAC, UMIC #### Testing performed at [address] [address] Casts LM.LPF (Urine sed) [#/Area] NONE Normal NONE [facility] Comment on above: Performed By: #### U MAC, UMIC #### Testing performed at [address] [address] CRYSTAL NONE Normal NONE [facility] Comment on above: Performed By: #### U MAC, UMIC #### Testing performed at [address] [address] Epithelial cells LM.HPF (Urine sed) [#/Area] 1 TO 5 Normal [facility] Comment on above: Performed By: #### U MAC, UMIC #### Testing performed at [address] [address] Mucus Ql (Urine sed) Negative Normal NEGATIVE [facility] Comment on above: Performed By: #### U MAC, UMIC #### Testing performed at [place] [id number] RBC (U) [#/Vol] TOO NUMEROUS TO COUNT Abnormal NEGATIVE [facility] Comment on above: Performed By: #### U MAC, UMIC #### Testing performed at [address] [address] URINE COMMENT REFLEX CULTURE PER ESTABLISHED CRITERIA. Normal [facility] Comment on above: Performed By: #### U MAC, UMIC #### Testing performed at [address] [address] WBC (U) [#/Vol] 1 TO 5 Normal NEGATIVE [facility] Comment on above: Performed By: #### U MAC, UMIC #### Testing performed at [address] [address] XR Femur Min 2 Views Righton 01-16-2018 XR Femur Min 2 Views Right Exam Date/Time: 01/16/2018 19:16 EDT Reason for Exam: Leg pain Report STUDY: XR Pelvis 1 or 2 Views; XR Femur Min 2 Views Right; 01/16/2018 7:16 pm INDICATION: Pain, Traumatic; Leg pain. COMPARISON: None. ACCESSION NUMBER(S): [id number]; [id number] ORDERING CLINICIAN: Saad Sears FINDINGS: There is no fracture. There is no dislocation. No significant degenerative changes seen. No soft tissue abnormality seen along the right thigh.. IMPRESSION: No fracture or dislocation. FINAL REPORT Dictated: 01/16/2018 7:38 pm Austin Ricks MD Signed (Electronic Signature): 01/16/2018 7:38 pm Signed by: Austin Rikcs MD Technologist: [facility] XR Pelvis 1 or 2 Viewson XR Pelvis 1 or 2 Views Exam Date/Time: 01/16/2018 19:16 EDT Reason for Exam: Pain, Traumatic Report STUDY: XR Pelvis 1 or 2 Views; XR Femur Min 2 Views Right; 01/16/2018 7:16 pm INDICATION: Pain, Traumatic; Leg pain. COMPARISON: None. ACCESSION NUMBER(S): [id number]; [id number] ORDERING CLINICIAN: Saad Sears FINDINGS: There is no fracture. There is no dislocation. No significant degenerative changes seen. No soft tissue abnormality seen along the right thigh.. IMPRESSION: No fracture or dislocation. FINAL REPORT Dictated: 01/16/2018 7:38 pm Austin Ricks MD Signed (Electronic Signature): 01/16/2018 7:38 pm Signed by: Austin Ricks MD Technologist: [facility] POC Influenza A/Bon 07-15-19 Interpretation and review of laboratory results Normal Invalid Interpretation Code [facility] Rapid Influenza A/B Ag Negative Invalid Interpretation Code Negative [facility] Vital Signs Date Time Vital Sign Value Performing Clinician Facility 01-24-2024 14:54-0400 Body temperature 100.29 [degF] Randal [place] DPM Work Phone: [facility] 01-24-2024 14:54-0400 Diastolic blood pressure 87 mm[Hg] Randal [place] DPM Work Phone: [facility] 01-24-2024 14:54-0400 Heart rate 75 /min Randal [place] DPM Work Phone: [facility] 09-10-2024 14:54-0400 Systolic blood pressure 143 mm[Hg] Randal Duckworth DPM Work Phone: [facility] 09-16-2022 07:55-0400 Body height 170.2 cm Kalin Newbill PA-C Work Phone: [facility] 09-16-2022 07:55-0400 Body mass index (BMI) [Ratio] 33.99 kg/m2 Kalin Newbill PA-C Work Phone: [facility] 09-16-2022 07:55-0400 Body weight 98.43 kg Kalin Newbill PA-C Work Phone: [facility] 09-16-2022 07:55-0400 Diastolic blood pressure 98 mm[Hg] Kalin Newbill PA-C Work Phone: [facility] 09-16-2022 07:55-0400 Heart rate 80 /min Kalin Newbill PA-C Work Phone: [facility] 09-16-2022 07:55-0400 SaO2% (BldA) [Mass fraction] 96 % Kalin Newbill PA-C Work Phone: [facility] 09-16-2022 07:55-0400 Systolic blood pressure 157 mm[Hg] Kalin Newbill PA-C Work Phone: [facility] 04-21-2022 09:02-0500 Body height 170.18 cm Page L Oberhauser Work Phone: [facility] Work Phone: 04-21-2022 09:02-0500 Body mass index (BMI) [Ratio] 33.22 kg/m2 Page L Oberhauser Work Phone: [facility] Work Phone: 04-21-2022 09:02-0500 Body surface area Derived from formula 2.07 m2 Page L Oberhauser Work Phone: [facility] Work Phone: 04-21-2022 09:02-0500 Body temperature 98.6 [degF] Page L Oberhauser Work Phone: [facility] Work Phone: 04-21-2022 09:02-0500 Body weight 96.21 kg Page L Oberhauser Work Phone: [facility] Work Phone: 04-21-2022 09:02-0500 Diastolic blood pressure 93 mm[Hg] Page L Oberhauser Work Phone: [facility] Work Phone: 04-21-2022 09:02-0500 Heart rate 107 /min Page L Oberhauser Work Phone: [facility] Work Phone: 04-21-2022 09:02-0500 SaO2% (BldA) [Mass fraction] 96 % Page L Oberhauser Work Phone: [facility] Work Phone: 04-21-2022 09:02-0500 Systolic blood pressure 153 mm[Hg] Page L Oberhauser Work Phone: [facility] Work Phone: 12-30-2020 15:28-0400 Body height 170.18 cm Page L Oberhauser Work Phone: [facility] Work Phone: 12-30-2020 15:28-0400 Body mass index (BMI) [Ratio] 33.89 kg/m2 Page L Oberhauser Work Phone: [facility] Work Phone: 12-30-2020 15:28-0400 Body surface area Derived from formula 2.09 m2 Page Hahnerorener Work Phone: [facility] Work Phone: 12-30-2020 15:28-0400 Body temperature 98.9 [degF] Page Galeer Work Phone: [facility] Work Phone: 12-30-2020 15:28-0400 Body weight 98.16 kg Page Galeer Work Phone: [facility] Work Phone: 12-30-2020 15:28-0400 Diastolic blood pressure 91 mm[Hg] Page Hahnerorener Work Phone: [facility] Work Phone: 12-30-2020 15:28-0400 Heart rate 72 /min Page Galeer Work Phone: [facility] Work Phone: 12-30-2020 15:28-0400 SaO2% (BldA) [Mass fraction] 96 % Page Galeer Work Phone: [facility] Work Phone: 12-30-2020 15:28-0400 Systolic blood pressure 143 mm[Hg] Page Hahnerorener Work Phone: [facility] Work Phone: 01-15-2019 16:14-0400 BP Diastolic 89 mm[Hg] [facility] 01-15-2019 16:14-0400 BP Systolic 144 mm[Hg] [facility] 01-15-2019 16:14-0400 Pulse (Heart Rate) 93 /min [facility] 01-15-2019 16:14-0400 Pulse Oximetry 97 % [facility] 01-15-2019 16:14-0400 Respiratory Rate 16 /min [facility] 01-15-2019 12:57-0400 Body Temperature 98.4 [degF] [facility] 01-09-2019 07:10-0400 BP Diastolic 86 mm[Hg] [facility] 01-09-2019 07:10-0400 BP Systolic 172 mm[Hg] [facility] 01-09-2019 07:10-0400 Pulse (Heart Rate) 53 /min [facility] 01-09-2019 07:10-0400 Pulse Oximetry 93 % [facility] 01-09-2019 07:10-0400 Respiratory Rate 18 /min [facility] 01-09-2019 05:48-0400 BMI (Body Mass Index) 32.73 kg/m2 [facility] 01-09-2019 05:48-0400 Body weight 94.8 kg [facility] 01-09-2019 05:48-0400 Height 170.2 cm [facility] 01-09-2019 05:46-0400 Body Temperature 97.7 [degF] [facility] 11-19-2018 17:54-0400 BP Diastolic 79 mm[Hg] [facility] 11-19-2018 17:54-0400 BP Systolic 125 mm[Hg] [facility] 11-19-2018 17:54-0400 Pulse (Heart Rate) 64 /min [facility] 11-19-2018 17:54-0400 Pulse Oximetry 99 % [facility] 11-19-2018 17:54-0400 Respiratory Rate 18 /min [facility] 11-19-2018 15:07-0400 Height 170.2 cm [facility] 11-19-2018 15:06-0400 Body Temperature 98.6 [degF] [facility] 01-17-2018 16:00-0400 BMI (Body Mass Index) 34.8 kg/m2 Ritesh Choudhary [facility] 01-17-2018 16:00-0400 Body Temperature 98.01 [degF] Ritesh Choudhary [facility] 01-17-2018 16:00-0400 BP Diastolic 76 mm[Hg] [facility] 01-17-2018 16:00-0400 BP Systolic 121 mm[Hg] [facility] 01-17-2018 16:00-0400 Height 167.6 cm [facility] 01-17-2018 16:00-0400 Pulse (Heart Rate) 83 /min [facility] 01-17-2018 16:00-0400 Pulse Oximetry 98 % [facility] 01-17-2018 16:00-0400 Respiratory Rate 16 /min [facility] 01-17-2018 16:00-0400 Weight 97.8 kg [facility] 07-14-2017 10:35-0500 BMI (Body Mass Index) 34.81 kg/m2 [facility] 07-14-2017 10:35-0500 Body Temperature 98.1 [degF] [facility] 07-14-2017 10:35-0500 BP Diastolic 88 mm[Hg] [facility] 07-14-2017 10:35-0500 BP Systolic 149 mm[Hg] [facility] 07-14-2017 10:35-0500 Height 167.6 cm [facility] 07-14-2017 10:35-0500 Pulse (Heart Rate) 63 /min [facility] 07-14-2017 10:35-0500 Pulse Oximetry 98 % [facility] 07-14-2017 10:35-0500 Respiratory Rate 16 /min [facility] 07-14-2017 10:35-0500 Weight 97.84 kg [facility] 06-14-2017 16:31-0500 BMI (Body Mass Index) 33.89 kg/m2 [facility] 06-14-2017 16:31-0500 Body Temperature 98.01 [degF] [facility] 06-14-2017 16:31-0500 BP Diastolic 86 mm[Hg] [facility] 06-14-2017 16:31-0500 BP Systolic 128 mm[Hg] [facility] 06-14-2017 16:31-0500 Height 167.6 cm [facility] 06-14-2017 16:31-0500 Pulse (Heart Rate) 70 /min [facility] 06-14-2017 16:31-0500 Pulse Oximetry 98 % Ritesh Choudhary [facility] 06-14-2017 16:31-0500 Respiratory Rate 16 /min Ritesh Choudhary [facility] 06-14-2017 16:31-0500 Weight 95.25 kg Ritesh Choudhary [facility] 12-09-2016 17:04-0400 BMI (Body Mass Index) 33.2 kg/m2 Ritesh Choudhary [facility] Work Phone: 12-09-2016 17:04-0400 Body Temperature 97.9 [degF] Ritesh Choudhary [facility] Work Phone: 12-09-2016 17:04-0400 BP Diastolic 80 mm[Hg] Ritesh Choudhary [facility] Work Phone: 12-09-2016 17:04-0400 BP Systolic 120 mm[Hg] Ritesh Choudhary [facility] Work Phone: 12-09-2016 17:04-0400 Height 170.2 cm Ritesh Choudhary [facility] Work Phone: 12-09-2016 17:04-0400 Pulse (Heart Rate) 73 /min Ritesh Choudhary [facility] Work Phone: 12-09-2016 17:04-0400 Pulse Oximetry 97 % Ritesh Choudhary [facility] Work Phone: 12-09-2016 17:04-0400 Respiratory Rate 16 /min Ritesh Choudhary [facility] Work Phone: 12-09-2016 17:04-0400 Weight 96.16 kg Ritesh Choudhary [facility] Work Phone: Encounters Encounter Date Encounter Type Care Provider Facility Start: 01-24-2024 End: 01-24-2024 Office outpatient new 30 minutes Randal Duckworth DPM Work Phone: [facility] Comment on above: Plantar fasciitis of left foot (Primary Dx); Equinus contracture of ankle; Left foot pain Start: 01-24-2024 End: 01-28-2024 ambulatory PAGE RODRIGUEZ [facility] Start: 11-03-2023 End: 11-03-2023 ambulatory PAGE Roth [facility] Start: 11-03-2023 End: 11-03-2023 Encounter for general adult medical examination without abnormal findings PAGE L [facility] Start: 03-18-2023 End: 03-19-2023 ambulatory PAGE Roth [facility] Start: 03-18-2023 End: 03-19-2023 Encounter for general adult medical examination without abnormal findings PAGE Roth [facility] Start: 09-16-2022 Encounter for genera l adult medical examination without abnormal findings PAGE [facility] Start: 09-16-2022 End: 09-16-2022 Office outpatient visit 25 minutes Kalin Feng PA-C Work Phone: [facility] Comment on above: Folliculitis (Primar y Dx); Healthcare maintenance; Dyslipidemia Start: 09-16-2022 End: 09-16-2022 Patient encounter status Kalin Feng PA-C Work Phone: [facility] Work Phone: Start: 04-21-2022 Office outpatient vi sit 25 minutes Page Rodriguez Work Phone: [facility] Work Phone: Start: 04-21-2022 ambulatory Mr. Kalin roth Lucianokleber Facility:[id number] Start: 08-03-2021 Rx Renewal Page Roth Oberha user Work Phone: [facility] Work Phone: Start: 07-28-2021 Rx Renewal Page Stephany Oberha user Work Phone: [facility] Work Phone: Start: 03-13-2021 Patient encounter procedure Me ania Rodriguez Work Phone: [facility] Work Phone: Start: 01-03-2021 Chart Update Page L Oberha user Work Phone: [facility] Work Phone: Start: 12-30-2020 Current tobacco non- user cad cap copd pv dm Page Roth Shahlaer Work Phone: [facility] Work Phone: Start: 07-30-2020 End: 07-30-2020 Orders Only [place] Pedro Work Phone: [facility] Start: 01-15-2019 End: 01-15-2019 Emergency department patient visit Erick Denise Work Phone: [facility] Start: 01-09-2019 End: 01-09-2019 Emergency department patient visit Gabino Cyr Bre Work Phone: [facility] Start: 11-19-2018 End: 11-19-2018 Emergency department patient visit Diallo Carranza Work Phone: [facility] Start: 02-10-2018 End: 02-10-2018 Office outpatient visit 10 minutes Enoc Watts Work Phone: [facility] Comment on above: Partial hamstring te ar, right, subsequent encounter (Primary Dx) Start: 01-17-2018 End: 01-17-2018 Office outpatient visit 25 minutes Ritesh Choudhary Work Phone: [facility] Comment on above: Mixed hyperlipidemia (Primary Dx); Gastroesophageal reflux disease, esophagitis presence not specified; Obesity, Class I, BMI 30-34.9 Start: 01-17-2018 End: 01-17-2018 Office outpatient visit 15 minutes Enoc Watts Work Phone: [facility] Comment on above: Hamstring injury, ri ght, initial encounter (Primary Dx) Start: 07-14-2017 Office/outpatient vi sit, est, level 3 Ritesh Choudhary Work Phone: [facility] Start: 06-14-2017 Office/outpatient vi sit, est, level 4 Ritesh Choudhary Work Phone: [facility] Start: 12-09-2016 Office/outpatient vi sit, est, level 2 Ritesh Choudhary Work Phone: [facility] Procedures Date Procedure Procedure Detail Performing Clinician Start: 03-18-2023 Basic metabolic 2000 panel - Serum or Plasma PAGE OBERHAUSER Start: 03-18-2023 CBC panel - Blood by Automated count PAGE OBERHAUSER Start: 03-18-2023 Hemoglobin A1c/Hemoglobin.total in Blood PAGE OBERHAUSER Start: 03-18-2023 Hepatic function 200 0 panel - Serum or Plasma PAGE OBERHAUSER Start: 03-18-2023 Lipid panel PAGE KALEN DELFINA Start: 03-18-2023 PROSTATE SPECIFIC AN TIGEN, SCREEN PAGE OBERHAUSER Start: 03-18-2023 TSH WITH REFLEX TO F REE T4 IF ABNORMAL PAGE OBERHAUSER Start: 08-06-2020 Lipid 1996 panel - S mundo or Plasma Kalin Feng PA-C Work Phone: Start: 01-15-2019 CT of abdomen and pelvis Erick Powerss Work Phone: Start: 01-15-2019 CBC, EDIF, PLATELET Chr is Borisodis Work Phone: Start: 01-15-2019 Creatinine blood Erick Escalanteodis Work Phone: Start: 01-15-2019 Culture bacterial quanttative colony count urine Erick Escalanteodis Work Phone: Start: 01-15-2019 Urinalysis microscopic only Erick Haysapodis Work Phone: Start: 01-15-2019 URINALYSIS, MACRO Erick Haysapodis Work Phone: Start: 01-09-2019 Urinalysis microscopic only Gabino G Escue Work Phone: Start: 01-09-2019 URINALYSIS, MACRO Dai en G Escue Work Phone: Start: 01-09-2019 CT of abdomen and pelvis Gabino G Escue Work Phone: Start: 01-09-2019 CBC, EDIF, PLATELET Gianluca phen G Bre Work Phone: Start: 01-09-2019 Creatinine blood Eyadhe n Ger Díaz Work Phone: Start: 11-19-2018 CT of entire head Diallo Carranza Work Phone: Start: 11-19-2018 Basic metabolic pane l calcium total Diallo Carranza Work Phone: Start: 11-19-2018 CBC, EDIF, PLATELET Naren larry Carranza Work Phone: Start: 11-19-2018 Prothrombin time Diallo Carranza Work Phone: Start: 11-19-2018 Thromboplastin time partial plasma/whole blood Diallo Carranza Work Phone: Start: 05-16-2015 Colonoscopy Ritesh Choudhary No history of surgery Page Rodriguez Work Phone: Plan of Treatment Date Care Activity Detail Author Start: 08-06-2025 Lipid panel Lipid Panel [facility] Start: 05-16-2025 Screening colonoscopy COLONOSCOPY O [facility] Start: 05-16-2025 Screening for malign ant neoplasm of colon [facility] Start: 11-02-2024 History and physical examination, annual for health maintenance Wellness Visit [facility] Start: 02-14-2024 End: 02-14-2024 Patient encounter procedure 02/14/2024 3:45 PM EDT Office Visit [facility] [address] [place] [address] Randal Duckworth, DOMO [address] [place] [address] [facility] Start: 01-15-2024 COVID-19 Vaccine ( season) COVID-19 Vaccine () [facility] Start: 01-15-2024 Influenza vaccination Influenza Vacc ine (#1) [facility] Start: 09-20-2023 End: 09-20-2023 Patient encounter procedure 09/20/2023 8:20 AM EDT Office Visit [facility] [address] [place] [id number] Page Rodriguez DO [address] [address] [facility] Start: 01-14-2023 Influenza vaccination Influenz a Vaccine (Season Ended) [facility] Start: 09-16-2022 End: 09-17-2023 Basic metabolic 2000 panel - Serum or Plasma Basic Metabolic Panel Lab Routine Healthcare maintenance Expected: 09/16/2022 (Approximate), Expires: 09/17/2023 [facility] Work Phone: Comment on above: Expected: 09/16/2022 (Approximate), Expires: 09/17/2023 Start: 09-16-2022 End: 09-17-2023 CBC panel - Blood by Automated count CBC Lab Routine Healthcare maintenance Expected: 09/16/2022 (Approximate), Expires: 09/17/2023 [facility] Service [facility] Work Phone: Comment on above: Expected: 09/16/2022 (Approximate), Expires: 09/17/2023 Start: 09-16-2022 End: 09-17-2023 Hemoglobin A1c/Hemoglobin.total in Blood Hemoglobin A1C Lab Routine Healthcare maintenance Expected: 09/16/2022 (Approximate), Expires: 09/17/2023 [facility] Work Phone: Comment on above: Expected: 09/16/2022 (Approximate), Expires: 09/17/2023 Start: 09-16-2022 End: 09-17-2023 Hepatic function 2000 panel - Serum or Plasma Hepatic Function Panel Lab Routine Healthcare maintenance Expected: 09/16/2022 (Approximate), Expires: 09/17/2023 [facility] Work Phone: Comment on above: Expected: 09/16/2022 (Approximate), Expires: 09/17/2023 Start: 09-16-2022 End: 09-17-2023 Lipid 1996 panel - Serum or Plasma Lipid Panel Lab Routine Healthcare maintenance Expected: 09/16/2022 (Approximate), Expires: 09/17/2023 [facility] Work Phone: Comment on above: Expected: 09/16/2022 (Approximate), Expires: 09/17/2023 Start: 09-16-2022 End: 09-17-2023 Prostate specific Ag [Mass/volume] in Serum or Plasma Prostate Specific Antigen, Screen Lab Routine Healthcare maintenance Expected: 09/16/2022 (Approximate), Expires: 09/17/2023 [facility] Work Phone: Comment on above: Expected: 09/16/2022 (Approximate), Expires: 09/17/2023 Start: 09-16-2022 End: 09-17-2023 TSH with reflex to Free T4 if abnormal TSH with reflex to Free T4 if abnormal Lab Routine Healthcare maintenance Expected: 09/16/2022 (Approximate), Expires: 09/17/2023 [facility] Work Phone: Comment on above: Expected: 09/16/2022 (Approximate), Expires: 09/17/2023 Start: 08-03-2021 COVID-19 Vaccine (3 - Booster for Indigo series) COVID-19 Vaccine (3 - Booster for Indigo series) [facility] Start: 01-15-2020 Influenza vaccinatio n given Sequential Influenza Vaccine (#1) [facility] Start: 05-16-2019 Tetanus vaccination [facility] Start: 01-17-2019 Depression screening using PHQ-9 (Patient Health Questionnaire 9) score Depression Screening/Follow-Up (PHQ-2/9) [facility] Start: 01-14-2019 Influenza vaccination INFLUENZA VACC INE (#1) [facility] Start: 05-22-2018 Influenza vaccination SEQUENTI AL INFLUENZA VACCINE (#1) [facility] Comment on above: Postponed from 01/14 (Not Indicated) Start: 02-13-2018 End: 02-13-2018 Ambulatory 02/13/2018 Office Visit Sports Medicine Enoc Watts MD [address] [place] [address] [phone] [facility] Start: 01-17-2018 End: 01-17-2018 Ambulatory 01/17/2018 Office Visit Primary Care Ritesh Choudhary MD [address] [place] [address] [phone] [facility] Start: 01-14-2018 Influenza vaccination SEQUENTI AL INFLUENZA VACCINE (#1) [facility] Start: 06-11-2017 End: 12-09-2017 Lipid panel Lipid Panel Routine Hyperlipidemia, unspecified hyperlipidemia type Expected: 06/11/2017, Expires: 12/09/2017 [facility] Work Phone: Start: 06-06-2017 Ambulatory 06/06/2017 Off ice Visit Primary Care Ritesh Choudhary MD [address] [place] [address] [phone] [facility] Start: 2017 Administration of he rpes zoster vaccine Zoster Vaccines (1 of 2) [facility] Start: 2017 Colonoscopy COLON CANCER S CREENING DISCUSSION [facility] Start: 2017 Prostate specific antigen measurement PROSTATE CANCER SCREENING DISCUSSION [facility] Start: 2017 Screening for malign ant neoplasm of colon [facility] Start: 2017 Zoster vaccine hzv l candace for subcutaneous use ZOSTER (SHINGLES) VACCINE (1 of 2) [facility] Start: 2017 Zoster Vaccines (1 of 2) Zoster Vacc maria esther (1 of 2) [facility] Start: 01-14-2017 SEQUENTIAL INFLUENZA VACCINE (#1) SEQUENTIAL INFLUENZA VACCINE (#1) [facility] Work Phone: Start: 2007 Fasting lipid profile LIPID SCREENIN G [facility] Start: 1989 DTaP/Tdap/Td Vaccine s (1 - Tdap) DTaP/Tdap/Td Vaccines (1 - Tdap) [facility] Start: 1986 Third diphtheria, tetanus and acellular pertussis (DTaP) vaccination TDAP (ADULT) [facility] Start: 1985 Hepatitis C antibody , confirmatory test Hepatitis C Screening [facility] Start: 1985 [facility]atitis [facility]: [facility] Tetanus vaccination [facility] Start: 1983 COVID-19 Vaccine (1 of 2) COVID-19 Vaccine (1 of 2) [facility] Start: 1982 HIV screening HIV Screening [facility] Start: 02-26-1980 HIV screening HIV SCREENING [facility] Start: 1970 History and physical examination, annual for health maintenance Wellness Visit [facility] Start: 02-26-1968 MMR Vaccines (1 of 1 - Standard series) MMR Vaccines (1 of 1 - Standard series) [facility] Start: 1967 Hepatitis B Vaccines (1 of 3 - 3-dose series) Hepatitis B Vaccines (1 of 3 - 3-dose series) [facility] Start: 1967 HIV screening HIV Screening [facility] Start: 1967 Prostate specific antigen measurement PSA Level [facility] Start: 1967 Screening for malign ant neoplasm of colon [facility] Start: 1967 TETANUS EVERY 10 YR TETANUS EVERY 10 YR [facility] Work Phone: Start: 1967 Yearly Adult Physical Yearly Adult P [facility] Bacteria identified Cx Nom (U) URINE CULTURE Microbiology Routine 01/15/2019 1:10 PM EDT [facility] CT of abdomen and pelvis [facility] CT of entire head CT HEAD WITHOU T CONTRAST Imaging STAT 11/19/2018 3:34 PM EDT [facility] Immunizations Immunization Date Immunization Notes Care Provider Leonidas bryan 06-08-2021 Pfizer-BioNTech COVID-19 Vacc 30 MCG/0.3ML Intramuscular Suspension Page [employer] Work Phone: [facility] Work Phone: 11-13-2020 Indigo COVID-19 Vaccine 0.5 ML Intramuscular Suspension Page [employer] Work Phone: [facility] Work Phone: 2019 influenza, injectabl e, quadrivalent, preservative free Pagelenora Rodriguez Work Phone: - [facility] Work Phone: Comment on above: Series: 2019 influenza virus vaccine, unspecified formulation Kalin Feng PA-C Work Phone: [facility] Work Phone: Payers Date Payer Category Payer Unknown xxxxxxxxxxxx [id number] 2004 Unknown [place] [employer] OUT OF STATE [facility] [id number] 2004-Present [id number] 2004 Unknown 2004 Unknown [id number] 1967 Unknown [id number] 1967 Unknown [id number] 1967 Unknown [id number] 1967 Unknown [id number] 1967 Unknown [id number] Social History Date Type Detail Facility Start: 08-14-2017 End: 01-24-2024 Tobacco smoking status MDIS Never smoker [employer] Work Phone: Start: 1965 Sex Assigned At Not on file [employer] Work Phone: Start: 10-15-2018 End: 01-09-2019 Alcohol intake No [facility] Start: 03-03-2018 End: 01-24-2024 Tobacco use and exposure Never used [facility] Start: 03-03-2018 End: 01-24-2024 Alcohol intake Current non-drinker of alcohol (finding) [facility] Start: 10-15-2018 Social alcohol use Social alcohol use [facility] Work Phone: Start: 09-06-2022 End: 09-16-2022 Exposure to SARS-CoV-2 (event) Not sure [facility] PHQ-2 Score 0 [facility] Start: 02-10-2018 Gender identity Identifies as male gender (finding) [facility] Start: 02-10-2018 Sexual orientation Heterosexual (finding) [facility] Instructions 01-24-2024 Patient Instructions Note Date & Type Note Facility 01-24-2024 Instructions Carissa Corona, TECHNOLOGIST - 01/24/2024 3:34 PM EDT Images from the original note were not included. PLANTAR FASCIITIS: Definition: The plantar fascia is a ligament, like a band running from your heel to the ball of your foot. This band pulls on the heel bone, raising the arch of your foot as it pushes off the ground. However, if your foot moves incorrectly, the plantar fascia may become strained. The fascia may swell and its tiny fibers may begin to fray; causing plantar fasciitis. Symptoms: The bottom of your foot may hurt when you stand, especially first thing in the morning. Pain uaually occurs on the inside of the foot, near where your heel and arch meet. Pain may lessen after a few steps, but usually comes back after rest or prolonged movement. Treatment: Stretching Icing (A bag of frozen peas/ veggies applied to the back of the heel) Good supportive shoes (New Balance or Asics) with a heel lift or open back shoes Refrain from exercising (walking, treadmill, high impact aerobics, etc.) until your pain resolves DO NOT GO BAREFOOT, even around the house. Overview The driving force/ cause of plantar fasciitis (heel pain) is often a tight Achilles tendon or heel cord. The ability to run/ walk becomes altered, causing inflammation, which leads to pain. Fortunately, heel pain can be treated successfully in most cases with the following steps. Stretching Most important step stretch, stretch, stretch Stretching should consist of: 5-6 sets of 15-20 second stretches (each leg) Stretch Positions Injured foot against wall/ object (image 1) Injured foot behind your body (image 2) Types of stretches First stretch should be with the knee fully extended Second stretch, the knee should be bent slightly Sit in a chair Extend/ lock knee and pull foot back until you feel tension in your calf Hold that position for 20 seconds, then relax Repeat process for 15 minutes Do this stretching 3 times a day Do this stretch before you even get out of bed You can use household items to assist with the stretching (towel, elastic band, belt, rope, etc.) Ice Place on bottom of injured foot Apply 20 minutes on, 20 minutes off, REPEAT Examples: Frozen vegetables, frozen water bottle Anti- inflammatories NSAIDS/ Steroids are helpful in treating plantar fasciitis, recommended Anti- inflammatory dose is 800mg Ibuprofen, twice daily. Discuss with your physician prior to starting medication Shoe Modification Good supportive tennis shoes are very important for recovery (Ex: Asics, Tafoya, Saucony, New Balance) Avoid flip- flops or barefoot walking Shoes older than >12 months should be replaced Orthotics/ Arch Supports Depending on your foot type (high arch, flat foot) you may need extra support Discuss with your physician best recommended treatment plan Exercise Daily exercise is important, but should be modified during treatment plan Limit/ Alter total mileage when running/ walking Incorporate low-impact activities such as biking/ swimming/ weights ABOUT YOUR INJECTION: You have been given an injection of a combination of local anesthetics (Bupivicaine HCL/ Marcaine and Lidocaine) and a steroid solution (Methylprednisolone acetate/ Depo-Medrol). The steroid solution is designed to decrease the inflammation in the tissues after a couple of days, while the local anesthesia shouldshould give you some measure of immediate pain relief. The combination of medications is used for diagnostic purposes. You may expect the area to be numb for a period of one to several hours. However, after the numbness wears off, you will experience one of the following three sensations: You will continue to have relief of the pain you experienced prior to the injection. Your pre-existing pain will return, and no change will take place. You may, in fact, have more pain than you did prior to the injection, after the local anesthetic wears off. If you have more pain, DON'T PANIC! This pain is an irritation from the cortisone preparation which will resolve as soon as the steroids are absorbed into the tissue. Unfortunately, there is no way for us to predict how quickly or slowly your body will absorb the steroid. Everyone's body absorbs medication at a different rate. On the average, however, most people will get good relief in 48-72 hours. For relief, use ice comresses, and some sort of anti-inflammatory medication such as: Aspirin, Motrin, Nuprin or Advil to relieve the pain. Tylenol, however, is not and anti- inflammatory medication and may be less effective. You should apply ice to the area for approximately 15-20 minutes at a time. You may repeat this as often as necessary. If the increased pain, swelling, or redness persists for more than 5 days after the injection, or if you have any questions, please don't hesitate to call us. This injection may raise your blood sugar if you have diabetes. You must monitor your blood sugar 4 times a day and adjust your insulin as needed. If you do not take insulin and if yout blood sugar elevates to over 250, you must contact your primary care doctor or go to the emergency room. Please do not hesitate to call us with any questions or concerns. documented in this encounter [facility] Progress note 01-24-2024 Note Date & Type Note Facility 01-24-2024 Note NEW Patient Visit Randal Duckworth DPM Patient Name: Matilda Escalera. . Date of : 1965, 58 y.o.. Gender: male. Subjective: Patient is a pleasant 58-year-old male who presents to clinic concerned about left foot heel pain. Patient states that he has a history of plantar fasciitis. Reports that this pain has been ongoing for the last 8 months. Denies any trauma or injury. Describes the pain as sharp in nature when he steps out of bed in the morning. No other pedal complaints at this time. Denies fevers, chills, nausea, vomiting, chest pain, shortness of breath, or any other constitutional symptoms. Past Medical History: Diagnosis Date Abdominal pain [facility] Acid reflux [facility] Arthritis Right shoulder DDD (degenerative disc disease), cervical [facility] Depression Ganglion and cyst of synovium, tendon [facility] bursa [facility] Hydronephrosis with obstructing calculus 2018 Left-mild 5 mm stone proximal Hypercholesteremia [facility] Lumbar disc disease 2016 L4/L5 Male erectile disorder [facility] Nephrolithiasis 2018 Left 5 mm with mild proximal hydronephrosis, bilateral renal stones up to 4 mm Nodule of right lung [facility] 3mm Obesity [facility] Spondylolisthesis at L4-L5 level 2016 Spondylolysis of lumbosacral region 2016 L4-L5 grade 1 Tear of right hamstring 01/16/2018 Vitamin D deficiency [facility] Past Surgical History: Procedure Laterality Date Amblyopia COLONOSCOPY 09/15/2015 COLONOSCOPY 2008 Ears Cosmetic, Pinned back EXC BONE SPUR UPPER EXTREMITY Shoulder GANGLION CYST EXCISION SHOULDER SURGERY Right [facility] TONSILLECTOMY Social History Socioeconomic History Marital status: Tobacco Use Smoking status: Never Smokeless tobacco: Never Vaping Use Vaping status: Never Used Substance and Sexual Activity Alcohol use: No Drug use: No Sexual activity: Yes Partners: Female Physical Examination: BP (!) 143/87 (BP Location: Left arm, Patient Position: Sitting, BP Cuff Size: Adult) Pulse 75 Temp 100.3 degrees F (37.9 degrees C) (Temporal) General Appearance: Alert, cooperative, no distress, appears stated age. Podiatric Exam Vascular: DP and PT pulses are palpable 2/4. Capillary refill time is less than 3 secs to distal digits. Skin temperature is warm to warm from proximal tibial tuberosity to distal digit. No appreciable edema to bilateral foot or ankle Neurological: Gross sensation is intact. Protective sensation is intact. Dermatologic: No open wounds or ulcer Interdigital spaces are clean dry and intact. Musculoskeletal: Pain on palpation to the medial calcaneal tubercle, left heel. Pain along the medial band of plantar fascia. Ankle joint dorsiflexion is reduced with the knee extended and full with knee flexion. Ankle joint range of motion is intact. Muscle strength is 5/5 to dorsiflexors, plantar flexors, inverters and everters. Compartments soft and compressible. No calf pain Diagnoses: 1. Plantar fasciitis of left foot 2. Equinus contracture of ankle 3. Left foot pain Imaging: Left foot 3 views weightbearing radiographs were ordered and interpreted as follows: No acute fractures or dislocations noted. Joint spaces are within normal limits. Plantar calcaneal enthesophyte noted. Assessment/Plan: Patient was seen and evaluated. Discussed all clinical findings. I ordered, interpreted, and discussed left foot radiographic findings with patient as noted above. Discussed conservative treatment options for plantar fasciitis including stretching, icing, anti-inflammatories, and good supportive shoes. I illustrated proper stretching techniques in the office. Advised on proper supporting shoes. I prescribed an oral anti-inflammatory, meloxicam, to help alleviate pain and inflammation with ambulation. This was sent to patient's pharmacy. Recommended a steroidal injection to help alleviate pain and inflammation at the heel site. Patient was agreeable to proceed with this. See procedure below. PROCEDURE: Plantar fascial injection, left foot The medial aspect of the left heel was prepped with alcohol. Following, a 2 cc of 1: 1 mix of Kenalog 40 mg and 0.5% Marcaine plain was injected into the medial aspect of the left heel. Patient tolerated the injection well. A Band-Aid was applied at the injection site. Patient expressed some pain relief following the procedure. All questions were answered to patient satisfaction. Patient understands to call with any questions or concerns. Follow-up in 3 weeks for reevaluation. This note was partially created using voice recognition software and is inherently subject to errors including those of syntax and sound-alike substit (more content not included)... [facility] History of Present illness Narrative 01-24-2024 Randal Duckworth DPM - 01/24/2024 3:15 PM EDT Note Date & Type Note Facility 01-24-2024 History of Presen t illness Narrative Images from the original note were not included. NEW Patient Visit Randal Duckworth DPM Patient Name: Matilda Escalera. . Date of : 1965, 58 y.o.. Gender: male. Subjective: Patient is a pleasant 58-year-old male who presents to clinic concerned about left foot heel pain. Patient states that he has a history of plantar fasciitis. Reports that this pain has been ongoing for the last 8 months. Denies any trauma or injury. Describes the pain as sharp in nature when he steps out of bed in the morning. No other pedal complaints at this time. Denies fevers, chills, nausea, vomiting, chest pain, shortness of breath, or any other constitutional symptoms. Past Medical History: Diagnosis Date Abdominal pain [facility] Acid reflux [facility] Arthritis Right shoulder DDD (degenerative disc disease), cervical [facility] Depression Ganglion and cyst of synovium, tendon and bursa [facility] Hydronephrosis with obstructing calculus 2018 Left-mild 5 mm stone proximal Hypercholesteremia [facility] Lumbar disc disease 2016 L4/L5 Male erectile disorder [facility] Nephrolithiasis 2018 Left 5 mm with mild proximal hydronephrosis, bilateral renal stones up to 4 mm Nodule of right lung [facility] 3mm Obesity [facility] Spondylolisthesis at L4-L5 level 2016 Spondylolysis of lumbosacral region 2016 L4-L5 grade 1 Tear of right hamstring 01/16/2018 Vitamin D deficiency [facility] Past Surgical History: Procedure Laterality Date Amblyopia COLONOSCOPY 09/15/2015 COLONOSCOPY 2007 Ears Cosmetic, Pinned back EXC BONE SPUR UPPER EXTREMITY Shoulder GANGLION CYST EXCISION SHOULDER SURGERY Right [facility] TONSILLECTOMY Social History Socioeconomic History Marital status: Tobacco Use Smoking status: Never Smokeless tobacco: Never Vaping Use Vaping status: Never Used Substance and Sexual Activity Alcohol use: No Drug use: No Sexual activity: Yes Partners: Female Physical Examination: BP (!) 143/87 (BP Location: Left arm, Patient Position: Sitting, BP Cuff Size: Adult) Pulse 75 Temp 100.3 F (37.9 C) (Temporal) General Appearance: Alert, cooperative, no distress, appears stated age. Podiatric Exam Vascular: DP and PT pulses are palpable 2/4. Capillary refill time is less than 3 secs to distal digits. Skin temperature is warm to warm from proximal tibial tuberosity to distal digit. No appreciable edema to bilateral foot or ankle Neurological: Gross sensation is intact. Protective sensation is intact. Dermatologic: No open wounds or ulcer Interdigital spaces are clean dry and intact. Musculoskeletal: Pain on palpation to the medial calcaneal tubercle, left heel. Pain along the medial band of plantar fascia. Ankle joint dorsiflexion is reduced with the knee extended and full with knee flexion. Ankle joint range of motion is intact. Muscle strength is 5/5 to dorsiflexors, plantar flexors, inverters and everters. Compartments soft and compressible. No calf pain Diagnoses: 1. Plantar fasciitis of left foot 2. Equinus contracture of ankle 3. Left foot pain Imaging: Left foot 3 views weightbearing radiographs were ordered and interpreted as follows: No acute fractures or dislocations noted. Joint spaces are within normal limits. Plantar calcaneal enthesophyte noted. Assessment/Plan: Patient was seen and evaluated. Discussed all clinical findings. I ordered, interpreted, and discussed left foot radiographic findings with patient as noted above. Discussed conservative treatment options for plantar fasciitis including stretching, icing, anti-inflammatories, and good supportive shoes. I illustrated proper stretching techniques in the office. Advised on proper supporting shoes. I prescribed an oral anti-inflammatory, meloxicam, to help alleviate pain and inflammation with ambulation. This was sent to patient's pharmacy. Recommended a steroidal injection to help alleviate pain and inflammation at the heel site. Patient was agreeable to proceed with this. See procedure below. PROCEDURE: Plantar fascial injection, left foot The medial aspect of the left heel was prepped with alcohol. Following, a 2 cc of 1: 1 mix of Kenalog 40 mg and 0.5% Marcaine plain was injected into the medial aspect of the left heel. Patient tolerated the injection well. A Band-Aid was applied at the injection site. Patient expressed some pain relief following the procedure. All questions were answered to patient satisfaction. Patient understands to call with any questions or concerns. Follow-up in 3 weeks for reevaluation. This note was partially created using voice recognition software and is inherently subject to errors including those of syntax and sound-alike substitutions which may escape proofreading. In such instances, original meaning may be extrapolated by contextual derivation. Randal Duckworth DPM, MS Podiatric Physician & Surgeon documented in this encounter [facility] History of Present illness Narrative 09-16-2022 Millie Rees MA - 09/16/2022 8:10 AM EDTStrinity Feng PA-C - 09/16/2022 8:10 AM EDT Note Date & Type Note Facility 09-16-2022 History of Present illness Narrative Est pt here rash on left side of back. Itching, raised and stinging. Also, requesting screening labs. Subjective Patient ID: Matilda Escalera is a 57 y.o. male who presents for Rash. HPI Patient presents for evaluation of his skin irritation on the left lateral mid back. Patient states the area became inflamed approximate 1 week ago and did form a pustule. Patient expressed exudate from the pustule just yesterday. No other similar lesions reported. No preceding paresthesias or neuralgia. Patient is requesting lab draw for healthcare maintenance purposes. Patient has no other acute complaints at this time. Review of Systems Constitutional: See HPI Integumentary: See HPI Neurologic: See HPI All other systems are negative Objective BP (!) 157/98 Pulse 80 Ht 1.702 m (5' 7 ) Wt 98.4 kg (217 lb) SpO2 96% BMI 33.99 kg/m Physical Exam General: Alert and oriented, No acute distress. Eye: Pupils are equal, round and reactive to light, Normal conjunctiva. HENT: Normocephalic, Neck: Supple Respiratory: Respirations are non-labored Musculoskeletal: Normal ROM and strength Integumentary: Left lateral mid back near the costovertebral angle with a small, slightly raised, erythematous pustule with very localized induration; no other similar lesions; no tenderness in the dermatome distribution on that side Neurologic: Alert, Oriented, Normal sensory, Cranial Nerves II-XII are grossly intact Psychiatric: Cooperative, Appropriate mood & affect. Assessment/Plan Folliculitis: Bactroban written. Healthcare maintenance/dyslipidemia: CBC, CMP, A1c, lipids, and TSH ordered. Follow-up in 1 year or as needed Problem List Items Addressed This Visit Folliculitis - Primary Relevant Medications mupirocin (Bactroban) 2 % ointment Healthcare maintenance Relevant Orders CBC Hemoglobin A1C Hepatic Function Panel Lipid Panel TSH with reflex to Free T4 if abnormal Prostate Specific Antigen, Screen Basic Metabolic Panel Dyslipidemia Final diagnoses: [L73.9] Folliculitis [Z00.00] Healthcare maintenance [E78.5] Dyslipidemia documented in this encounter [facility] Work Phone: History of Present illness Narrative 11-14-2020 Note Date & Type Note Facility 11-14-2020 History of Present illness Narrative Patient presents for evaluation of post Covid cough. Patient was diagnosed with SARS-CoV-2 09 December 2020. Patient had received 1 dose of the vaccine prior to the infection. Patient reports approximately 5 days of illness before resolution of constitutional signs and symptoms. Patient does however, report chronic cough associated with talking. Patient denies subsequent fever, chills, body aches, or other constitutional signs and symptoms.Patient requesting evaluation of skin lesion. Patient reports long history of slightly raised, rough, nontender, nonerythematous skin lesion on the lateral aspect of the left buttocks. Patient reportedly underwent 1 prior cryo procedure and afterwards, the lesion was not destroyed. Patient denies any pain or issues with the lesion. [facility] Work Phone: Chief complaint Narrative - Reported Note Date & Type Note Facility Chief complaint Narrative - Reported Patient here today to be seen for continued cough with hx of having positive Covid-19 2 wks ago.Patient denies any other cold symptoms.Patient states he is on the phone a lot at work and it is difficult with the coughing.Patient denies taking OTC cough syrup. [facility] Work Phone: Evaluation note Note Date & Type Note Facility Evaluation note Diagnosis Folliculitis- Primary Other specified disease of hair and hair follicles Healthcare maintenance Dyslipidemia Other and unspecified hyperlipidemia documented in this encounter [facility] Work Phone: Evaluation note Note Date & Type Note Facility Evaluation note Diagnosis Plantar fasciitis of left foot- Primary Equinus contracture of ankle Left foot pain Pain in soft tissues of limb documented in this encounter [facility] History of Present illness Narrative Note Date & Type Note Facility History of Present illness Narrative Presents for evaluation of URI. Symptoms including cough, congestion, body aches, malaise, and headache have been present for several days and refractory to OTC meds. No fever, chills, nausea, vomiting, abdominal pain, CP, or SOB. No exacerbating factors. Patient tested negative for COVID at home. [facility] Work Phone: Reason for referral (narrative) Consultation (Routine) - Authorized Note Date & Type Note Facility Reason for referral (narrati ve) Specialty Diagnoses / Procedures Referred By Sukhdev davalos Referred To Contact Primary Care Procedures Follow Up In Primary Care Kalin Feng PA-C [address] [facility] [place] [address] Referral ID Status Reason Start Date Expiration Date V isits Requested Visits Authorized [id number] Authorized 09/16/2022 03/15/2023 1 1 [facility] Work Phone: Instructions * Patient Instructions - Ritesh Choudhary MD - 07/14/2017 11:28 AM EST Formatting of this note may be different from the original. Problem List Items Addressed This Visit Respiratory URI (upper respiratory infection) Negative Influenza A , if the cloudy drainage persists or worsens call and we will start an antibiotic. Other Depression, acute Definite improvement in affect overall even though you are processing a viral infection. Suggest that after 2 weeks you are at full effect of the 150mg once a day and that would increase to the 300 XL once a day. The SR or 12 hours dose cannot be taken all at once. Relevant Medications buPROPion (WELLBUTRIN XL) 300 MG 24 hr tablet Other Visit Diagnoses Flu-like symptoms - Primary Relevant Orders POC Influenza A/B (Completed) Depression, unspecified depression type Relevant Medications buPROPion (WELLBUTRIN XL) 300 MG 24 hr tablet in this encounter* Patient Instructions - Ritesh Choudhary MD - 06/14/2017 5:11 PM EST Formatting of this note may be different from the original. Problem List Items Addressed This Visit Digestive GERD (gastroesophageal reflux disease) Pantoprazole 40 mg in am for acid suppression . Try to review the information on GERD and Gastritis. Other Depression, acute Try to focus on what you can change and what you cannot change. Make daily goal and be active as possible. The side effects of the medicaiton Are minimal at best. Some will complain of feeling fuzzy and other of increased ability to sweat. Start with 10 mg once a day for the first week and then increase to a full tablet after 1 weeks. Typically maxi,mum effect in about 3 weeks of the 20 mg pill. 05/10/2017: Clinical lab testing performed in the emergency department: CBC: WBC 9.0 RBC 5.09. Hemoglobin 15.1 hematocrit 44.0. Red blood cells indices all within normal limits. Platelet count 197,000 white blood cell differential within normal limits slight increase in absolute monocytes. Clinicalchemistry: Glucose 89. BUN 12. Creatinine 0.9. Estimated GFR greater than 60. Sodium level 141. Potassium 3.7. Chloride 109 (98-107). Bicarb 24.8. Liver function tests are all within normal limits. Lipase 25 (8-57). Urinalysis: Specific gravity, 1.013. Protein, negative. Glucose, negative. Ketones,negative. Bilirubin, negative. Blood, 1+. RBC, 03 (0-3. Summary: CBC reveals no signs of infection no signs of anemia. Normal platelet count slight increase in absolute monocytes consistent with possible early recent exposure to a viral process. General chemistry suggests no evidence of elevated glucose with normal glucose normal kidney function normal liver function. Only abnormality is a slight increase in serum chloride level which is seen in individuals who might be producing a little too much acid. Lipase was ordered which generally is a test for ruling out pancreatitis or irritation of the small bowel and it was well within normal limits. Urinalysis showed no signs of dehydration. Trace of blood in the urinalysis with microscopic evaluation of 0-3 RBCs per high-powered field is a nonsignificant finding. 11/29/2016: Total cholesterol 198. Triglycerides 192. HDL 41. LDL 118. VLDL 38. Non-HDL cholesterol 157. Summary: Total cholesterol 198 slightly elevated. Triglycerides 192 above the goal of less than 150suggested tension to increase activity and reduction of simple carbohydrates. HDL is 41 the goal being for greater than 45. LDL is 110 goal being less than 100. Non-HDL total is 157 goal being less than 130 suggest increased attention to a reduction of total calories as well as simple carbohydrates. Suggest increase in activity making sure that he maintain exercise plan consistent with more than 150 minutes per week at target heart rate. Typically: Consideration for increase in drug intervention when non-HDL is greater than 160 and HDLis less than 45. Learning About Mood Disorders What are mood disorders? Mood disorders are medical problems that affect how you feel. They can impact your moods, thoughts,and actions. Mood disorders include: Depression. This causes you to feel sad and hopeless for much of the time. Bipolar disorder. This causes extreme mood changes from manic episodes of very high energy to extreme lows of depression. Seasonal affective disorder (SAD). This is a type of depression that affects you during the same season each year. Most often people experience SAD during the fall and winter months when days are shorter and there is less light. What are the symptoms? Depression You may: Feel sad or hopeless nearly every day. Lose interest in or not get pleasure from most daily activities. You feel this way nearly every day. Have low energy, changes in your appetite, or changes in how well you sleep. Have trouble concentrating. Think about and suicide. Keep the numbers for these national suicide hotlines: 7-053-805-TALK( ) and 6-970-FBFJODA ( ). If you or someone you know talks about suicideor feeling hopeless, get help right away. Bipolar disorder Symptoms depend on your mood swings. You may: Feel very happy, energetic, or on edge. Feel like you need very little sleep. Feel overly self-confident. Do impulsive things, such as spending a lot of money. Feel sad or hopeless. Have racing thoughts or trouble thinking and making decisions. Lose interest in things you have enjoyed in the past. Think about and suicide. Keep the numbers for these national suicide hotlines: 6-219-835-TALK( ) and 6-669-ARJQAKL ( ). If you or someone you know talks about suicideor feeling hopeless, get help right away. Seasonal affective disorder (SAD) Symptoms come and go at about the same time each year. For most people with SAD, symptoms come during the winter when there is less daylight. You may: Feel sad, grumpy, isidro, or anxious. Lose interest in your usual activities. Eat more and crave carbohydrates, such as bread and pasta. Gain weight. Sleep more and feel drowsy during the daytime. How are mood disorders treated? Mood disorders can be treated with medicines or counseling, or a combination of both. Medicines for depression and SAD may include antidepressants. Medicines for bipolar disorder may include: Mood stabilizers. Antipsychotics. Benzodiazepines. Counseling may involve cognitive-behavioral therapy. It teaches you how to change the ways you think and behave. This can help you stop thinking bad thoughts about yourself and your life. Light therapy is the main treatment for SAD. This therapy uses a special kind of lamp. You let the lamp shine on you at certain times, usually in the morning. This may help your symptoms during the months when there is less sunlight. Healthy lifestyle Healthy lifestyle changes may help you feel better. Get at least 30 minutes of exercise on most days of the week. Walking is a good choice. Eat a healthy diet. Include fruits, vegetables, lean proteins, and whole grains in your diet each day. Keep a regular sleep schedule. Try for 8 hours of sleep a night. Find ways to manage stress, such as relaxation exercises. Avoid alcohol and illegal drugs. Follow-up care is a harris part of your treatment and safety. Be sure to make and go to all appointments, and call your doctor if you are having problems. It's also a good idea to know your test resultsand keep a list of the medicines you take. Where can you learn more? Log into your personal health record on [email or web address] and enter Z126 in the Education box to learn more about Learning About Mood Disorders. Current as of: December 09, 2015 Content Version: 11.2 5221-4170 [employer]. Care instructions adapted under license by your healthcare professional. If you have questions about a medical condition or this instruction, always ask your healthcare professional. [employer] disclaims any warranty or liability for your use of this information. Gastroesophageal Reflux Disease (GERD): Care Instructions Your Care Instructions Gastroesophageal reflux disease (GERD) is the backward flow of stomach acid into the esophagus. Theesophagus is the tube that leads from your throat to your stomach. A one-way valve prevents the stomach acid from moving up into this tube. When you have GERD, this valve does not close tightly enough. If you have mild GERD symptoms including heartburn, you may be able to control the problem with antacids or xudt-klc-zmfzphh medicine. Changing your diet, losing weight, and making other lifestyle changes can also help reduce symptoms. Follow-up care is a harris part of your treatment and safety. Be sure to make and go to all appointments, and call your doctor if you are having problems. It s also a good idea to know your test resultsand keep a list of the medicines you take. How can you care for yourself at home? Take your medicines exactly as prescribed. Call your doctor if you think you are having a problem with your medicine. Your doctor may recommend bwgw-zjn-xutdnyx medicine. For mild or occasional indigestion, antacids, such as Tums, Gaviscon, Mylanta, or Maalox, may help. Your doctor also may recommend qwzv-tfy-yuwxgtq acid reducers, such as Pepcid AC, Tagamet HB, Zantac 75, or Prilosec. Read and follow all instructions on the label. If you use these medicines often, talk with your doctor. Change your eating habits. It s best to eat several small meals instead of two or three large meals. After you eat, wait 2 to 3 hours before you lie down. Chocolate, mint, and alcohol can make GERD worse. Spicy foods, foods that have a lot of acid (like tomatoes and oranges), and coffee can make GERD symptoms worse in some people. If your symptoms are worse after you eat a certain food, you may want to stop eating that food to see if your symptoms get better. Do not smoke or chew tobacco. Smoking can make GERD worse. If you need help quitting, talk to your doctor about stop-smoking programs and medicines. These can increase your chances of quitting for good. If you have GERD symptoms at night, raise the head of your bed 6 to 8 inches by putting the frame on blocks or placing a foam wedge under the head of your mattress. (Adding extra pillows does not work.) Do not wear tight clothing around your middle. Lose weight if you need to. Losing just 5 to 10 pounds can help. When should you call for help? Call your doctor now or seek immediate medical care if: You have new or different belly pain. Your stools are black and tarlike or have streaks of blood. Watch closely for changes in your health, and be sure to contact your doctor if: Your symptoms have not improved after 2 days. Food seems to catch in your throat or chest. Where can you learn more? Log into your personal health record on https://[employer].Colingo and enter T927 in the Education box to learn more about Gastroesophageal Reflux Disease (GERD): Care Instructions. Current as of: December 23, 2015 Content Version: 11.2 4607-5018 [employer]. Care instructions adapted under license by your healthcare professional. If you have questions about a medical condition or this instruction, always ask your healthcare professional. [employer] disclaims any warranty or liability for your use of this information. in this encounter* Patient Instructions - Ritesh Choudhary MD - 12/09/2016 5:39 PM EDT Formatting of this note may be different from the original. Problem List Items Addressed This Visit Other Hyperlipidemia HDL is only slightly below the goal of >45, your NON HDL is >130 but < 160 . Suggest diet and exercise. If not able to get below 130 consider a statin low dose. ONly exercise and a statin raise HDL. Need to find the time for exercise. Activity is great but exercise is activity with a heart rate into the target Zone. Consider calorie counting. But weight loss is minimal without exercise since thebody with turn down the BMI or thermostat [...] and allow cool down until at least fci back to the pre exercise hear rate. Therefor if resting heart rate was 70 and your target heart rate was 120. You need to keep moving and work the muscles until you heart rate is below 95 beats per minute. This reduces cramping and the risk of cardiac irritability post exercise. Goal is a minimum of 150 minutes per week an d>180 if improvements need to be made. Relevant Orders Lipid Panel in this encounter* Patient Instructions - Ritesh Choudhary MD - [...] buy is required by law to have informationon it which breaks down the caloric values [...] weight loss is minimal without exercise since thebody with turn down the BMI or thermostat [...] and allow cool down until at least fci back to the pre exercise hear rate. [...] lean body mass you conventional body not toturn down its basal metabolic rate. 80% or more of your total caloric needs are burned due to your basic metabolic rate. So tell your body that you are are dieting and allowing it to turn down your ba jas metabolic rate sabotages your ability to lose [...] 20 pounds per year. in this encounter Assessments Diagnosis Flu-like symptoms - Primary Depression, unspecified depr ession type Depression, acute Viral upper respiratory trac t infection Acute upper respiratory infections of unspecified site Obesity, Class I, BMI 30-34. 9 Diagnosis Gastroesophageal reflux dise ase, esophagitis presence not specified Depression, acute Obesity, Class I, BMI 30-34. 9 Diagnosis Hyperlipidemia, unspecified hyperlipidemia type Diagnosis Hamstring injury, right, ini tial encounter - Primary Diagnosis Partial hamstring tear, righ t, subsequent encounter - Primary Diagnosis Mixed hyperlipidemia - Prima ry Gastroesophageal reflux dise ase, esophagitis presence not specified Obesity, Class I, BMI 30-34. 9 Diagnosis Kidney stone- Primary Calculus of kidney Diagnosis Concussion without loss of consciousness, initial encounter- Primary History of Present Illness * Ritesh Choudhary MD - 03/19/2018 6:34 AM EST Formatting of this note may be different from the original. Subjective Patient ID: Matilda Escalera is a 53 y.o. male. HPI [...] was seen in the emergency room at [facility] on 01/16/2018. He had a follow-up with [...] history were reviewed and updated as appropriate: allergies, current medications, past family history, past medical history, past social history, past surgicalhistory and problem list. Review of Systems Constitutional: [...] pain, anal bleeding, blood in stool, constipation, diarrhea and rectal pain. Positive for hemorrhoids. Endocrine: Negative [...] Adult Pulse: 83 Resp: 16 Temp: 98 ?F (36.7 ?C) TempSrc: Oral SpO2: 98% Weight: 97.8 kg (215 lb 9.6 oz) Height: 5' 6 Estimated body mass index is 34.8 kg/m as calculated from the following: Height as of this encounter: 5' 6 . Weight as of this encounter: 97.8 kg [...] buy is required by law to have informationon it which breaks down the caloric values [...] weight loss is minimal without exercise since thebody with turn down the BMI or thermostat [...] and allow cool down until at least fci back to the pre exercise hear rate. [...] lean body mass you conventional body not toturn down its basal metabolic rate. 80% or more of your total caloric needs are burned due to your basic metabolic rate. So tell your body that you are are dieting and allowing it to turn down your ba jas metabolic rate sabotages your ability to lose [...] patient was educated about indications for the medication, how to take the medication and potential side effects of the medications. Rationale: Overweight (Findings) BMI Discussed elevated Body Mass Index (BMI): Advised regular exercise. Discussed elevated Body Mass Index (BMI): Advised healthy and appropriate diet. * Mary Dorantes LPN - 01/17/2018 4:51 PM EDT Rooming Documentation How often do you need to [...] understand their medications Are you taking any [id number] medications or supplements? Patient Response: None Since last being seen in this office, have you seen another healthcare provider? Patient Response: Yes. If yes, where did you see this provider? Pain Doctor * Jayna Mary SOPHIA Roth - 01/17/2018 3:57 PM EDT Pt here to f/u on his depression. Pt reports he has quit taking the wellbutrin. Pt stopped the medication shortly after it was prescribed. Pt reports it made him feel tired all the time. Pt also in [facility] ED 01/16/18. Pt has a tear in his right hamstring. Pt did f/u with Dr. Watts this AM. in this encounter Reason for Referral Status Reason Specialty Diagnoses / Procedures Referred By Contact Referred To Contact New Request Urology Diagnoses Kidney stone Gabino Díaz MD [address] [place] [address] Giancarlo Palomares MD [address] [place] [id number] Discharge Instructions * Attachments The following attachments cannot be sent through Care Everywhere. * Kidney Stone (Maori) documented in this encounter* Attachments The following attachments cannot be sent through Care Everywhere. * Acute Concussion (Maori) documented in this encounter Summary Purpose Family History No Family History Records FoundUnknown Family Member Name Dates Details Family history of hypertensi on: Other(V17.49, Z82.49) Status:Active Family history of myocardial infarction: Other(V17.3, Z82.49) Status:Active Family history of diabetes m ellitus: Other(V18.0, Z83.3) Status:Active Family history of malignant neoplasm: Other(V16.9, Z80.9) Status:Active Unknown Family Member Name Dates Details Family history of hypertensi on: Other(V17.49, Z82.49) Status:Active Family history of myocardial infarction: Other(V17.3, Z82.49) Status:Active Family history of diabetes m ellitus: Other(V18.0, Z83.3) Status:Active Family history of malignant neoplasm: Other(V16.9, Z80.9) Status:Active Unknown Family Member Name Dates Details Family history of hypertensi on: Other(V17.49, Z82.49) Status:Active Family history of myocardial infarction: Other(V17.3, Z82.49) Status:Active Family history of diabetes m ellitus: Other(V18.0, Z83.3) Status:Active Family history of malignant neoplasm: Other(V16.9, Z80.9) Status:Active Unknown Family Member Name Dates Details Family history of hypertensi on: Other(V17.49, Z82.49) Status:Active Family history of myocardial infarction: Other(V17.3, Z82.49) Status:Active Family history of diabetes m ellitus: Other(V18.0, Z83.3) Status:Active Family history of malignant neoplasm: Other(V16.9, Z80.9) Status:Active Unknown Family Member Name Dates Details Family history of hypertensi on: Other(V17.49, Z82.49) Status:Active Family history of myocardial infarction: Other(V17.3, Z82.49) Status:Active Family history of diabetes m ellitus: Other(V18.0, Z83.3) Status:Active Family history of malignant neoplasm: Other(V16.9, Z80.9) Status:Active Unknown Family Member Name Dates Details Family history of hypertensi on: Other(V17.49, Z82.49) Status:Active Family history of myocardial infarction: Other(V17.3, Z82.49) Status:Active Family history of diabetes m ellitus: Other(V18.0, Z83.3) Status:Active Family history of malignant neoplasm: Other(V16.9, Z80.9) Status:Active Advance Directives No Advanced Directives Records FoundNo Advanced Directives Records FoundNo Advanced Directives Records FoundNo Advanced Directives Records FoundNo Advanced Directives Records FoundNo Advanced Directives Records FoundNo Advanced Directives Records FoundNo Advanced Directives Records Found Chief Complaint * Patient here today to be seen for cough, head & chest congestion, LAW top of head, body aches and chills, loss of appetite and sinus drainage x 3 days. * Patient tested negative for Covid with home kit yesterday. Additional Source Comments Assessment & Plan Note - Ritesh Choudhary MD - 08/14/2017 7:38 PM EDTAssessment & Plan Note - Ritesh Choudhary MD - 07/14/2017 11:33 AM EST Miscellaneous Notes (unrecog nized section and content) Associated Problem(s): Obesity, Class I, BMI 30-34.9 Calorie counting [...] and allow cool down until at least fci back to the pre exercise hear rate. [...] loss or almost 20 pounds per year. Associated Problem(s): URI (upper respiratory infection) Negative Influenza A , if the cloudy drainage persists or worsens call and we will start an antibiotic. Associated Problem(s): Depression, acute Definite improvement in affect overall even though you are processing a viral infection. Suggest that after 2 weeks you are at full effect of the 150mg once a day and that would increase to the 300 XL once a day. The SR or 12 hours dose cannot be taken all at once.in this encounter Associated Problem(s): Depression, acute Try to focus on what you can change and what you cannot change. Make daily goal and be active as possible. The side effects of the medicaiton Are minimal at best. Some will complain of feeling fuzzy and other of increased ability to sweat. Start with 10 mg once a day for the first week and then increase to a full tablet after 1 weeks. Typically maxi,mum effect in about 3 weeks of the 20 mg pill. Associated Problem(s): GERD (gastroesophageal reflux disease) Pantoprazole 40 mg in am for acid suppression . Try to review the information on GERD and Gastritis.in this encounter Associated Problem(s): Obesity, Class I, BMI 30-34.9 Calorie counting [...] and allow cool down until at least fci back to the pre exercise hear rate. [...] loss or almost 20 pounds per year. Associated Problem(s): GERD (gastroesophageal reflux disease) Controlled with the Pantoprazole. Associated Problem(s): Hyperlipidemia You are exactly where you need to be. HDL > 45 and the On HDL is almost at the goal of < 130 at 134.in this encounter Reason for Visit (unrecogniz ed section and content) Reason Comments Depression Torn Hamstring right leg Reason Comments Kidney Stone HX of stones; pain o f 9/10 to RLQ began around 4 am. N/V x 2 took 2 Flomax prior to arrival. Reason Comments Flank Pain Right sided. For ove r a week. Was seen here and diagnosed with a kidney stone. Also went to [facility] ED for the same. Has not had a BM for over a week. Has been using metamucil in addition to taking percocet prescribed for his back. Reason Comments Vomiting Dizziness Reason Comments Rash Reason Comments Foot Pain Patient presents for left foot pain, heel inside sometimes bottom heel. Patient has history of PF, does not remember when he was diagnosed, only in left foot. Duration of pain 8 months. Patient denies accident or injuries (unrecognized sect ion and content) No Status Records FoundNo Status Records FoundNo Status Records FoundNo Status Records FoundNo Status Records FoundNo Status Records FoundNo Status Records FoundNo Status Records Found INFORMATION SOURCE (unrecogn ized section and content) DATE CREATED AUTHOR 01/15/2019 [facility] DATE CREATED AUTHOR AUTHOR'S ORGANIZ ATION 01/22/2019 [facility] DATE CREATED AUTHOR AUTHOR'S ORGANIZ ATION 01/30/2021 [facility] DATE CREATED AUTHOR AUTHOR'S ORGANIZ ATION 04/21/2022 [facility] DATE CREATED AUTHOR AUTHOR'S ORGANIZ ATION 04/21/2022 [employer] DATE CREATED AUTHOR AUTHOR'S ORGANIZ ATION 03/23/2023 [facility] DATE CREATED AUTHOR AUTHOR'S ORGANIZ ATION 01/05/2024 [facility] DATE CREATED AUTHOR AUTHOR'S ORGANIZ ATION 01/29/2024 [facility] Care Teams (unrecognized sec tion and content) Fmd Teacher Relationship Specialty Start Date End Date Page Rodriguez DO [address] [facility] [place] [address] PCP - General 01/16/19 Page Rodriguez DO [address] [facility] [place] [address] PCP - Mateo KATE PCP 05/16/21 Fmd Teacher Relationship Specialty Start Date End Date Page Rodriguez DO [address] [place] [address] PCP - General Internal Medicine 01/24/24 Enoc Watts MD Consulting Physician Orthopedic Surgery 01/17/18 FOR RECORDS PERTAINING TO PATIENTS WHO ARE OR HAVE BEEN ENROLLED IN A CHEMICAL DEPENDENCY/SUBSTANCEABUSE PROGRAM, SOME INFORMATION MAY BE OMITTED. This clinical summary was aggregated from multiple sources. Caution should be exercised in using it in the provision of clinical care. This summary normalizes information from multiple sources, and as a consequence, information in this document may materially change the coding, format and clinical context of patient data. In addition, data may be omitted in some cases. CLINICAL DECISIONS SHOULD BE BASED ON THE PRIMARY CLINICAL RECORDS. LOC&ALL [facility]. provides no warranty or guarantee of the accuracy or completeness of information in this document.
== END | disposition home or self-care (01) ==
LOC: LAB 17:01
PROVIDERS: PCP Internal Medicine; Referring Provider Anesthesiology Pain Medicine; Visit Provider Anesthesiology Pain Medicine
DX: F11.20 Opioid dependence, uncomplicated (principal)
CPT/HCPCS: 80307